=== PATIENT | female | born 1980 | race Caucasian/White ===

== ENCOUNTER 2022-10-28 14:08 | Outpatient (OUT) | payer OTHER, SELFPAY ==
--- NOTE | 2022-10-28 14:22 | US_ITS ---
The [address] [address] Patient Name: REGINALD BURNETT MRN: [id number] date: 1980 Sex: F Assigned Patient Location: [place] Current Patient Location: US Accession/Order Number: [id number] Exam Date: 10/28/2022 14:21 Report Date: 10/28/2022 15:51 At the request of: JACQUIE RAMIREZ Procedure: US pelvis w/ transvaginal EXAM: US pelvis w/ transvaginal HISTORY: Pelvic pain R10.2 COMPARISON: None. TECHNIQUE: Real-time transabdominal imaging of the pelvis. Findings: The uterus is not visualized consistent with provided history of hysterectomy. Nonvisualization of the bilateral ovaries due to overlying bowel gas. IMPRESSION: 1. Visualization of the ovaries. 2. Surgically absent uterus. Electronically authenticated by: ESTEFANI ACEVEDO Date: 10/28/2022 15:51
== END 2022-10-28 14:09 ==
LOC: US 14:14
PROVIDERS: Family Provider Family Medicine; Visit Provider Physician Assistant
DX: R10.2 Pelvic and perineal pain (principal); Z90.710 Acquired absence of both cervix and uterus
CPT/HCPCS: 76830; 76856

== ENCOUNTER 2023-04-19 20:45 | Outpatient (REF) | payer OTHER, SELFPAY ==
[2023-04-23 12:02] LABS: Age Gdln ACOG Testing Note (.); HPV Aptima Negative (Negative); IGP, Aptima HPV, rfx 16/18,45 Note (.)
== END 2023-04-19 20:46 | disposition home or self-care (01) ==
LOC: LAB 20:45
PROVIDERS: Family Provider Family Medicine; Visit Provider Physician Assistant
DX: Z01.419 Encounter for gynecological examination (general) (routine) without abnormal findings (principal)
CPT/HCPCS: 87624; G0145

== ENCOUNTER 2023-05-06 10:59 | Outpatient (OUT) | payer OTHER, SELFPAY ==
--- OUTSIDE RECORDS SUMMARY | 2023-05-06 11:08 | XMS_ITS | CCD ---
Author Name Unknown Address [address] [facility] [address] [place] [address] Organization [facility] Care Team Providers Care Pl Sql Developer Name Role Phone BERENICE, DR HESTER Admitting Unavailable BERENICE, DR HESTER Attending Unavailable BERENICE, DR HESTER Primary Care Unavailable BERENICE, DR HESTER Consulting Unavailable RUMSCHLAG, MEREDITH Admitting Unavailable RUMSCHLAG, MEREDITH Attending Unavailable BERENICE, DR HESTER Primary Care Unavailable POLICARO, MARY LOU Consulting Unavailable RUMSCHLAG, MEREDITH Consulting Unavailable RUMSCHLAG, MEREDITH Admitting Unavailable RUMSCHLAG, MEREDITH Attending Unavailable BERENICE, DR HESTER Primary Care Unavailable RUMSCHLAG, MEREDITH Consulting Unavailable BERENICE, DR HESTER Admitting Unavailable BERENICE, DR HESTER Attending Unavailable BERENICE, DR HESTER Primary Care Unavailable BERENICE, DR HESTER Consulting Unavailable ZIEBER, DR JASON Serna Consulting Unavailable JACQUIE RAMIREZ Attending Unavailable Adelita, Ross Attending Unavailab le Adelita, Ross Admitting Unavailab le Adonis Dozier MD, [facility] Primary Care Unavail able Gianluca ENGINEER CONDUCTOR-COMMERCIAL LINES INSURANCE AGENT, Lima Zaragoza Attending U rosa Dozier MD, [facility] Primary Care Unavail able Lucie Michaels MD Attending Unavail able Adonis Dozier MD, [facility] Primary Care Unavail able Gianluca ENGINEER CONDUCTOR-COMMERCIAL LINES INSURANCE AGENT, Lima Zaragoza Attending U navlorraine Dozier MD, [facility] Primary Care Unavail able Xenia LONDONO, Lucie Hinson Attending Unavail able Adonis Dozier MD, [facility] Primary Care Unavail able Adonis Dozier MD, [facility] Primary Care Unavail able Xenia LONDONO, Lucie Hinson Attending Unavail able Adonis Dozier MD, [facility] Primary Care Unavail able Xenia LONDONO, Lucie Hinson Attending Unavail able Adonis Dozier MD, [facility] Primary Care Unavail able Gianluca ENGINEER CONDUCTOR-COMMERCIAL LINES INSURANCE AGENT, Lima Zaragoza Attending U navailable Adonis Doizer MD, [facility] Primary Care Unavail able Adonis Dozier MD, [facility] Primary Care Unavail able Xenia LONDONO, Lucie Hinson Attending Unavail able Adonis Dozier MD, [facility] Primary Care Unavail able Xenia LONDONO, Lucie Foxlaida Attending Unavail able Gianluca ENGINEER CONDUCTOR-COMMERCIAL LINES INSURANCE AGENT, Lima Zaragoza Attending U navailable Adonis Dozier MD, [facility] Primary Care Unavail able Adonis Dozier MD, [facility] Primary Care Unavail able Xenia LONDONO, Lucie Hinson Attending Unavail able Adonis Dozier MD, [facility] Primary Care Unavail able Gianluca ENGINEER CONDUCTOR-COMMERCIAL LINES INSURANCE AGENT, Lima Zaragoza Attending U navailable Adonis Dozier MD, [facility] Primary Care Unavail able Xenia LONDONO, Lucie Hinson Attending Unavail able Adonis Dozier MD, [facility] Primary Care Unavail able Xenia LONDONO, Lucie Joya Attending Unavail able Adonis Dozier MD, [facility] Primary Care Unavail able Xenia LONDONO, Lucie Foxlaida Attending Unavail able Adonis Dozier MD, [facility] Primary Care Unavail able Xenia LONDONO, Lucie Hinson Attending Unavail able Adonis Dozier MD, [facility] Primary Care Unavail able Gianluca ENGINEER CONDUCTOR-COMMERCIAL LINES INSURANCE AGENT, Lima Zaragoza Attending U navailable Allergies Allergy Classification Reported Allergen(s) Allergy Type Date of Onset Reaction(s) Facility (1 source) Penicillin; Translations: [penicillin] Drug Allergy [facility] Repository Problems Problem Classification Problem Date Documented Date Episodic/Chronic Immunizations and screening for infectious disease (1 source) Encounter for screening for human papillomavirus (HPV); Translations: [ENC SCREENING HUMAN PAPILLOMAVIRUS] Onset: 04-18-2022 Episodic Other connective tissue disease (4 sources) Pain in right thigh; Translations: [PAIN IN RIGHT THIGH] Onset: 04-20-2022 Episodic Other screening for suspected conditions (not mental disorders or infectious disease) (8 sources) Encounter for screening mammogram for malignant neoplasm of breast; Translations: [Encounter for screening for malignant neoplasm of cervix] Onset: 04-13-2022 Episodic Results Test Name Value Interpretation Reference Range Facil ity Provider Letteron 03-08-2023 Provider Letter Michael Dozier MD [address] [place] [address] Re: Janie Burnett Date of Visit: 03/04/2023 Dear Michael Dozier MD, Thank you for the pleasure of contributing to this patient's care. Please see attached office note for my assessment and recommendations from today's visit. Let me know if you have any questions or concerns. Sincerely, Lima Hough, ROSA-BECK Greer Providers: The following document(s) were included in the letter: March 04, 2023 15:54:00 EDT - (03/04/2023) Office Visit Note Normal [facility] Allergy/Immunology Office/Cl inic Noteon 03-04-2023 Allergy/Immunolog y Office/Clinic Note Chief Complaint 3 month follow up for nasal congestion and asthma History of Present Illness Janie is a 42 year old female reporting to our office today for a 3 month follow up for nasal congestion and asthma. Chronic Nasal Congestion: Patient denies any congestion, runny nose and PND. She reports she is using Azelastine and Fluticasone as needed. She also takes Zyrtec daily. She denies any localized reactions with her allergy injections. Asthma: Patient denies any coughing, wheezing and SOB. She is taking Breo daily and Albuterol as needed. She reports she has not needed to use Albuterol since the last office visit. She is not waking up at night due to coughing, wheezing and SOB. She has not been seen in the ER/UC and has not needed antibiotics or oral steroids for breathing symptoms since last office visit. Patient reports she feels like Nucala is still helping her asthma symptoms. She denies any bothersome side effects. She denies any localized reactions at the injection site. Patient reports her epinephrine autoinjector needs to be refilled. Proper technique reviewed. ACT: 24 Peak Flow: 290 70% of Expected: 292 12/02/22: Assessment/Plan 1. Chronic nasal congestion She has been doing well with regards to her rhinitis symptoms on the allergen immunotherapy along with as needed intranasal antihistamine and steroid sprays. I am hopeful that with continued allergy immunotherapy she will need less medications long-term and have persistent symptom control. 2. Severe persistent asthma, well-controlled Her asthma is currently well-controlled on the Breo, Nucala, and albuterol as needed. We discussed that once she has been on allergen immunotherapy and completed treatment course we may consider reevaluation for continuation of Nucala. No changes at this time [1] Review of Systems General Symptoms Appetite change: No Fatigue: No Weakness: No Any frequent/recurrent infections: No Respiratory Symptoms Cough: No Shortness of breath: No Sputum production: No Wheezing: No EENT Symptoms Nasal discharge: No Nasal congestion: No Postnasal drainage: No Sore throat: No Any itching/watering/redne ss to eyes: No Nosebleeds: No Cardiovascular Symptoms Chest pain pressure: No Skin Symptoms Itching: No Rash: No Physical Exam Vitals & Measurements HR: 81 (Peripheral) BP: 135/88 HT: 163 cm WT: 109.9 kg WT: 109.9 kg (Dosing) BMI: 41.36 General: Alert, well nourished, no acute distress. Eye: PERRL, EOMI, normal conjunctiva. HENT: Normocephalic, nonedematous nasal turbinates, moist oral mucosa. Neck: Supple, non-tender, no lymphadenopathy. Lungs: Clear to auscultation, non-labored respiration. Heart: Normal rate, regular rhythm, no murmur, gallop or edema. Skin: Skin is warm, dry and pink, no rashes or lesions. Neurologic: Awake, alert. Psychiatric: Cooperative, appropriate mood and affect. Additional Vitals BP Position/Location: Sitting, Right arm Assessment/Plan 1. Severe persistent asthma Chronic, stable on current therapies. -Continue Breo daily -Continue albuterol as needed for cough, shortness of breath, wheeze -Follow-up with pulmonology as previously planned -Continue Nucala monthly 2. Chronic allergic rhinitis due to fungal spores Chronic nasal symptoms are well controlled on current therapies. Janie is no longer requiring daily oral antihistamines to control symptoms. -Continue Zyrtec daily as needed on shot days -Continue nasal sprays as needed -Continue monthly allergy injections -Notify office if allergy symptoms become uncontrolled Follow-up in 4 months or sooner if needed Time Spent with the Patient I have personally spent [] minutes on this date, directly related to today's patient visit, including pre and post visit work, for this date of service. Time listed does not include time spent on separately billable services. Reviewed previous allergy office notes Problem List/Past Medical History Ongoing Allergic rhinitis due to mold Chronic allergic rhinitis due to fungal spores Depression Eosinophilia Epilepsy GERD Obesity Post-nasal drip Seizures Severe persistent asthma SOB - Shortness of breath Visual impairment Historical No qualifying data Medications ARIPiprazole 10 mg oral tablet, 10 mg= 1 tabs, Oral, Daily azelastine 137 mcg/inh (0.1%) nasal spray, 1 sprays, Nasal, BID, 5 refills benzonatate 200 mg oral capsule Breo Ellipta 200 mcg-25 mcg/inh inhalation powder, 1 puffs, Inhale, Daily cetirizine 10 mg oral tablet, 10 mg= 1 tabs, Oral, Daily, 5 refills citalopram 20 mg oral tablet, 20 mg= 1 tabs, Oral, Daily fluticasone 50 mcg/inh nasal spray, See Instructions, 5 refills lamoTRIgine 100 mg oral tablet, 100 mg= 1 tabs, Oral, BID Misc Medication mometasone 50 mcg/inh nasal spray, 2 sprays, Nasal, BID montelukast 10 mg oral tablet Nucala, 100 mg, Subcutaneous, q28day Nucala 100 mg subcutaneous injection, 100 mg, Subcutane (more content not included)... Normal [facility] Provider Letteron 12-16-2022 Provider Letter Michael Dozier MD [address] [place] [address] Re: Janie Burnett 1980 Date of Visit: 12/02/2022 Dear Michael Dozier, I had the pleasure of evaluating your patient, Janie Burnett, in the [facility] on 12/02/2022. Attached you will find my office visit note with detailed assessment and recommendations. Thank you for allowing me to participate in the care of your kind patient. The patient was provided with discharge instructions, both written and verbal, and follow up has been arranged as stated in the attached note. Please do not hesitate to contact our office with any questions. Sincerely, Lucie Michaels MD MS [facility] [address] [place] [address] C C Providers: The following document(s) were included in the letter: December 02, 2022 17:11:59 EDT - (12/02/2022) Office Visit Note Normal [facility] Allergy/Immunology Office/Cl inic Noteon 12-02-2022 Allergy/Immunolog y Office/Clinic Note Chief Complaint cough History of Present Illness Janie is a 41 year old female here in office for follow up for cough. She states she does get a dry cough, tickle feeling at times. She denies any shortness of breath or wheezing. She denies a cough waking her at night. She states she continues Breo daily, Nucala every 28 days, and her Albuterol as needed. She denies any issues with her Nucala injections. She states she hasn't had to use her Albuterol inhaler in months. She denies any recent illnesses or fevers. She denies needing to go to ER/Urgent care for breathing or allergy issues since last visit. She denies needing any antibiotics or steroids for breathing/allergy issues since last visit. She states she continues to follow pulmonology. Her ACT today = 24. Her Peak flow today = 350. 70% of estimated peak flow = 293. She denies any nasal discharge, nasal congestion, PND, sore throat, itchy/watery/red eyes, nosebleeds, or sinus infections. She continues to take Zyrtec daily as needed and with shot days. She continues Mometasone and Azelastine nasal sprays 1-2 sprays per nostril twice daily as needed. She continues with allergy shots. She states she is doing well with her allergy shots, she states the sites will get red and have some swelling, but usually go away quickly. She started AIT in August of 2020 and reached maintenance dose on 11-19-21. 06/02/22 Assessment/Plan 1. SOB - Shortness of breath Recent onset of intermittent shortness of breath with chest heaviness over the last 24 hours without any other symptoms such as fever, chills, or nasal symptoms. Janie has not trialed albuterol to see if this helps alleviate her shortness of breath. Albuterol 2 puffs (patient's own medication) via inhaler did help alleviate some of the shortness of breath/chest tightness Janie was having. Due to the symptoms we will hold off on Janie receiving her allergy immunotherapy injection today. Peak flows within acceptable range. 2. Severe persistent asthma Chronic, stable until last 24 hours with increased shortness of breath/chest tightness. Will defer to pulmonology to determine if additional medications are needed; lungs are clear, PF good, and pulse ox 97%. - Continue Breo daily (managed by [facility]) [no longer on Singulair per self discretion] -Continue Nucala 100 mg SC every 28 days - Bring epinephrine to each injection visit and keep with you for 2 hours afterwards,; use for treatment of life-threatening allergic reaction as needed. -Call local company hazmat driver's office today to schedule an appt to discuss lingering cough and shortness of breath 3. Allergic rhinitis due to mold -Continue allergen avoidance measures: mold, cat, dog (no regular animal exposure) -Continue Zyrtec 10 mg daily as needed and on shot days - Continue mometasone + azelastine 1-2 sprays of each medication/nostril twice a day as needed - Continue allergy immunotherapy (IT) to reduce symptoms and medication use (start 08/2020; reached maintenance red 0.5 ml on ). Janie can reschedule her next allergy injection once asthma symptoms have resolved. Orders: [id number] AMB Allergy injection NC [1] Physical Exam Vitals & Measurements T: 36.9 ?C (Temporal Artery) HR: 92 (Peripheral) BP: 121/78 HT: 163 cm WT: 110.7 kg WT: 110.7 kg (Dosing) BMI: 41.67 Constitutional: The patient is oriented to person, place, and time and well-developed, well-nourished, and in no distress. HENT: Head: Normocephalic and atraumatic. Right Ear: Tympanic membrane, external ear and ear canal normal. No drainage or tenderness. Tympanic membrane is not injected, not scarred, not perforated, not erythematous and not retracted. Left Ear: Tympanic membrane, external ear and ear canal normal. No drainage or tenderness. Tympanic membrane is not injected, not scarred, not perforated, not erythematous and not retracted. Nose: Mucosal edema moderate (pale boggy nasal mucosa without obstruction or nasal polyps) and rhinorrhea (clear) ispresent. Mouth/Throat: Uvula is midline, oropharynx is clear and moist and mucous membranes are normal. Eyes: Conjunctivae and EOM are normal. Pupils are equal, round, and reactive to light. Neck: Normal range of motion. Neck supple. Cardiovascular: Normal rate and regular rhythm. No murmur heard. Pulmonary/Chest: Effort normal and breath sounds normal. No wheezes. No rales. Abdominal: Soft. Bowel sounds are normal. No masses.Musculoskeletal : Normal range of motion. No visible edema. Neurological: Alert and oriented to person, place, and time. Skin: Skin is warm and dry. No rash noted. Not diaphoretic. No erythema. Psychiatric: Affect normal. Vitals Reviewed Additional Vitals BP 118/88 HR 84 post Nucala and allergy shots Assessment/Plan 1. Chronic nasal congestion She has been doing well with regards to her rhinitis symptoms on the allergen immunotherapy along with as needed intranasal antihistamine and steroid sprays. I am hopeful that with continued allergy imm (more content not included)... Normal [facility] Provider Letteron 06-03-2022 Provider Letter Layla Aden CNP [address] [id number] Re: Janie Burnett Date of Visit: 06/02/2022 Dear Layla Aden COMMERCIAL LINES INSURANCE AGENT, Thank you for the pleasure of contributing to this patient's care. Please see attached office note for my assessment and recommendations from today's visit. Let me know if you have any questions or concerns. Sincerely, Lima Hough APRN-BECK C C Providers: The following document(s) were included in the letter: June 02, 2022 15:22:33 EST - (06/02/2022) Office Visit Note Normal [facility] Provider Letter Michael Dozier MD [address] [place] [address] Re: Janie Burnett Date of Visit: 06/02/2022 Dear Michael Dozier MD, Thank you for the pleasure of contributing to this patient's care. Please see attached office note for my assessment and recommendations from today's visit. Let me know if you have any questions or concerns. Sincerely, Lima Hough APRN-COMMERCIAL LINES INSURANCE AGENT C C Providers: Silva [facility] Allergy/Immunology Office/Cl inic Noteon 06-02-2022 Allergy/Immunolog y Office/Clinic Note Chief Complaint follow up AR History of Present Illness Janie is a 41 year old female in office for a 6 month follow up for AR and Nucala management. Janie notes she has been having intermittent sob that started yesterday. She states she needed to use her albuterol inhaler once 3 days ago for sob that resolved. Janie reports prior to this need, she has not used her rescue inhaler for awhile. Janie reports she has been consistent with receiving her monthly Nucala injections, which she feels has helped her asthma symptoms. She denies any waking at night due to coughing, wheezing, sob, or any steroids for any breathing difficulties. After further discussion, Janie states that she had influenza A about a month ago and she will have a random cough triggered by taking a deep breath. She reports that she needed to take a course of ATB but no steroids at that time. She continues to use Breo 1 puff daily. She states that she has some chest tightness with the sob. She has not attempted to use albuterol to see if it helps her symptoms. She used 2 puffs while in office and did note some relief after PF obtained. ACT score=23 PF: 70% expected of 093=810 1st attempt PF: 250 (poor technique) 2nd attempt PF: 275 (por technique) 3rd attempt PF:320 AR Janie states that allergies are well controlled. She is continuing to use mometasone 2 sprays/nostril along with taking Zyrtec daily. She reports she does not normally miss a dose of her medications. She gets allergy injections and tolerates them well. She denies any itching, redness, or swelling that last more then 3 days. (10/22/21) Assessment/Plan 1. Allergic rhinitis due to mold Chronic nasal and sinus symptoms have significantly improved since starting allergy immunotherapy and no longer requiring oral antihistamine daily to control symptoms. -Continue allergen avoidance measures: mold, cat, dog (no regular animal exposure) -Continue Zyrtec 10 mg daily as needed and on shot days - fluticasone + azelastine 1-2 sprays of each medication/nostril twice a day as needed -Continue allergy immunotherapy (IT) to reduce symptoms and medication use (start 08/2020). Janie would like to transition her allergy shots to her PCP's office (outside provider form given). [1] [1] Follow-up in 6 months for allergic rhinitis on AIT, Nucala management or sooner if needed 2. Severe persistent asthma Chronic, well controlled; significant improvement since starting Nucala and able to step down on daily asthma medications. -Continue Breo daily (managed by [facility]) -Continue to hold Singulair 10 mg daily (discuss with pulmonology regarding discontinuation) -Continue Nucala 100 mg SC every 28 days (managed by Dr. Anu [facility]) [2] [2] 3. Eosinophilia 4. Post-nasal drip [1] Review of Systems General Symptoms Appetite change: No Fatigue: No Weakness: No Any frequent/recurrent infections: No Respiratory Symptoms Cough: No Shortness of breath: Yes Sputum production: No Wheezing: No EENT Symptoms Nasal discharge: No Nasal congestion:No Postnasal drainage: No Sore throat: No Any itching/watering/redne ss to eyes:No Cardiovascular Symptoms Chest pain pressure: Yes Gastrointestinal Symptoms Abdominal pain: No Constipation: No Diarrhea: No Nausea: No Vomiting: No Genitourinary Symptoms Decreased urine output: No Skin Symptoms Itching: No Rash: No Musculoskeletal Back pain: No Joint pain: No Joint stiffness:No Joint swelling: No Neurological Symptoms Headache: No Numbness: No Tremor: No Psychiatric Symptoms Anxiety: No Depression: No Hematologic/Lymphatic Symptoms Bruising: No Bleeding tendencies: No Physical Exam Vitals & Measurements T: 36.0 ?C (Temporal Artery) HR: 99 (Peripheral) BP: 122/86 HT: 163.2 cm WT: 107.6 kg WT: 107.6 kg (Dosing) BMI: 40.4 General: [Alert, well nourished, no acute distress]. Eye: [PERRL, EOMI, normal conjunctiva]. HENT: [Normocephalic, nonedematous nasal turbinates, moist oral mucosa]. Neck: [Supple, non-tender, no lymphadenopathy]. Lungs: [Clear to auscultation, non-labored respiration]. Heart: [Normal rate, regular rhythm, no murmur, gallop or edema]. Skin: [Skin is warm, dry and pink, no rashes or lesions]. Neurologic: [Awake, alert]. Psychiatric: [Cooperative, appropriate mood and affect]. Additional Vitals BP Position/Location: Sitting, Left arm SpO2 on oxygen: 97 % Assessment/Plan 1. SOB - Shortness of breath Recent onset of intermittent shortness of breath with chest heaviness over the last 24 hours without any other symptoms such as fever, chills, or nasal symptoms. Janie has not trialed albuterol to see if this helps alleviate her shortness of breath. Albuterol 2 puffs (patient's own medication) via inhaler did help alleviate some of the shortness of breath/chest tightness Janie was having. Due to the symptoms we will (more content not included)... Normal [facility] FREE T4on 05-12-2022 Free T4 [Mass/Vol] 1.07 ng/dL Normal 0.76-1.46 [facility] Comment on above: Performed By: #### F T4 #### [facility] [address] [place] [address] Dr. Brandon Frank HEMOGRAM AND PLATELon 2022 Hematocrit (Bld) [Volume fraction] 41.7 % Normal 36.0-48.0 [facility] Comment on above: Performed By: #### H H #### [facility] [address] [place] [address] Dr. Brandon Frank Hemoglobin (Bld) [Mass/Vol] 13.7 g/dL Normal 12.0-16.0 [facility] Comment on above: Performed By: #### H H #### [facility] [address] [place] [address] Dr. Brandon Frank MCH (RBC) [Entitic mass] 29.0 pg Normal 26.7-34.0 [facility] Comment on above: Performed By: #### H H #### [facility] [address] [place] [address] Dr. Brandon Frank MCHC (RBC) [Mass/Vol] 32.9 g/dL Normal 29.9-35.2 [facility] Comment on above: Performed By: #### H H #### [facility] [address] [place] [address] Dr. Brandon Frank MCV (RBC) [Entitic vol] 88.3 fL Normal 81.0-99.0 [facility] Comment on above: Performed By: #### H H #### [facility] [address] [place] [address] Dr. Brandon Frank PLT 266 103/ul Normal 150-450 [facility] Comment on above: Performed By: #### H H #### [facility] [address] [place] [address] Dr. Brandon Frank RBC 4.72 106/ul Normal 4.20-5.40 [facility] Comment on above: Performed By: #### H H #### [facility] [address] [place] [address] Dr. Brandon Frank WBC 6.5 103/ul Normal 4.0-11.0 [facility] Comment on above: Performed By: #### H H #### [facility] [address] [place] [address] Dr. Brandon Frank PROF 14(COMP METB)on 023 Albumin [Mass/Vol] 3.4 g/dL Normal 3.4-5.0 [facility] Comment on above: Performed By: #### T SH, CMP #### [facility] [address] [place] [address] Dr. Brandon Frank Albumin/Globulin [Mass ratio] 0.8 {ratio} Normal [facility] Comment on above: Performed By: #### T SH, CMP #### [facility] [address] [place] [address] Dr. Brandon Frank ALP [Catalytic activity/Vol] 82 U/L Normal 46-116 [facility] Comment on above: Performed By: #### T SH, CMP #### [facility] [address] [place] [address] Dr. Brandon Frank ALT [Catalytic activity/Vol] 53 U/L Normal 14-59 [facility] Comment on above: Performed By: #### T SH, CMP #### [facility] [address] [address] [address] Brandon Frank Anion gap [Moles/Vol] 12.6 mmol/L Normal [facility] Comment on above: Performed By: #### T SH, CMP #### [facility] [address] [address] [address] Brandon Frank AST [Catalytic activity/Vol] 37 U/L Normal 15-37 [facility] Comment on above: Performed By: #### T SH, CMP #### [facility] [address] [address] [address] Brandon Frank Bilirubin [Mass/Vol] 0.8 mg/dL Normal 0.2-1.0 [facility] Comment on above: Performed By: #### T SH, CMP #### [facility] [address] [place] [address] Dr. Brandon Frank Calcium [Mass/Vol] 8.9 mg/dL Normal 8.5-10.1 [facility] Comment on above: Performed By: #### T SH, CMP #### [facility] [address] [place] [address] Dr. Brandon Frank Chloride [Moles/Vol] 104 mmol/L Normal 98-107 [facility] Comment on above: Performed By: #### T SH, CMP #### [facility] [address] [place] [address] Dr. Brandon Frank CO2 [Moles/Vol] 25.8 mmol/L Normal 21.0-32.0 [facility] Comment on above: Performed By: #### T SH, CMP #### [facility] [address] [place] [address] Dr. Brandon Frank Creatinine [Mass/Vol] 0.81 mg/dL Normal 0.55-1.02 [facility] Comment on above: Performed By: #### T SH, CMP #### [facility] [address] [place] [address] Dr. Brandon Frank EGFR-AF FILIPINO >60 Normal >=60 [facility] Comment on above: Performed By: #### T SH, CMP #### [facility] [address] [place] [address] Dr. Brandon Frank EGFR-NON AF FILIPINO >60 Normal >=60 [facility] Comment on above: Performed By: #### T SH, CMP #### [facility] [address] [place] [address] Dr. Brandon Frank Globulin (S) [Mass/Vol] 4.1 g/dL Normal [facility] Comment on above: Performed By: #### T SH, CMP #### [facility] [address] [place] [address] Dr. Brandon Frank Glucose [Mass/Vol] 107 mg/dL Critically high 74-106 [facility] Comment on above: Performed By: #### T XENA, CMP #### [facility] [address] [place] [address] Dr. Brandon Frank Potassium [Moles/Vol] 4.4 mmol/L Normal 3.5-5.1 [facility] Comment on above: Performed By: #### T XENA, CMP #### [facility] [address] [place] [address] Dr. Brandon Frank Protein [Mass/Vol] 7.5 g/dL Normal 6.4-8.2 [facility] Comment on above: Performed By: #### T XENA, CMP #### [facility] [address] [place] [address] Dr. Brandon Frank Sodium [Moles/Vol] 138 mmol/L Normal 136-145 [facility] Comment on above: Performed By: #### T XENA, CMP #### [facility] [address] [place] [address] Dr. Brandon Frank Urea nitrogen [Mass/Vol] 10.0 mg/dL Normal 7.0-18.0 [facility] Comment on above: Performed By: #### T SH, CMP #### [facility] [address] [place] [address] Dr. Brandon Frank Urea nitrogen/Creatini ne [Mass ratio] 12.3 mg/mg Normal [facility] Comment on above: Performed By: #### T XENA, CMP #### [facility] [address] [place], [place] [address] Dr. Brandon Frank TSHon 05-12-2022 TSH 1.593 uIU/mL Normal 0.358-3.740 [facility] Comment on above: Performed By: #### T , [facility] #### [facility] [address] [place], [place] [address] Dr. Brandon Frank MG MAMM SCREEN 3D ANTONIO CADon 04-30-2022 MG MAMM SCREEN 3D ANTONIO CAD Patient: JANIE BURNETT Exam Date: 04/30/2022 : 1980 Gender:F Ordering : DR KACIE ETIENNE . Admission #: [id number] Family : Order #: [id number] CLICK HERE TO VIEW EXAM RADIOLOGY REPORT PROCEDURE: MAMMOGRAM SCREENING 3D BILATERAL CAD COMPARISON: None. INDICATIONS: Screening for malignant neoplasm of breast Calculator Name NCI Breast Cancer Risk Assessment Tool 5 Year Breast Cancer Risk 0.70% Lifetime Breast Cancer Risk 10.90% Personal Breast Cancer No Personal Ovarian Cancer No Treatments None Family Cancers None LOCATION: [facility] BREAST COMPOSITION: Scattered areas fibroglandular density. FINDINGS: DIAGNOSTIC CATEGORY 2--BENIGN FINDING: RIGHT BREAST: No significant suspicious finding. Scattered benign-appearing asymmetries and lymph nodes are present. LEFT BREAST: No significant suspicious finding. RECOMMENDATIONS: ROUTINE MAMMOGRAM AND CLINICAL EVALUATION IN 12 MONTHS. PLEASE NOTE: A NORMAL MAMMOGRAM DOES NOT EXCLUDE THE POSSIBILITY OF BREAST CANCER. A CLINICALLY SUSPICIOUS PALPABLE LUMP SHOULD BE BIOPSIED. Dictated by: Jason Hagan M.D. on 04/30/2022 at 15:38 Approved by: Jason Hagan M.D. on 04/30/2022 at 15:42 Normal [facility] US TANNA DOP LEG RTon 04-30-20 22 US TANNA DOP LEG RT Begin Addendum # 1 There are no images provided of the right groin, per tandem mill sticker there was no evidence of an inguinal hernia on the exam. If patient with persistent right groin pain, a dedicated CT could be performed. Exclude hematuria. Original Report ULTRASOUND RIGHT LOWER EXTREMITY COLOR VENOUS DUPLEX HISTORY: Swelling. Right groin pain. COMPARISON: None. PROCEDURE: Duplex ultrasound and Doppler images were obtained of the right lower extremity. Venous duplex examination performed using B-mode, color flow and spectral analysis. FINDINGS: There is normal color flow and compressibility seen in the visualized deep venous structures of the right lower extremity with no evidence for thrombosis seen. The profundus and saphenous veins are patent. There are normal venous Doppler waveforms. IMPRESSION: No evidence for DVT. Normal [facility] PAP ACOG PANEL 2: 30 to 65on 04-21-2022 . . Normal [facility] Comment on above: Result Comment: Perf ormed at: WB Performed By: #### [id number] #### [facility] [address] [address] [address] Brandon Frank Age Gdln ACOG Testing 30-65 Normal [facility] Comment on above: Performed By: #### [id number] #### [facility] [address] [address] [address] Brandon Frank DIAGNOSIS: Comment Normal [facility] Comment on above: Result Comment: NEGA TIVE FOR INTRAEPITHELIAL LESION OR MALIGNANCY. PREDOMINANCE OF COCCOBACILLI CONSISTENT WITH SHIFT IN VAGINAL ADI IS PRESENT. Performed at: WB Performed By: #### [id number] #### [facility] [address] [address] [address] Brandon Frank HPV Aptima Negative Normal Negative [facility] Comment on above: Result Comment: This nucleic acid amplification test detects fourteen high-risk HPV types (16,18,31,33,35,39,45,51,52,56,58,59,66,68) without differentiation. Performed at: =G Performed By: #### [id number] #### [facility] [address] [address] [address] Brandon Frank HPV Genotype Reflex Comment Normal [facility] Comment on above: Result Comment: Crit eria not met, HPV Genotype not performed. Performed at: WB Performed By: #### [id number] #### [facility] [address] [address] [address] Brandon Frank Methodology: Comment Normal [facility] Comment on above: Result Comment: This liquid based ThinPrep(R) pap test was screened with the use of an image guided system. Performed at: WB Performed By: #### [id number] #### [facility] [address] [place] [address] Dr. Brandon Frank Note: Comment [facility] Comment on above: Result Comment: The Pap smear is a screening test designed to aid in the detection of premalignant and malignant conditions of the uterine cervix. It is not a diagnostic procedure and should not be used as the sole means of detecting cervical cancer. Both false-positive and false-negative reports do occur. . Performed at: WB Performed By: #### [id number] #### [facility] [address] [address] [address] Brandon Frank Performed by: Comment Normal [facility] Comment on above: Result Comment: Nida Nguyen, [employer] Performed at: WB Performed By: #### [id number] #### [facility] [address] [place] [address] Dr. Brandon Frank Specimen adequacy: Comment [facility] Comment on above: Result Comment: Sati sfactory for evaluation. No endocervical component is identified. Performed at: WB Performed By: #### [id number] #### [facility] [address] [place] [address] Dr. Brandon Frank Ambulatory Clinical Summaryo n 07-30-2020 Ambulatory Clinical Summary {[id number] Normal [facility] Patient Educationon 07-31-19 21 Patient Education Urinary Frequency The number of times a normal person urinates depends upon how much liquid they take in and how much liquid they are losing. If the temperature is hot and there is high humidity then the person will sweat more and usually breathe a little more frequently. These factors decrease the amount of frequency of urination that would be considered normal. The amount you drink is easily determined, but the amount of fluid lost is sometimes more difficult to calculate. Fluid is lost in two ways: ? Sensible fluid loss is usually measured by the amount of urine that you get rid of. Losses of fluid can also occur with diarrhea. ? Insensible fluid loss is more difficult to measure. It is caused by evaporation. Insensible loss of fluid occurs through breathing and sweating. It usually ranges from a little less than a quart to a little more than a quart of fluid a day. In normal temperatures and activity levels the average person may urinate 4 to 7 times in a 24-hour period. Needing to urinate more often than that could indicate a problem. If one urinates 4 to 7 times in 24 hours and has large volumes each time, that could indicate a different problem from one who urinates 4 to 7 times a day and has small volumes. The time of urinating is also an important. Most urinating should be done during the waking hours. Getting up at night to urinate frequently can indicate some problems. CAUSES The bladder is the organ in your lower abdomen that holds urine. Like a balloon, it swells some as it fills up. Your nerves sense this and tell you it is time to head for the bathroom. There are a number of reasons that you might feel the need to urinate more often than usual. They include: ? Urinary tract infection. This is usually associated with other signs such as burning when you urinate. ? In men, problems with the prostate (a walnut-size gland that is located near the tube that carries urine out of your body). There are two reasons why the prostate can cause an increased frequency of urination: ? An enlarged prostate that does not let the bladder empty well. If the bladder only half empties when you urinate then it only has half the capacity to fill before you have to urinate again. ? The nerves in the bladder become more hypersensitive with an increased size of the prostate even if the bladder empties completely. ? . ? Obesity. Excess weight is more likely to cause a problem for women more than for men. ? Bladder stones or other bladder problems. ? Caffeine. ? Alcohol. ? Medications. For example, drugs that help the body get rid of extra fluid (diuretics ) increase urine production. Some other medicines must be taken with lots of fluids. ? Muscle or nerve weakness. This might be the result of a spinal cord injury, a stroke, multiple sclerosis or Parkinson's disease. ? Long-standing diabetes can decrease the sensation of the bladder. This loss of sensation makes it harder to sense the bladder needs to be emptied. Over a period of years the bladder is stretched out by constant overfilling. This weakens the bladder muscles so that the bladder does not empty well and has less capacity to fill with new urine. ? Interstitial cystitis (also called painful bladder syndrome). This condition develops because the tissues that line the insider of the bladder are inflamed (inflammation is the body's way of reacting to injury or infection). It causes pain and frequent urination. It occurs in women more often than in men. DIAGNOSIS ? To decide what might be causing your urinary frequency, your healthcare provider will probably: ? Ask about symptoms you have noticed. ? Ask about your overall health. This will include questions about any medications you are taking. ? Do a physical examination. ? Order some tests. These might include: ? A blood test to check for diabetes or other health issues that could be contributing to the problem. ? Urine testing. This could measure the flow of urine and the pressure on the bladder. ? A test of your neurological system (the brain, spinal cord and nerves). This is the system that senses the need to urinate. ? A bladder test to check whether it is emptying completely when you urinate. ? Cytoscopy. This test uses a thin tube with a tiny camera on it. It offers a look inside your urethra and bladder to see if there are problems. ? Imaging tests. You might be given a contrast dye and then asked to urinate. X-rays are taken to see how your bladder is working. TREATMENT It is important for you to be evaluated to determine if the amount or frequency that you have is unusual or abnormal. If it is found to be abnormal the cause should be determined and this can usually be found out easily. Depending upon the cause treatment could include medication, stimulation of the nerves, or surgery. There are not too many things that you can do as an individual to change your urinary frequency. It is important that you balance the amount of fluid intake needed to compensate for your activity and the temperature. Medical problems will be diagnosed and taken care of by your physician. There is no particular bladder training such as Kegel's exercises that you can do to help urinary frequency. This is an exercise this is usually done for people who have leaking of urine when they laugh cough or sneeze. HOME CARE INSTRUCTIONS ? Take any medications your healthcare provider prescribed or suggested. Follow the directions carefully. ? Practice any lifestyle changes that are recommended. These might include: ? Drinking less fluid or drinking at different times of the day. If you need to urinate often during the night, for example, you may need to stop drinking fluids early in the evening. ? Cutting down on caffeine or alcohol. They both can make you need to urinate more often than normal. Caffeine is found in coffee, tea and sodas. ? Losing weight, if that is recommended. ? Keep a journal or a log. You might be asked to record how much you drink and when and when you feel the need to urinate. This will also help evaluate how well the treatment provided by your physician is working. SEEK MEDICAL CARE IF: ? Your need to urinate often gets worse. ? You feel increased pain or irritation when you urinate. ? You notice blood in your urine. ? You have questions about any medications that your healthcare provider recommended. ? You notice blood, pus or swelling at the site of any test or treatment procedure. ? You develop a fever of more than 100.5? F (38.1? C). SEEK IMMEDIATE MEDICAL CARE IF: You develop a fever of more than 102.0? F (38.9? C). Document Released: 02/20/2010 Document Revised: 07/18/2012 Document Reviewed: 02/20/2010 ExitCare? Patient Information ?2013 [employer]. Normal [facility] Urology Office/Clinic Noteon 07-30-2020 Urology Office/Clinic Note Chief Complaint Janie is here today for follow-up visit. She states that her voiding complaints have significantly improved since her urethral dilation was completed. HPI Staff Janie is a 39 y.o. female here for a 4 month follow up. Patient has a hx of incomplete bladder emptying, urge incontinence and urgency of urination.. Patient is S/P cysto/ UD 03/25/20.. Dysuria: _Denies Incomplete bladder emptying: _most of the time Hematuria: _No visible blood in urine Frequency: _yes, but feels like not a lot comes out Urgency: _yes Nocturia: _Denies Stream: _some hesitancy at times. Leaking: _yes Post void dripping: _Denies Wearing pads/ Depends: _Denies Urge incontinence: _yes, mild Stress incontinence: _mild Incontinence without Sensory Awareness: _Denies Abdominal pain: _Denies Flank pain: _Denies Sexual complaints: _ History of Present Illness Reviewed last encounter. There have been no associated fever, chills, flank pain or blood in the urine. Pt. denies any pain/burning with urination at this time. Review of Systems PHQ Score Initial Depression Screen Score: 0 ROS - Provider Constitutional: denies weight loss, denies hot flashes. Eyes: denies eye problems. Gastrointestinal: denies nausea, denies vomiting. Cardiovascular: denies chest pain or angina. Integumentary: no dryness Musculoskeletal: denies musculoskeletal symptoms. ENMT: denies otolaryngeal symptoms. Respiratory: no shortness of breath. Heme/Lymph: denies easy bleeding tendency, denies easy bruising tendency. Psychiatric: no confusion, no anxiety. Genitourinary: denies vaginal discharge, denies incontinence, denies dysuria, denies hematuria, denies urinary frequency, denies amenorrhea, denies menorrhagia, denies abnormal bleeding, denies pelvic pain, denies genital sores, and denies decreased libido. Physical Exam Vitals & Measurements HR: 72(Peripheral) BP: 95/75 HT: 160 cm HT: 160.0 cm WT: 92.98 kg WT: 93.0 kg BMI: 36.32 General Appearance: alert , no acute distress, well nourished, well developed female. Genitourinary: bladder nonpalpable, no flank pain. Assessment/Plan Overall most of her symptoms have resolved. She still has occasional voiding problems as listed. Will follow up as needed. 1. Other urethral stricture, female (N35.82: Other urethral stricture, female) S/p Cysto/UD 03/25/2020. Pt. is doing well overall w/ urination since the procedure. All questions/concerns were discussed. Pt. to call the office if sheencounters any issues prior. Pt. acknowledges understanding. 2. Incomplete bladder emptying (R33.9: Retention of urine, unspecified) Hx of. Pt. feels that she is emptying most of the time. PVR today - 75ml. 3. Frequency of urination (R35.0: Frequency of micturition) Improved w/ UD. 4. Urge incontinence (N39.41: Urge incontinence) Mild. 5. Urinary hesitancy (R39.11: Hesitancy of micturition) Intermittent. I have reviewed the previous health record information and history for this pt. from Dr. Nguyen. Follow-up With When Contact Information Patrick Hyatt MD, Yemi [address] [place] [place] [address]- Additional Instructions: prn Patient Education Urinary Frequency I, Erna Barron , personally scribed for Dr. Nguyen on 07/30/2020 13:50:40. . Documentation recorded by the scribe, Erna Barron, accurately reflects the services(s) I performed and decisions made by me. Authenticated by Dr. Nguyen on 07/30/2020 14:14:02. Problem List/Past Medical History Ongoing BMI 37.0-37.9, adult Chronic headaches Chronic sinusitis Depression Deviated nasal septum Epilepsy Flank pain Incomplete bladder emptying Urge incontinence Urgency of urination Historical No qualifying data Procedure/Surgical History Cystourethroscopy with dilation of urethral stricture (03/25/2020), septoplasty image guided (03/14/2015), bilateral frontal sinus exploration (03/02/2013), bilateral maxillary antrostomy (03/02/2013), bilateral sphenoidotomy with image guidance (03/02/2013), bilateral total ethmoidectomy (03/02/2013), Hysterectomy, TEMPORAL LOBE SURGERY, Tubal ligation. Medications cyanocobalamin 250 mcg oral tablet, 250 mcg= 1 tab(s), Oral, Daily Cymbalta 30 mg Cap-DR, 1 cap(s), Oral, BID Flonase 0.05 mg/inh Hardin, 2 spray(s), Nasal, BID Flovent HFA 220 Inhaler, 2 puff(s), Inhalation, BID, PRN Lamictal 100 mg Tab, 100 mg= 1 tab(s), Oral, BID metformin 500 mg ER Tab, Oral, Daily Nexium 40 mg Cap-EC, 1 tab, Oral, Daily, PRN Symbicort 80/4.5 inhalation aerosol with adapter, 2 puff(s), Inhalation, BID traZODONE 100 mg Tab, Oral, BID Allergies penicillin (Trouble breathing) Social History Alcohol - Denies Alcohol Use, 02/20/2013 Substance Abuse - Denies Substance Abuse, 02/20/2013 Tobacco - Denies Tobacco Use, 02/20/2013 Never (less than 100 in lifetime) Tobacco Use:. Never Smokeless Tobacco Use:., 07/30/2020 Family History Asthma: Mother. Diabetes mellitus: Grandparent. Hypertension: Father. Primary malignant neoplasm of lung: Grandparent. Immunizations Vaccine Date Status influenza virus vaccine, inactivated 01/2020 Recorded Normal [facility] Comment on above: Result Comment: Elec tronically Signed By: Patrick Hyatt MD, Yemi Yee\.br\Date and Time Signed: 07/30/20 14:14 EDT\.br\Electronically Co-Signed By: Erna Barron MA\.br\Date and Time Co-Signed: 07/30/20 13:50 EDT Consent for Procedure/Surger yon 03-26-2020 Consent for Procedure/Surgery [id number] 0CD:127 Normal [facility] Ambulatory Clinical Summaryo n 03-25-2020 Ambulatory Clinical Summary {[id number] }[id number] Normal [facility] Patient Educationon 03-25-20 20 Patient Education Obesity Obesity is having too much body fat and a body mass index (BMI) of 30 or more. BMI is a number based on your height and weight. The number is an estimate of how much body fat you have. Obesity can happen if you eat more calories than you can burn by exercising or other activity. It can cause major health problems or emergencies. HOME CARE ? Exercise and be active as told by your doctor. Try: ? Using stairs when you can. ? Parking farther away from store doors. ? Gardening, biking, or walking. ? Eat healthy foods and drinks that are low in calories. Eat more fruits and vegetables. ? Limit fast food, sweets, and snack foods that are made with ingredients that are not natural (processed food ). ? Eat smaller amounts of food. ? Keep a journal and write down what you eat every day. Websites can help with this. ? Avoid drinking alcohol. Drink more water and drinks without calories. ? Take vitamins and dietary pills (supplements ) only as told by your doctor. ? Try going to weight-loss support groups or classes to help lessen stress. Dieticians and counselors may also help. GET HELP RIGHT AWAY IF: ? You have chest pain or tightness. ? You have trouble breathing or feel short of breath. ? You feel weak or have loss of feeling (numbness ) in your legs. ? You feel confused or have trouble talking. ? You have sudden changes in your vision. MAKE SURE YOU: ? Understand these instructions. ? Will watch your condition. ? Will get help right away if you are not doing well or get worse. Document Released: 07/18/2012 Document Reviewed: 07/18/2012 ExitCare? Patient Information ?2013 [employer]. [facility] Medicine Obesity Obesity is having too much body fat and a body mass index (BMI) of 30 or more. BMI is a number based on your height and weight. The number is an estimate of how much body fat you have. Obesity can happen if you eat more calories than you can burn by exercising or other activity. It can cause major health problems or emergencies. HOME CARE ? Exercise and be active as told by your doctor. Try: ? Using stairs when you can. ? Parking farther away from store doors. ? Gardening, biking, or walking. ? Eat healthy foods and drinks that are low in calories. Eat more fruits and vegetables. ? Limit fast food, sweets, and snack foods that are made with ingredients that are not natural (processed food ). ? Eat smaller amounts of food. ? Keep a journal and write down what you eat every day. Websites can help with this. ? Avoid drinking alcohol. Drink more water and drinks without calories. ? Take vitamins and dietary pills (supplements ) only as told by your doctor. ? Try going to weight-loss support groups or classes to help lessen stress. Dieticians and counselors may also help. GET HELP RIGHT AWAY IF: ? You have chest pain or tightness. ? You have trouble breathing or feel short of breath. ? You feel weak or have loss of feeling (numbness ) in your legs. ? You feel confused or have trouble talking. ? You have sudden changes in your vision. MAKE SURE YOU: ? Understand these instructions. ? Will watch your condition. ? Will get help right away if you are not doing well or get worse. Document Released: 07/18/2012 Document Reviewed: 07/18/2012 ExitCare? Patient Information ?2013 [employer]. [facility] Urology Office/Clinic Noteon 03-25-2020 Urology Office/Clinic Note Chief Complaint cysto/ud This patient is a 39-year-old female with a history of urgency and urgency incontinence. Symptoms have become more severe and she was referred by Dr. Etienne for evaluation and management. Initial evaluation showed a PVR of 271 cc. HPI Staff cysto/UD. Scope #3 used. History of Present Illness I have reviewed the previous health record information and history for this patient from Dr. Nguyen I have reviewed and verified the staff HPI to be accurate for this encounter. Physical Exam Vitals & Measurements HR: 95(Peripheral) RR: 16 BP: 122/83 HT: 160 cm HT: 160.0 cm Procedure Operative Information Anesthesia Type: Local Procedure: Local Cystoscopy with Urethral Dilation Complications: None Surgical risks, benefits, details of the procedure have been explained to the patient. Full informed consent has been obtained. Intraoperative Information Prepped: Patient is brought back to the endoscopy suite. Patient is placed in modified dorso/lithotomy position. Patient prepped in the usual fashion with Betadine solution. 2% Xylocaine Jelly is placed per Urethra. After waiting several minutes, the Cystoscope is introduced. The Urethra is: Tight there was moderate mucosal prolapse. No urethral or periurethral masses were noted. The Bladder: Normal, Trabeculated: None (0) The Ureteral orifices: Show efflux of clear urine The Urethra was dilated to: 28 Spanish with sounds. Urethral dilation was uneventful. Removal: Cystoscope is removed. The patient tolerated it well. Postoperative Information Patient is discharged home with antibiotic coverage. Follow up arranged. Assessment/Plan 1. Incomplete bladder emptying (R33.9: Retention of urine, unspecified) Patient come in for cysto/ud. She has a long history of not being able to completely empty her bladder therefore urge and incontinence exist. Patient tolerated procedure well. 2. Urge incontinence (N39.41: Urge incontinence) 3. BMI 37.0-37.9, adult (Z68.37: Body mass index [BMI] 37.0-37.9, adult) The standard range for ages 18 and older is >=18.5 and < 25 kg/m2. Your BMI today was above this range, this falls in the overweight to obese category and there are medical benefits to weight loss. We can offer counselling, referral, and/or medical support in addressing this problem. Your BMI and weight management will be followed at subsequent visits. Follow-up With When Contact Information Patrick Hyatt MD, Yemi Yee In 4 weeks [address], [place] [address]- Additional Instructions: Patient Education Obesity, Wwqt-xe-Hcms Obesity, Waqi-ns-Ivws IRossy, personally scribed for Dr. Nguyen on 03/25/2020 13:56:34. . Documentation recorded by the scribe, Rossy Aranda, accurately reflects the services(s) I performed and decisions made by me. Authenticated by Dr. Nguyen on 03/25/2020 13:58:41. Problem List/Past Medical History Ongoing BMI 37.0-37.9, adult Chronic headaches Chronic sinusitis Depression Deviated nasal septum Epilepsy Flank pain Incomplete bladder emptying Urge incontinence Urgency of urination Historical No qualifying data Procedure/Surgical History Cystourethroscopy with dilation of urethral stricture (03/25/2020), septoplasty image guided (03/14/2015), bilateral frontal sinus exploration (03/02/2013), bilateral maxillary antrostomy (03/02/2013), bilateral sphenoidotomy with image guidance (03/02/2013), bilateral total ethmoidectomy (03/02/2013), Hysterectomy, TEMPORAL LOBE SURGERY, Tubal ligation. Medications cyanocobalamin 250 mcg oral tablet, 250 mcg= 1 tab(s), Oral, Daily Cymbalta 30 mg Cap-DR, 1 cap(s), Oral, BID Flonase 0.05 mg/inh Hardin, 2 spray(s), Nasal, BID Flovent HFA 220 Inhaler, 2 puff(s), Inhalation, BID, PRN Lamictal 100 mg Tab, 100 mg= 1 tab(s), Oral, BID metformin 500 mg ER Tab, Oral, Daily Nexium 40 mg Cap-EC, 1 tab, Oral, Daily, PRN Symbicort 80/4.5 inhalation aerosol with adapter, 2 puff(s), Inhalation, BID traZODONE 100 mg Tab, Oral, BID Allergies penicillin (Trouble breathing) Social History Alcohol - Denies Alcohol Use, 02/20/2013 Substance Abuse - Denies Substance Abuse, 02/20/2013 Tobacco - Denies Tobacco Use, 02/20/2013 Never (less than 100 in lifetime) Tobacco Use:. Never Smokeless Tobacco Use:., 03/05/2020 Family History Asthma: Mother. Diabetes mellitus: Grandparent. Hypertension: Father. Primary malignant neoplasm of lung: Grandparent. Diagnostic Results Cystoscopy was benign. There was urethral stenosis and this was dilated without complication. Normal [facility] Comment on above: Result Comment: Elec tronically Signed By: Patrick Hyatt MD, Yemi Yee\.br\Date and Time Signed: 03/25/20 13:58 EST\.br\Electronically Co-Signed By: Rossy Aranda MA\.br\Date and Time Co-Signed: 03/25/20 13:56 EST Formson 03-06-2020 Forms [id number] 03 [id number] CD:127 Normal [facility] Ambulatory Clinical Summaryo n 03-05-2020 Ambulatory Clinical Summary {[id number] Normal [facility] Patient Educationon 03-05-20 20 Patient Education Family Medicine Overactive Bladder, Adult The bladder has two functions that are totally opposite of the other. One is to relax and stretch out so it can store urine (fills like a balloon), and the other is to contract and squeeze down so that it can empty the urine that it has stored. Proper functioning of the bladder is a complex mixing of these two functions. The filling and emptying of the bladder can be influenced by: ? The bladder. ? The spinal cord. ? The brain. ? The nerves going to the bladder. ? Other organs that are closely related to the bladder such as prostate in males and the vagina in females. As your bladder fills with urine, nerve signals are sent from the bladder to the brain to tell you that you may need to urinate. Normal urination requires that the bladder squeeze down with sufficient strength to empty the bladder, but this also requires that the bladder squeeze down sufficiently long to finish the job. In addition the sphincter muscles, which normally keep you from leaking urine, must also relax so that the urine can pass. Coordination between the bladder muscle squeezing down and the sphincter muscles relaxing is required to make everything happen normally. With an overactive bladder sometimes the muscles of the bladder contract unexpectedly and involuntarily and this causes an urgent need to urinate. The normal response is to try to hold urine in by garret the sphincter muscles. Sometimes the bladder contracts so strongly that the sphincter muscles cannot stop the urine from passing out and incontinence occurs. This kind of incontinence is called urge incontinence. Having an overactive bladder can be embarrassing and awkward. It can keep you from living life the way you want to. Many people think it is just something you have to put up with as you grow older or have certain health conditions. In fact, there are treatments that can help make your life easier and more pleasant. CAUSES Many things can cause an overactive bladder. Possibilities include: ? Urinary tract infection or infection of nearby tissues such as the prostate. ? Prostate enlargement. ? In women, multiple pregnancies or surgery on the uterus or urethra. ? Bladder stones, inflammation or tumors. ? Caffeine. ? Alcohol. ? Medications. For example, diuretics (drugs that help the body get rid of extra fluid) increase urine production. Some other medicines must be taken with lots of fluids. ? Muscle or nerve weakness. This might be the result of a spinal cord injury, a stroke, multiple sclerosis or Parkinson's disease. ? Diabetes can cause a high urine volume which fills the bladder so quickly that the normal urge to urinate is triggered very strongly. SYMPTOMS ? Loss of bladder control. You feel the need to urinate and cannot make your body wait. ? Sudden, strong urges to urinate. ? Urinating 8 or more times a day. ? Waking up to urinate two or more times a night. DIAGNOSIS To decide if you have overactive bladder, your healthcare provider will probably: ? Ask about symptoms you have noticed. ? Ask about your overall health. This will include questions about any medications you are taking. ? Do a physical examination. This will help determine if there are obvious blockages or other problems. ? Order some tests. These might include: ? A blood test to check for diabetes or other health issues that could be contributing to the problem. ? Urine testing. This could measure the flow of urine and the pressure on the bladder. ? A test of your neurological system (the brain, spinal cord and nerves). This is the system that senses the need to urinate. Some of these tests are called flow tests, bladder pressure tests and electrical measurements of the sphincter muscle. ? A bladder test to check whether it is emptying completely when you urinate. ? Cytoscopy. This test uses a thin tube with a tiny camera on it. It offers a look inside your urethra and bladder to see if there are problems. ? Imaging tests. You might be given a contrast dye and then asked to urinate. X-rays are taken to see how your bladder is working. TREATMENT An overactive bladder can be treated in many ways. The treatment will depend on the cause. Whether you have a mild or severe case also makes a difference. Often, treatment can be given in your healthcare provider's office or clinic. Be sure to discuss the different options with your caregiver. They include: ? Behavioral treatments. These do not involve medication or surgery: ? Bladder training. For this, you would follow a schedule to urinate at regular intervals. This helps you learn to control the urge to urinate. At first, you might be asked to wait a few minutes after feeling the urge. In time, you should be able to schedule bathroom visits an hour or more apart. ? Kegel exercises. These exercises strengthen the pelvic floor muscles, which support the bladder. By toning these muscles, they can help control urination, even if the bladder muscles are overactive. A specialist will teach you how to do these exercises correctly. They will require daily practice. ? Weight loss. If you are obese or overweight, losing weight might stop your bladder from being overactive. Talk to your healthcare provider about how many pounds you should lose. Also ask if there is a specific program or method that would work best for you. ? Diet change. This might be suggested if constipation is making your overactive bladder worse. Your healthcare provider or a tutor coordinator can explain ways to change what you eat to ease constipation. Other people might need to take in less caffeine or alcohol. Sometimes drinking fewer fluids is needed, too. ? Protection. This is not an actual treatment. But, you could wear special pads to take care of any leakage while you wait for other treatments to take effect. This will help you avoid embarrassment. ? Physical treatments. ? Electrical stimulation. Electrodes will send gentle pulses to the nerves or muscles that help control the bladder. The goal is to strengthen them. Sometimes this is done with the electrodes outside of the body. Or, they might be placed inside the body (implanted ). This treatment can take several months to have an effect. ? Medications. These are usually used along with other treatments. Several medicines are available. Some are injected into the muscles involved in urination. Others come in pill form. Medications sometimes prescribed include: ? Anticholinergics. These drugs block the signals that the nerves deliver to the bladder. This keeps it from releasing urine at the wrong time. Researchers think the drugs might help in other ways, too. ? Imipramine. This is an antidepressant. But, it relaxes bladder muscles. ? Botox. This is still experimental. Some people believe that injecting it into the bladder muscles will relax them so they work more normally. It has also been injected into the sphincter muscle when the sphincter muscle does not open properly. This is a temporary fix, however. Also, it might make matters worse, especially in older people. ? Surgery. ? A device might be implanted to help manage your nerves. It works on the nerves that signal when you need to urinate. ? Surgery is sometimes needed with electrical stimulation. If the electrodes are implanted, this is done through surgery. ? Sometimes repairs need to be made through surgery. For example, the size of the bladder can be changed. This is usually done in severe cases only. HOME CARE INSTRUCTIONS ? Take any medications your healthcare provider prescribed or suggested. Follow the directions carefully. ? Practice any lifestyle changes that are recommended. These might include: ? Drinking less fluid or drinking at different times of the day. If you need to urinate often during the night, for example, you may need to stop drinking fluids early in the evening. ? Cutting down on caffeine or alcohol. They can both make an overactive bladder worse. Caffeine is found in coffee, tea and sodas. ? Doing Kegel exercises to strengthen muscles. ? Losing weight, if that is recommended. ? Eating a healthy and balanced diet. This will help you avoid constipation. ? Keep a journal or a log. You might be asked to record how much you drink and when, and also when you feel the need to urinate. ? Learn how to care for implants or other devices, such as pessaries. SEEK MEDICAL CARE IF: ? Your overactive bladder gets worse. ? You feel increased pain or irritation when you urinate. ? You notice blood in your urine. ? You have questions about any medications or devices that your healthcare provider recommended. ? You notice blood, pus or swelling at the site of any test or treatment procedure. ? You have an oral temperature above 102? F (38.9? C). SEEK IMMEDIATE MEDICAL CARE IF: You have an oral temperature above 102? F (38.9? C), not controlled by medicine. Document Released: 02/20/2010 Document Revised: 07/18/2012 Document Reviewed: 02/20/2010 ExitCare? Patient Information ?2013 [employer]. [facility] Urology Office/Clinic Noteon 03-05-2020 Urology Office/Clinic Note Chief Complaint New pt referred by Dr Etienne for urgency and incontinence This patient is a 39-year-old female referred for evaluation of urinary frequency urgency and some urgency incontinence. Her symptoms are becoming more severe. She is here today for urologic consultation. HPI Staff New pt referred by Dr. Etienne for urgency and incontinence. PVR today - 271ml. Pain with urination:Pt denies pain or burning. Blood in urine:Pt denies Incomplete bladder emptying:Pt states kind of but sometimes she feels like she has to still go. Frequency:Pt denies Urgency:Pt states that sometimes she has to stop and cross her legs. Nocturia:Pt denies Hesitancy:Pt denies Urination requires straining:Pt denies Stream:Pt denies Stream starts and stops:t denies Leaking before getting to the restroom:Pt states occasionally Urinary incontinence without sensory awareness:Pt denies Temporarily unable to restrain urination with body movement:Pt denies Wearing pad/Depends:Pt denies Urine odor:Pt denies Flank/Back pain:Pt states that she has lower back pain that spreads to the hip area. Abdominal pain:Pt denies History of Present Illness Reviewed [employer] and [employer] paper works. There have been no associated fever, chills, or blood in the urine. Pt. denies any pain/burning with urination at this time. Review of Systems ROS - Provider Constitutional: denies weight loss, denies hot flashes. Eyes: denies eye problems. Gastrointestinal: denies nausea, denies vomiting. Cardiovascular: denies chest pain or angina. Integumentary: no dryness Musculoskeletal: denies musculoskeletal symptoms. ENMT: denies otolaryngeal symptoms. Respiratory: no shortness of breath. Heme/Lymph: denies easy bleeding tendency, denies easy bruising tendency. Psychiatric: no confusion, no anxiety. Genitourinary: denies vaginal discharge, moderate incontinence, denies dysuria, denies hematuria, denies urinary frequency, denies amenorrhea, denies menorrhagia, denies abnormal bleeding, denies pelvic pain, denies genital sores, and denies decreased libido. Physical Exam Vitals & Measurements HR: 95(Peripheral) RR: 16 BP: 108/75 HT: 160.0 cm HT: 160 cm WT: 96.0 kg WT: 96.0 kg BMI: 37.5 General Appearance: alert , no acute distress, well nourished, well developed female. Head: normocephalic . Eyes: normal orbit and globe. ENMT: normal examination of external ears. Chest: Lungs CTA, respirations non labored . Cardiovascular: regular rate and rhythm. Abdomen: soft, non distended, no tenderness, no mass or organomegaly, no hernia. Genitourinary: bladder nonpalpable, no flank tenderness. Lymph Nodes: unremarkable palpation of the cervical area. Skin: warm, dry, no bruising. Psychiatric: cooperative, affect appropriate for age, normal judgement, euthymic mood. Assessment/Plan This patient is being scheduled for cystoscopy and dilation of the urethra. Further urologic work-up will be performed depending on the results of this procedure. Urinalysis today showed no infection. 1. Incomplete bladder emptying (R33.9: Retention of urine, unspecified) PVR today - 271ml. Will schedule Cysto with UD. The procedure risks, benefits, details, and treatment alternatives have been discussed with the patient. These include bleeding, infection, recurrent scar in over 50%, need for repeat dilation or other procedures, no symptom relief with dilation, among others. Full informed consent has been obtained. Will order Local anesthesia. [facility] [place]. Ordered: Urology Procedure Order 2. Urge incontinence (N39.41: Urge incontinence) Moderate. Ordered: Urology Procedure Order 3. Flank pain (R10.9: Unspecified abdominal pain) Lower back pain that spreads to the hip area. Ordered: Urology Procedure Order Orders: ciprofloxacin, 500 mg = 1 tab(s), Oral, Daily, Take 1 one day prio to procedure and 1 after procedure is completed, X 2 day(s), # 2 tab(s), Refills(s) 0, Pharmacy: [id number], 160, cm, 03/05/20 10:44:00 EDT, Height/Length Dosing, 96, kg, 03/05/20 10:43:00... Urnls Dip Stick Auto w/o Microscopy POC 43532 Urnls Dip Stick Auto w/o Microscopy POC 34385 I have reviewed the previous health record information and history for this pt. from Dr. Nguyen. Follow-up With When Contact Information Patrick Hyatt MD, Yemi [address] Additional Instructions: Patient Education Overactive Bladder, Adult I, Erna Barron , personally scribed for Dr. Nguyen on 03/05/2020 11:12:49. . Documentation recorded by the scribe, Erna Barron, accurately reflects the services(s) I performed and decisions made by me. Authenticated by Dr. Nguyen on 03/05/2020 12:21:07. Problem List/Past Medical History Ongoing Chronic headaches Chronic sinusitis Depression Deviated nasal septum Epilepsy Flank pain Incomplete bladder emptying Urge incontinence Urgency of urination Historical No qualifying data Procedure/Surgical History septoplasty image guided (03/14/2015), bilateral frontal sinus exploration (03/02/2013), bilateral maxillary antrostomy (03/02/2013), bilateral sphenoidotomy with image guidance (03/02/2013), bilateral total ethmoidectomy (03/02/2013), Hysterectomy, TEMPORAL LOBE SURGERY, Tubal ligation. Medications cyanocobalamin 250 mcg oral tablet, 250 mcg= 1 tab(s), Oral, Daily Cymbalta 30 mg Cap-DR, 1 cap(s), Oral, BID Flonase 0.05 mg/inh Hardin, 2 spray(s), Nasal, BID Flovent HFA 220 Inhaler, 2 puff(s), Inhalation, BID, PRN Lamictal 100 mg Tab, 100 mg= 1 tab(s), Oral, BID metformin 500 mg ER Tab, Oral, Daily Nexium 40 mg Cap-EC, 1 tab, Oral, Daily, PRN Symbicort 80/4.5 inhalation aerosol with adapter, 2 puff(s), Inhalation, BID traZODONE 100 mg Tab, Oral, BID Allergies penicillin (Trouble breathing) Social History Alcohol - Denies Alcohol Use, 02/20/2013 Substance Abuse - Denies Substance Abuse, 02/20/2013 Tobacco - Denies Tobacco Use, 02/20/2013 Never (less than 100 in lifetime) Tobacco Use:. Never Smokeless Tobacco Use:., 03/05/2020 Family History Asthma: Mother. Diabetes mellitus: Grandparent. Hypertension: Father. Primary malignant neoplasm of lung: Grandparent. Lab Results Ambulatory Point of Care Results Bilirubin Urine Dipstick: Negative (03/05/20 10:44:00) Blood Urine Dipstick: Negative (03/05/20 10:44:00) Glucose Urine Dipstick: Negative (03/05/20 10:44:00) Ketones Urine Dipstick: Negative (03/05/20 10:44:00) Leukocytes Urine Dipstick: Negative (03/05/20 10:44:00) Nitrite Urine Dipstick: Negative (03/05/20 10:44:00) Protein Urine Dipstick: Trace (03/05/20 10:44:00) Specific [place] Urine Dipstick: 1.020 (03/05/20 10:44:00) Urine Appearance Urine Dipstick: Cloudy (03/05/20 10:44:00) Urine Color Urine Dipstick: Yellow (03/05/20 10:44:00) Urobilinogen Urine Dipstick: Normal 0.2-1 EU/dl (03/05/20 10:44:00) pH Urine Dipstick: 7.5 (03/05/20 10:44:00) Diagnostic Results Reviewed urinalysis showing no evidence of infection. Reviewed the note from Dr. Etienne. PVR today was 271 cc. Normal [facility] Comment on above: Result Comment: Elec tronically Signed By: Patrick Hyatt MD, Yemi Yee\.br\Date and Time Signed: 03/05/20 12:21 EDT\.br\Electronically Co-Signed By: Erna Barron MA\.br\Date and Time Co-Signed: 03/05/20 11:13 EDT CNPNon 09-06-2018 CNPN Telephone ([id number]) JANIE BURNETT ([id number]) 1980 F Date Time Provider Department 09/06/18 RAMIREZ FOOTE [id number] During your visit today, we recorded the following information about you: Ghazal Mitchell [facility] 09/06/2018 4:03 PM Signed General call : Full name of person calling: Janie Burnett Relationship to patient: Self Phone # : [phone] Reason for call: Please refax letter to excuse her for jury duty. They didn't receive first notice and they're giving her notice that she should attend tomorrow morning. Faxed to . Patient of Dr. Pati Lilly RN, RN 09/06/2018 4:18 PM Signed Spoke with patient and she advises that she did speak with the court. They were able to locate original signed letter. No further action needed from this office. Cathleen Lilly RN Allergies As of Date: 09/06/2018 (No Known Allergies) Date Reviewed: 05/20/2017 Reviewed by: Gabby Mahoney Ma - Fully Assessed Reason for Visit: General [Other] Cmt: See Encounter 08/05/18, resend letter Reason For Visit History Recorded Prescriptions as of 09/06/2018 Sig: CITALOPRAM 20 MG TABLET Take 0.5 tablets by mouth onc* LAMOTRIGINE 100 MG TABLET Take 2 tablets by mouth twice* NEXIUM 40 MG CAPSULE,DELAYED * Take one(1) capsule daily as * Problem List As Of Date 09/06/2018 Noted Resolved Unspecified epilepsy without mention of intract*INVALID FOR*03/20/2011 Depression [F32.9] INVALID FOR* Partial epilepsy secondarily generalized [IMO00*INVALID FOR* Encounter Status:Closed by GHAZAL JOLLEY on 09/06/18 [facility] Encounters Encounter Date Encounter Type Care Provider Facility Start: 04-28-2023 End: 04-29-2023 ambulatory Michael Dozier MD Facility:[facility] Start: 04-19-2023 End: 04-19-2023 ambulatory JACQUIE RAMIREZ Not Available Start: 03-31-2023 End: 04-01-2023 ambulatory Michael Dozier MD Facility:[facility] Start: 03-04-2023 End: 03-05-2023 ambulatory Michael Dozier MD Facility:[facility] Start: 02-01-2023 End: 02-02-2023 ambulatory Michael Dozier MD Facility:[facility] Start: 01-18-2023 ambulatory Ross Vanegas acility:[facility] Start: 01-04-2023 End: 01-05-2023 ambulatory Michael Dozier MD Facility:[facility] Start: 12-02-2022 End: 12-03-2022 ambulatory Michael Dozier MD Facility:[facility] Start: 11-03-2022 End: 11-04-2022 ambulatory Michael Dozier MD Facility:[facility] Start: 10-06-2022 End: 10-07-2022 ambulatory Michael Dozier MD Facility:[facility] Start: 09-10-2022 End: 09-11-2022 ambulatory Michael Dozier MD Facility:[facility] Start: 09-07-2022 End: 09-08-2022 ambulatory Michael Dozier MD Facility:[facility] Start: 08-05-2022 ambulatory Michael Dozier MD Facility:[facility] Start: 07-08-2022 End: 07-09-2022 ambulatory Michael Dozier MD Facility:[facility] Start: 06-10-2022 End: 06-11-2022 ambulatory Michael Dozier MD Facility:[facility] Start: 06-02-2022 End: 06-03-2022 ambulatory Michael Dozier MD Facility:[facility] Start: 05-12-2022 ambulatory MEREDITH TATUM Facilit y:[facility] Start: 05-05-2022 End: 05-06-2022 ambulatory Michael Dozier MD Facility:[facility] Start: 04-30-2022 End: 05-01-[address] KACIE ETIENNE Facility:[facility] Start: 04-20-2022 End: 04-21-2022 ambulatory MEREDITH WINN Facility:[facility] Start: 04-13-2022 End: 04-13-[address] KACIE ETIENNE Facility:[facility] Payers Date Payer Category Payer Self-pay 2021 Unknown [id number] 2020 Unknown 1980 Unknown [id number] .16.84 [id number] 1979 Unknown [id number] .16.84 0.1.472512.3.579.2.593 1979 Unknown [id number] .16.84 0.1.320116.3.579.2.593 1979 Unknown [id number] .16.84 0.1.983651.3.579.2.593 1979 Unknown [id number] 2.840 .1.781383.3.579.2.1259 1979 Unknown [id number] . 840.1.325903.3.579.2.196 1979 Unknown [id number] . 840.1.703878.3.579.2.196 1979 Unknown [id number] . 840.1.886046.3.579.2.196 1979 Unknown [id number] . 840.1.298446.3.579.2.196 1979 Unknown [id number] 2.16 840.1.576866.3.579.2.196 1979 Unknown [id number] 2.16 840.1.251158.3.579.2.196 1979 Unknown [id number] 2.16 840.1.605568.3.579.2.196 1979 Unknown [id number] 2.16 840.1.055125.3.579.2. 1979 Unknown [id number] 2.16 840.1.142322.3.579.2.196 1979 Unknown [id number] 2. 840.1.310609.3.579.2. 1979 Unknown [id number] 2. 840.1.296024.3.579.2. 1979 Unknown [id number] 2. 840.1.373222.3.579.2. 1979 Unknown [id number] 2. 840.1.418010.3.579.2.196 1979 Unknown [id number] 2. 840.1.326823.3.579.2. 1979 Unknown [id number] 2. 840.1.284229.3.579.2.196 1979 Unknown [id number] 2. 840.1.921279.3.579.2. 1979 Unknown [id number] 2.16 840.1.348956.3.579.2.196 1979 Unknown [id number] 2.16 840.1.839688.3.579.2. 1979 Unknown [id number] 2.16 840.1.838555.3.579.2. 1979 Unknown [id number] 2.16 840.1.116804.3.579.2.196 Summary Purpose Family History No Family History Records FoundNo Family History Records FoundNo Family History Records FoundNo Family History Records FoundNo Family History Records FoundNo Family History Records Found Advance Directives No Advanced Directives Records FoundNo Advanced Directives Records FoundNo Advanced Directives Records FoundNo Advanced Directives Records FoundNo Advanced Directives Records FoundNo Advanced Directives Records Found Additional Source Comments INFORMATION SOURCE (unrecogn ized section and content) DATE CREATED AUTHOR 09/11/2018 [facility] DATE CREATED AUTHOR AUTHOR'S ORGANIZ ATION 07/31/2020 [facility]ier Trigg [facility] DATE CREATED AUTHOR AUTHOR'S ORGANIZ ATION 05/12/2022 [facility] DATE CREATED AUTHOR AUTHOR'S ORGANIZ ATION 04/20/2023 [facility] DATE CREATED AUTHOR AUTHOR'S ORGANIZ ATION 04/25/2023 [facility] DATE CREATED AUTHOR AUTHOR'S ORGANIZ ATION 04/29/2023 [facility] FOR RECORDS PERTAINING TO PATIENTS WHO ARE OR HAVE BEEN ENROLLED IN A CHEMICAL DEPENDENCY/SUBSTANCEABUSE PROGRAM, SOME INFORMATION MAY BE OMITTED. This clinical summary was aggregated from multiple sources. Caution should be exercised in using it in the provision of clinical care. This summary normalizes information from multiple sources, and as a consequence, information in this document may materially change the coding, format and clinical context of patient data. In addition, data may be omitted in some cases. CLINICAL DECISIONS SHOULD BE BASED ON THE PRIMARY CLINICAL RECORDS. [facility]. provides no warranty or guarantee of the accuracy or completeness of information in this document.
--- NOTE | 2023-05-06 11:22 | MM_ITS ---
Patient Name: REGINALD BURNETT MR#: [id number] : 1980 Exam Date: 05/06/2023 Ordering Doctor: GE Loredo . RADIOLOGY REPORT PROCEDURE: MM TOMOSYNTHESIS SCREENING BI COMPARISON: MG MAMM SCREEN 3D ANTONIO CAD, 04/30/2022. INDICATIONS: screening Calculator Name NCI Breast Cancer Risk Assessment Tool 5 Year Breast Cancer Risk 0.80% Lifetime Breast Cancer Risk 10.80% Personal Breast Cancer No Personal Ovarian Cancer No Treatments None Family Cancers None LOCATION: [facility] BREAST COMPOSITION: Scattered areas fibroglandular density. FINDINGS: DIAGNOSTIC CATEGORY 2--BENIGN FINDING: RIGHT BREAST: No significant suspicious finding. Stable asymmetries mid upper central breast. No significant change has occurred. LEFT BREAST: No significant suspicious finding. No significant change has occurred. RECOMMENDATIONS: ROUTINE MAMMOGRAM AND CLINICAL EVALUATION IN 12 MONTHS. PLEASE NOTE: A NORMAL MAMMOGRAM DOES NOT EXCLUDE THE POSSIBILITY OF BREAST CANCER. A CLINICALLY SUSPICIOUS PALPABLE LUMP SHOULD BE BIOPSIED. Dictated by: Jason Hagan M.D. on 05/06/2023 at 13:14 Approved by: Jason Hagan M.D. on 05/06/2023 at 13:21
== END 2023-05-06 11:00 | disposition home or self-care (01) ==
LOC: MAMMO 10:59
PROVIDERS: Family Provider Family Medicine; Visit Provider Physician Assistant
DX: Z12.31 Encounter for screening mammogram for malignant neoplasm of breast (principal)
CPT/HCPCS: 77063; 77067

== ENCOUNTER 2024-04-24 21:54 | Outpatient (REF) | payer OTHER, SELFPAY ==
--- OUTSIDE RECORDS SUMMARY | 2024-04-24 21:57 | XMS_ITS | CCD ---
Author Organization [facility] CliniSysc Care Team Providers Care Wall Cleaner Name Role Phone BERENICE, DR HESTER Admitting Unavailable BERENICE, DR HESTER Attending Unavailable BERENICE, DR HESTER Primary Care Unavailable BERENICE, DR HESTER Consulting Unavailable RUMSCHLAG, NAHOMY Admitting Unavailable RUMSCHLAG, NAHOMY Attending Unavailable BERENICE, DR HESTER Primary Care Unavailable POLICAROMARY LOU Consulting Unavailable RUMSCHLAG, NAHOMY Consulting Unavailable RUMSCHLAG, NAHOMY Admitting Unavailable RUMNAHOMY CONNELLY Attending Unavailable BERENICE, DR HESTER Primary Care Unavailable RUMSCHLAG, NAHOMY Consulting Unavailable BERENICE, DR HESTER Admitting Unavailable BERENICE, DR HESTER Attending Unavailable BERENICE, DR HESTER Primary Care Unavailable BERENICE, DR HESTER Consulting Unavailable ZIEBER, DR MARILU Serna Consulting Unavailable JACQUIE RAMIREZ Attending Unavailable Rumschlag DO, Nahomy K Primary Care Provider [phone] Sulma Braga Unavailable Enoch Nguyen Unavailable DO Nahomy Winn Primary Care Provider DO Enoch Nguyen Attending Provider [phone] PUSHPA Rolon Attending Provider RUMSCHLAG, NAHOMY K Primary Care Unavailable ALAN CAREY Attending Unavailable ALAN CAREY Attending Unavailable ALAN CAREY Referring Unavailable RUMSCHLAG, NAHOMY K Primary Care Unavailable TOMAS RODRIGUEZ Referring Unavailable RUMSCHLAG, NAHOMY K Primary Care Unavailable SHARLA BIRCH Referring Unavailable RUMSCHLAG, NAHOMY K Primary Care Unavailable HOLGER LE Referring Unavailable RUMSCHLAG, NAHOMY K Primary Care Unavailable EVANS, REGGIE N Referring Unavaila ble EVANS, REGGIE N Primary Care Unavaila ble TOMAS RODRIGUEZ Attending Unavailable RUMSCHLAG, NAHOMY K Referring Unavailable RUMSCHLAG, NAHOMY K Primary Care Unavailable RUMSCHLAG, NAHOMY K Primary Care Unavailable RUMSCHLAG, NAHOMY K Referring Unavailable RUMSCHLAG, NAHOMY K Primary Care Unavailable SHARLA BIRCH N Attending Unavailable TANK, VISHAL Attending Unavailable RUMSCHLAG, NAHOMY K Referring Unavailable RUMSCHLAG, NAHOMY K Primary Care Unavailable RAHELDANIE R Referring Unavailable RUMSCHLAG, NAHOMY K Primary Care Unavailable TANK, VISHAL Attending Unavailable RUMSCHLAG, NAHOMY K Referring Unavailable RUMSCHLAG, NAHOMY K Primary Care Unavailable HORTENCIA CAMARA Referring Unavailable EVANS, REGGIE N Primary Care Unavaila ble TANK, VISHAL Attending Unavailable RUMSCHLAG, NAHOMY K Referring Unavailable EVANS, REGGIE N Primary Care Unavaila ble TANK, VISHAL Referring Unavailable RUMSCHLAG, NAHOMY K Primary Care Unavailable TANK, VISHAL Attending Unavailable RUMSCHLAG, NAHOMY K Referring Unavailable RUMSCHLAG, NAHOMY K Primary Care Unavailable Rumschlag, DO Nahomy Primary Care Provider MD Ross Ureña Attending Provider [phone] Rumschlag, Nahomy Primary Care Unavailable Margarita Rolon Admitting Unavailable Margarita Rolon Attending Unavailable Enoch Nguyen Admitting Unavailable Enoch Nguyen Attending Unavailable Rumschlag, Nahomy Primary Care Unavailable Ross Ureña Admitting Unavailab le Ross Ureña Attending Unavailab le Rumschlag DO, Nahomy Vicente Primary Care Unavail able Xenia LONDONO, Lucie Hinson Attending Unavail able Adonis Dozier MD, [facility] Primary Care Unavail able Xenia LONDONO, Lucie Hinson Attending Unavail able Adonis Dozier MD, Michael Primary Care Unavail able Xenia LONDONO, Lucie Hinson Attending Unavail able Rumschlag DO, Nahomy Vicente Primary Care Unavail able Xenia LONDONO, Lucie Hinson Attending Unavail able Rumschlag DO, Nahomy Vicente Primary Care Unavail able Xenia LONDONO, Lucie Hinson Attending Unavail able Rumschlag DO, Nahomy Vicente Primary Care Unavail able Xenia LONDONO, Lucie Hinson Attending Unavail able Gianluca SMOKE ROOM OPERATOR-SCOOP OPERATOR, Lima Zaragoza Attending U navailable Rumschlag DO, Nahomy Vicente Primary Care Unavail able Gianluca SMOKE ROOM OPERATOR-SCOOP OPERATOR, Lima Zaragoza Attending U navailable Rumschlag DO, Nahomy Vicente Primary Care Unavail able Rumschlag DO, Nahomy Vicente Primary Care Unavail able Xenia LONDONO, Lucie Hinson Attending Unavail able Rumschlag DO, Nahomy Vicente Primary Care Unavail able Xenia LONDONO, Lucie Hinson Attending Unavail able Xenia LONDONO, Lucie Hinson Attending Unavail able Rumschlag DO, Nahomy Vicente Primary Care Unavail able Rumschlag DO, Nahomy Vicente Primary Care Unavail able Rumschlag DO, Nahomy Vicente Primary Care Unavail able Xenia LONDONO, Lucie Hinson Attending Unavail able Rumschlag DO, Nahomy Vicente Primary Care Unavail able Xenia LONDONO, Lucie Hinson Attending Unavail able Rumschlag DO, Nahomy Vicente Primary Care Unavail able Xenia LONDONO, Lucie Hinson Attending Unavail able Gianluca SMOKE ROOM OPERATOR-SCOOP OPERATOR, Lima Zaragoza Attending U navailable Rumschlag DO, Nahomy Vicente Primary Care Unavail able Rumschlag DO, Nahomy Vicente Primary Care Unavail able Xenia LONDONO, Lucie Hinson Attending Unavail able Allergies Allergy Classification Reported Allergen(s) Allergy Type Date of Onset Reaction(s) Facility (8 sources) dog skin extract; Translations: [DOG EPITHELIUM ALLERGENIC EXTRACT] [facility] ([facility]) Penicillin; Translations: [PENICILLIN] Drug Allergy 1 shortness of breath [facility] (8 sources) Penicillins; Translations: [PENICILLINS] Propensity to adverse reactions to drug 0 Shortness Of Breath [facility] (5 sources) Cat Dander; Translations: [CAT DANDER] Propensity to adverse reactions to drug 4 [facility] (1 source) Penicillins Drug allergy (disorder) 4 [facility] Repository Medications Current Medications Medication Drug Class(es) Dates Sig (Normalized) Sig (Original) acetaminophen 500 mg oral tablet (6 sources) Start: 07-30-2022 take 2 tablets by mouth every eight hours as needed for pain acetaminophen (TYLENOL EXTRA STRENGTH) 500 mg tablet Indications: Closed fracture of left ankle, initial encounter Take 2 tablets (1,000 mg total) by mouth every 8 (eight) hours as needed for pain. 180 tablet 2 07/30/2022 Active [id number] 200 actuat albuterol 0.09 mg/actuat metered dose inhaler (12 sources) beta2-Adrenergic Agonist Start: 06-04-2022 take 2 puff(s) by inhalation every six hours as needed for wheezing albuterol (PROVENTIL HFA;VENTOLIN HFA) 90 mcg/actuation inhaler Indications: Severe persistent asthma without complication Inhale 2 puffs every 6 (six) hours as needed for wheezing. 18 g 6 06/04/2022 Active Start: 08-14-2021 take 3 mL by inhalat ion every six hours as needed for wheezing albuterol (PROVENTIL,VENTOLIN) 2.5 mg /3 mL (0.083 %) nebulizer solution Indications: Severe persistent asthma without complication Inhale 3 mL (2.5 mg total) by nebulization every 6 (six) hours as needed for wheezing. 360 mL 6 08/14/2021 Active ARIPiprazole 10 mg oral tablet (8 sources) Atypical Antipsychotic take 1 tablet by mouth in the morning ARIPiprazole (ABILIFY) 10 mg tablet Take 1 tablet (10 mg total) by mouth in the morning. 0 Active aspirin 81 mg delayed release oral tablet (5 sources) Platelet Aggregation Inhibitor, Nonsteroidal Anti-inflammatory Drug Start: 10-06-19 24 Aspirin (Adult Low Dose Aspirin) 81 mg tablet,delayed release (DR/EC) Active 81 MG PO Daily October 06, 2023 12:00am take 1 tablet by mouth in the mo rning aspirin 81 mg Take 1 tablet (81 mg total) by mouth in the morning. 0 Active azelastine hydrochloride 0.137 mg/actuat metered dose nasal spray (5 sources) Histamine-1 Receptor Antagonist take 1 spray(s) nasal route in the morning azelastine (ASTELIN) 137 mcg (0.1 %) nasal spray Administer 1 spray into each nostril in the morning and 1 spray before bedtime. 0 Active take 1 spray(s) nasal route twic e daily Azelastine HCl 137 MCG/SPRAY USE 1 SPRAY(S) IN EACH NOSTRIL TWICE DAILY Nasal for 50 Days Active baclofen 20 mg oral tablet (6 sources) gamma-Aminobutyric Acid-ergic Agonist Start: 06-26-2022 baclofen (LIORESAL) 20 mg tablet 1 ml benralizumab 30 mg/ml prefilled syringe (2 sources) Interleukin-5 Receptor alpha-directed Cytolytic Antibody Start: 10-06-2023 Benralizumab (Fasenra) 30 mg/mL syringe Active MG SUBCUT October 06, 2023 12:00am biotin 10 mg oral tablet (2 sources) take 1 tablet by mouth every twenty-four hours Biotin 78602 MCG 1 tablet Orally Once a day Active calcium citrate 950 mg oral tablet (6 sources) Start: 07-29-2022 take 2 tablets by mouth three times daily calcium citrate (CALCITRATE) 200 mg (950 mg) tablet Take 2 tablets (400 mg total) by mouth 3 (three) times a day. 90 tablet 0 07/29/2022 Active cetirizine hydrochloride 10 mg oral tablet (10 sources) Histamine-1 Receptor Antagonist Start: 10-06-2023 take 10 mg by mouth once daily Cetirizine Active 10 MG PO Daily October 06, 2023 12:00am Start: 11-17-2020 cetirizine (Zy rTEC) 10 mg tablet Take 1 tablet (10 mg total) by mouth as needed. 0 11/17/2020 Active Cholecalciferol (8 sources) Vitamin D Start: 10-06-2023 take 10 ug by mouth once daily Cholecalciferol (Vitamin D3) Active 10 MCG PO Daily October 06, 2023 12:00am Start: 07-30-2022 take 1 tablet by tricia th in the morning cholecalciferol, vitamin D3, 2,000 units tablet Take 1 tablet (2,000 Units total) by mouth in the morning. 30 tablet 0 07/30/2022 Active citalopram 20 mg oral tablet (10 sources) Serotonin Reuptake Inhibitor Start: 10-06-2023 take 20 mg by mouth once daily Citalopram Active 20 MG PO Daily October 06, 2023 12:00am Start: 11-15-2019 citalopram (Ce Nelson) 20 mg tablet Take 1 tablet (20 mg total) by mouth daily. Can resume once zithromax course complete. 0 11/15/2019 Active clindamycin 150 mg oral capsule (2 sources) Lincosamide Antibacterial Start: 07-01-2023 End: 07-08-2023 take 2 capsules by mouth three times daily clindamycin (CLEOCIN) 150 mg capsule Take 2 capsules (300 mg total) by mouth 3 (three) times a day for 7 days. 42 capsule 0 07/01/2023 07/08/2023 Active diphenhydrAMINE hydrochloride 50 mg oral capsule (6 sources) Histamine-1 Receptor Antagonist Start: 08-12-2022 diphenhydrAMINE (BENADRYL) 50 mg capsule 1 capsule (50 mg total) nightly as needed. 0 08/12/2022 Active [id number] 0.3 ml EPINEPHrine 1 mg/ml auto-injector (3 sources) alpha-Adrenergic Agonist, beta-Adrenergic Agonist, Catecholamine EPINEPHrine (EPIPEN) 0.3 mg/0.3 mL auto-injector 0.3 mL (0.3 mg total) as needed. 0 Active Fluticasone Furoate-Vilanterol (10 sources) Corticosteroid, beta2-Adrenergic Agonist Start: 10-06-2023 Fluticasone Furoate-Vilanterol (Breo Ellipta) 200-25 mcg/dose blister with device Active INHALATION October 06, 2023 12:00am Start: 06-09-2023 take 1 puff(s) by in halation in the morning fluticasone furoate-vilanteroL (BREO ELLIPTA) 200-25 mcg/dose blister with device Indications: Severe persistent asthma without complication Inhale 1 puff in the morning. 60 each 3 06/09/2023 Active Start: 06-04-2022 take 1 puff(s) by in halation in the morning fluticasone furoate-vilanteroL (BREO ELLIPTA) 200-25 mcg/dose blister with device Indications: Severe persistent asthma without complication Inhale 1 puff in the morning. 60 each 12 06/04/2022 Active take 1 puff(s) by in halation once daily Breo Ellipta 200-25 MCG/ACT 1 puff Inhalation Once a day for 30 days Active hydrOXYzine hydrochloride 25 mg oral tablet (5 sources) Antihistamine Start: 07-01-2023 take 1 tablet by mouth every six hours as needed hydrOXYzine (ATARAX) 25 mg tablet Take 1 tablet (25 mg total) by mouth every 6 (six) hours as needed for itching. 30 tablet 0 07/01/2023 Active ibuprofen 800 mg oral tablet (6 sources) Nonsteroidal Anti-inflammatory Drug Start: 07-30-2022 take 1 tablet by mouth three times daily ibuprofen (MOTRIN) 800 mg tablet Indications: Closed fracture of left ankle, initial encounter Take 1 tablet (800 mg total) by mouth 3 (three) times a day. 90 tablet 3 07/30/2022 Active lamoTRIgine 100 mg oral tablet (10 sources) Mood Stabilizer, Anti-epileptic Agent Start: 10-06-2023 take 100 mg by mouth once daily Lamotrigine Active 100 MG PO Daily October 06, 2023 12:00am take 1 tablet by tricia th in the morning, then take 1 tablet by mouth at bedtime lamoTRIgine (LaMICtal) 100 mg tablet Obi e 1 tablet (100 mg total) by mouth in the morning and 1 tablet (100 mg total) before bedtime. 0 Active mepolizumab 100 mg injection (8 sources) Interleukin-5 Antagonist Start: 06-04-2021 inject 1 mL by subcutaneous injection every 30 days NUCALA 100 mg injection Inject 1 mL (100 mg total) under the skin every 30 (thirty) days. 0 06/04/2021 Active Nucala 100 MG/ML 1 mL Subcutaneous Q 4 weeks for 28 days Active mometasone furoate 0.05 mg/actuat metered dose nasal spray (6 sources) Corticosteroid Start: 05-18-2022 take 2 spray(s) nasal route in the morning mometasone (NASONEX) 50 mcg/actuation nasal spray Indications: Chronic nasal congestion Administer 2 sprays into each nostril in the morning. 17 g 12 05/18/2022 Active montelukast 10 mg oral tablet (10 sources) Leukotriene Receptor Antagonist Start: 10-06-2023 take 10 mg by mouth once daily Montelukast Active 10 MG PO Daily October 06, 2023 12:00am Start: 06-04-2022 take 1 tablet by tricia th once daily montelukast (SINGULAIR) 10 mg tablet Indications: Severe persistent asthma without complication Take 1 tablet (10 mg total) by mouth nightly. 60 tablet 12 06/04/2022 Active naproxen 375 mg oral tablet (2 sources) Nonsteroidal Anti-inflammatory Drug Start: 08-09-2023 End: 08-16-2023 take 1 tablet by mouth in the morning, then take 1 tablet by mouth at mealtime naproxen (NAPROSYN) 375 mg tablet Take 1 tablet (375 mg total) by mouth in the morning and 1 tablet (375 mg total) in the evening. Take with meals. Do all this for 7 days. 14 tablet 0 08/09/2023 08/16/2023 Active omeprazole 20 mg delayed release oral capsule (10 sources) Proton Pump Inhibitor Start: 10-06-2023 take 20 mg by mouth once daily Omeprazole Active 20 MG PO Daily October 06, 2023 12:00am Start: 05-22-2022 take 1 tablet by tricia th once daily omeprazole (PriLOSEC OTC) 20 mg tablet,delayed release (DR/EC) TAKE 1 TABLET BY MOUTH ONCE DAILY FOR 90 DAYS 0 05/22/2022 Active take 1 capsule by mo [facility] once daily Omeprazole 20 MG 1 capsule 30 minutes before morning meal Orally Once a day for 90 days Active pantoprazole 40 mg delayed release oral tablet (6 sources) Proton Pump Inhibitor Start: 07-30-2022 take 1 tablet by mouth in the morning pantoprazole (PROTONIX) 40 mg EC tablet Take 1 tablet (40 mg total) by mouth in the morning. 30 tablet 0 07/30/2022 Active traZODone hydrochloride 100 mg oral tablet (10 sources) Serotonin Reuptake Inhibitor Start: 10-06-2023 take 100 mg by mouth once daily at bedtime Trazodone Active 100 MG PO Daily at bedtime October 06, 2023 12:00am take 1 tablet by mouth once luis y traZODone (DESYREL) 50 mg tablet Take 1 tablet (50 mg total) by mouth nightly. 0 Active take 1 tablet by tricia th once daily at bedtime traZODone HCl 100 MG TAKE 1 TABLET BY MOUTH ONCE DAILY AT BEDTIME Oral for 30 Days Active triamcinolone acetonide 1 mg/ml topical cream (2 sources) Corticosteroid Start: 10-06-2023 Triamcinolone Acetonide Active APPLIC TOPICAL October 06, 2023 12:00am turmeric extract 500 mg oral capsule (2 sources) take 500 mg by mouth once daily Turmeric 500 MG as directed Orally daily Active Problems Active Problems Problem Classification Problem Date Documented Date Episodic/Chronic Allergic reactions (1 source) Other atopic dermatitis; Translations: [Other atopic dermatitis] Onset: 07-12-2023 Chronic Asthma (18 sources) Uncomplicated severe persistent asthma; Translations: [Severe persistent asthma, uncomplicated] Onset: 07-12-2020 Resolved: 11-14-2020 11-14-2020 Chronic Diseases of white blood cells (6 sources) Eosinophil count raised; Translations: [Eosinophilia] Onset: 08-14-2021 08-14-2021 Chronic Fracture of lower limb (20 sources) Closed fracture of left ankle; Translations: [Other fracture of left lower leg, initial encounter for closed fracture] Onset: 07-24-2022 07-25-2022 Episodic Fracture of lower limb (13 sources) Closed fracture of second metatarsal bone; Translations: [Displaced fracture of second metatarsal bone, right foot, initial encounter for closed fracture] Onset: 08-09-2023 08-12-2023 Episodic Immunizations and screening for infectious disease (1 source) Encounter for screening for human papillomavirus (HPV); Translations: [ENC SCREENING HUMAN PAPILLOMAVIRUS] Onset: 04-18-2022 Episodic Mood disorders (6 sources) Bipolar I disorder; Translations: [Bipolar disorder, unspecified] Onset: 07-13-2020 07-27-2022 Chronic Other connective tissue disease (4 sources) Pain in right thigh; Translations: [PAIN IN RIGHT THIGH] Onset: 04-20-2022 Episodic Other connective tissue disease (1 source) Pain in lower limb Onset: 07-01-2023 Episodic Other lower respiratory disease (1 source) Wheezing; Translations: [Wheezing] Onset: 09-21-2023 Episodic Other nutritional; endocrine; and metabolic disorders (4 sources) Morbid (severe) obesity due to excess calories; Translations: [Morbid obesity] Chronic Other nutritional; endocrine; and metabolic disorders (1 source) Morbid obesity; Translations: [Morbid (severe) obesity due to excess calories] Chronic Other nutritional; endocrine; and metabolic disorders (3 sources) Body mass index 40+ - severely obese; Translations: [Morbid (severe) obesity due to excess calories] 08-09-2023 Chronic Other screening for suspected conditions (not mental disorders or infectious disease) (8 sources) Encounter for screening mammogram for malignant neoplasm of breast; Translations: [Encounter for screening for malignant neoplasm of cervix] Onset: 04-13-2022 Episodic Other upper respiratory infections (12 sources) Chronic sinusitis; Translations: [Chronic sinusitis, unspecified] Onset: 08-08-2018 Resolved: 11-14-2020 08-08-2018 Chronic Other upper respiratory infections (7 sources) Acute sinusitis; Translations: [Acute sinusitis, unspecified] Onset: 09-16-2020 Resolved: 11-14-2020 11-14-2020 Episodic Residual codes; unclassified (1 source) Personal history of other specified conditions Episodic Skin and subcutaneous tissue infections (1 source) Cellulitis of unspecified part of limb; Translations: [Cellulitis of unspecified part of limb] Onset: 07-01-2023 Episodic Spondylosis; intervertebral disc disorders; other back problems (6 sources) Lumbar spondylosis; Translations: [Spondylosis without myelopathy or radiculopathy, lumbar region] Onset: 02-18-2021 09-08-2021 Chronic Unclassified (1 source) Acute cough; Translations: [Acute cough] Onset: 09-13-2023 Unclassified (2 sources) Foot Injury Onset: 08-09-2023 Unclassified (1 source) Establish Care Onset: 08-12-2023 Past or Other Problems Problem Classification Problem Date Documented Date Episodic/Chronic Administrative/social admission (3 sources) Dietary counseling and surveillance; Translations: [Other specified counseling] Onset: 06-14-2023 Episodic Conditions associated with dizziness or vertigo (2 sources) Dizziness; Translations: [Dizziness and giddiness] Onset: 04-09-2023 05-18-2023 Episodic Mood disorders (6 sources) Mood disorders Onset: 03-23-2023 03-23-2023 Other lower respiratory disease (6 sources) Respiratory distress; Translations: [Acute respiratory distress] Onset: 11-09-2019 Resolved: 11-14-2020 11-14-2020 Episodic Other nervous system disorders (7 sources) H/O: epilepsy; Translations: [Personal history of other diseases of the nervous system and sense organs] Onset: 03-23-2023 05-18-2023 Episodic Other nervous system disorders (1 source) Personal history of other diseases of the nervous system and sense organs; Translations: [Personal history of other diseases of the nervous system and sense organs] Onset: 03-23-2023 Episodic Other upper respiratory disease (6 sources) Nasal congestion; Translations: [Nasal congestion] Onset: 06-30-2017 06-30-2017 Episodic Other upper respiratory disease (6 sources) Polyp of nasal sinus; Translations: [Other polyp of sinus] Onset: 06-30-2017 06-30-2017 Episodic Residual codes; unclassified (6 sources) History of nasal sinus surgery; Translations: [Other specified postprocedural states] Onset: 10-26-2017 10-26-2017 Episodic Spondylosis; intervertebral disc disorders; other back problems (12 sources) Disorder of sacrum; Translations: [Sacrococcygeal disorders, not elsewhere classified] Onset: 10-22-2021 10-28-2021 Episodic Results Test Name Value Interpretation Reference Range Facility Allergy/Immunology Office/Cl inic Noteon 12-15-2023 Allergy/Immunology Office/Clinic Note Chief Complaint PND History of Present Illness Reginald is a 43 year old female being seen in our office for a follow up of allergic rhinitis and asthma. She reports PND and itchy watery eyes. She denies nasal congestion, nasal drainage, sore throat, and nose bleeds. She reports she continues to take Zyrtec on days she is receiving AIT. She reports this is helpful. She continues to receive AIT. She reached dose maintenance on 06/10/2023. She reports itchy , red bump on her arm goes away within 48 hours. She reports she feels these are helpful, and have been helpful for symptoms. She denies the use of any nasal sprays. Asthma She denies cough, wheezing , shortness of breath, sputum production , or waking at night. She continues Fasenra q8 weeks. She feels this has been helpful for her asthma, and feels her asthma is well controlled with the medication. She reports she continues to use Breo inhaler, and reports this medication is helpful. She continues albuterol as needed, reporting she has not needed to use albuterol in about 2 years. She denies any ER/UC visits. She denies any steroids or antibiotics taken since last office visit. She denies any recent sinus or respiratory infections. ACT - 24 Peak Flow - 350 70% - 292 06/24/2023 Assessment/Plan 1. Chronic allergic rhinitis due to fungal spores Chronic nasal and sinus symptoms are well-controlled on current therapies. -Continue allergen avoidance measures -Continue nasal sprays and transition to as needed if tolerated -Continue monthly allergy injections (reached maintenance red 0.5 mL on 06/10/2021) -Notify office if allergy symptoms become uncontrolled Follow-up in [address] Michaels or sooner if needed 3. Severe persistent asthma Chronic respiratory symptoms are well-controlled on current therapies. -Continue Nucala monthly -Continue Breo daily -Continue albuterol as needed for cough, shortness of breath, wheeze -Follow-up with pulmonology as previously planned [1] Physical Exam Vitals & Measurements HR: 84 (Peripheral) BP: 126/84 HT: 168 cm WT: 98.9 kg WT: 98.9 kg (Dosing) BMI: 35.04 Constitutional: The patient is oriented to person, [...] Abdominal: Soft. Bowel sounds are normal. No masses.Musculoskeleta l: Normal range of motion. No visible edema. Neurological: Alert and oriented to person, place, and time. Skin: Skin is warm and dry. No rash noted. Not diaphoretic. No erythema. Psychiatric: Affect normal. Vitals Reviewed Additional Vitals BP Position/Location: Sitting, Left arm Assessment/Plan 1. Chronic allergic rhinitis due to fungal spores Reginald has done well with allergen immunotherapy and is only taking an oral antihistamine as needed for nasal symptoms and Singulair once daily. At this time I would not make any changes and she will continue allergen immunotherapy monthly for the next 2 to 4 years. 2. Severe persistent asthma Reginald has had good symptom control with the Breo, Fasenra, and allergen immunotherapy. She has been on allergen immunotherapy monthly for over a year and we discussed that it would be reasonable to see if she is able to scale back on her Fasenra. She will space out her doses and if symptoms increase then she will go back to every 8 weeks. She should continue her Breo, Singulair, and albuterol as needed. Plan - Taper Fasenra down to 9 weeks, then 10 weeks, then 11 weeks..etc - Continue Breo inhaler - Continue albuterol as needed - Continue Singulair daily - Follow up 4 months Physician Comments This note was created with the aid of [employer] voice recognition software. Every reasonable effort was made to assure accuracy and reliability of this note despite the inaccuracy, inefficiencies, and flaws of any electronic medical record program. There may be typographical errors that remain unaddressed and this in no way reflects on the quality of patient care received in this patient encounter. Problem List/Past Medical History Ongoing Allergic rhinitis (more content not included)... Normal [facility] XR FOOT RT MIN 3 VWSon 10-01 XR FOOT RT MIN 3 VWS XR FOOT RT MIN 3 VW S XR FOOT RT MIN 3 VWS: 09/30/2023 10:22 AM Clinical: Fracture follow-up EXAM: RIGHT FOOT RADIOGRAPHS Comparison: 08/30/2023 Views: 3 Findings: Stable position and alignment of healing fractures of the base of the second, third, and fourth metatarsals with some new bone formation. No new abnormality.. Impression: * Healing fractures second, third, and fourth metatarsals. Finalized by Maurilio Ramos MD on 10/02/2023 11:32 AM Normal [facility] XR CHEST 2 VWSon 09-21-2023 XR CHEST 2 VWS XR CHEST 2 VWS PA and lateral chest: HISTORY: Cough. Upper respiratory infection. 2 views the chest are obtained. Cardiac and mediastinal contours are within normal limits. Lungs are clear. There is no pneumothorax, effusion, or focal consolidation. Osseous structures appear intact. IMPRESSION: No acute findings. Finalized by Soy Frederick MD on 09/21/2023 1:55 PM Normal [facility] SARS/FLU A+B[facility]RSV [facility] SARS/FLU A+B/RSV by NAAT/Molecular FLU A PCR Negative (qualifier value) FLU B PCR Negative (qualifier value) RSV by PCR Negative (qualifier value) SARS CoV 2 Not detected (qualifier value) NOTE The Xpert Xpress SARS-CoV-2/Flu/RSV Plus test is a rapid, multiplexed real-time RT-PCR test intended for the simultaneous qualitative detection and differentiation of SARS-CoV-2, influenza A, influenza B and respiratory syncytial virus (RSV) viral RNA from individuals suspected of respiratory viral infection consistent with COVID-19 by their healthcare provider. This test has not been validated in asymptomatic patients. The Xpert Xpress SARS-CoV-2 test is intended for use by qualified and trained operators who are performing tests using either [employer] or [employer] systems and is limited to laboratories that meet the CLIA requirements to perform high and moderate complexity tests. The Xpert Xpress SARS-CoV-2/Flu/RSV Plus is only for use under the Food and Drug Administration's Emergency Use Authorization. Results are for the simultaneous detection and differentiation of SARS-CoV-2, influenza A, influenza B and RSV nucleic acids in clinical specimens. SARS-CoV-2, influenza A, influenza B and RSV RNA identified by this test are generally detectable in upper respiratory samples during the acute phase of infection. Positive results are indicative of the presence of the identified virus, but do not rule out bacterial infection or co-infection with other pathogens not detected by this test. Clinical correlation with patient history and other diagnostic information is necessary to determine patient infection status. The agent detected may not be the definite cause of disease. Negative results do not preclude SARS-CoV-2, influenza A, influenza B and RSV infection and should not be used as the sole basis for treatment or other patient management decisions. Negative results must be combined with clinical observations, patient history and epidemiological information. An Invalid result may occur with specimen-associated inhibition unable to be resolved with specimen repeat. Fact Sheet for Healthcare Providers: https://www.fda.gov/m edia/900078/download Fact Sheet for Patients: https://www.fda.gov/m edia/331819/download Normal [facility] Comment on above: Performed By: #### C OVFLR #### [facility] ([id number]) [address], [address] [place] [address] XR FOOT RT MIN 3 VWSon 08-29 XR FOOT RT MIN 3 VWS XR FOOT RT MIN 3 VW S XR FOOT RT MIN 3 VWS HISTORY: Closed displaced fracture of second metatarsal bone of right foot, initial encounter; Closed nondisplaced fracture of third metatarsal bone of right foot, initial encounter; Closed nondisplaced fracture of fourth metatarsal bone of right foot, initial encounter. COMPARISON: 08/09/2023 IMPRESSION: Ongoing incomplete healing fractures base of second, third, fourth metatarsals. Soft tissue swelling about the dorsum of the foot. Finalized by Anthony Alcantara MD on 08/30/2023 2:[address] [facility] [address] FOOT RT WO CONTon 024 CT FOOT RT WO CONT CT FOOT RT WO CONT History: Trauma 13 days ago and diagnosed with 3-D fractures Closed displaced fracture of second metatarsal bone of right foot, initial encounter; Closed nondisplaced fracture of third metatarsal bone of right foot, initial encounter; Closed nondisplaced fracture of fourth metatarsal bone of right foot, initial encounter PROCEDURE: Automated exposure control was utilized. CT performed through the right foot compared with x-rays August 08 Findings: Lisfranc ligament appears to be intact judging by alignment Transverse fractures through the proximal aspect of the second third and fourth metatarsals. 1 mm avulsion off the dorsal proximal aspect of the first metatarsal sagittal image 33 series 501 at the margin of the articular surface No other fractures identified Tibial and fibular sesamoids intact IMPRESSION: Fractures second third and fourth metatarsal base and tiny avulsion dorsal first metatarsal proximal aspect Consider MRI if you suspect occult fractures of the tarsal bones or any other internal derangement. Finalized by Cade Serna MD on 08/12/2023 5:14 PM [facility] CT Foot - right ZANE rosales n 08-12-2023 History: Trauma 13 days ago and diagnosed with 3-D fractures Closed displaced fracture of second metatarsal bone of right foot, initial encounter; Closed nondisplaced fracture of third metatarsal bone of right foot, initial encounter; Closed nondisplaced fracture of fourth metatarsal bone of right foot, initial encounter PROCEDURE: Automated exposure control was utilized. CT performed through the right foot compared with x-rays August 08 Findings: Lisfranc ligament appears to be intact judging by alignment Transverse fractures through the proximal aspect of the second third and fourth metatarsals. 1 mm avulsion off the dorsal proximal aspect of the first metatarsal sagittal image 33 series 501 at the margin of the articular surface No other fractures identified Tibial and fibular sesamoids intact IMPRESSION: Fractures second third and fourth metatarsal base and tiny avulsion dorsal first metatarsal proximal aspect Consider MRI if you suspect occult fractures of the tarsal bones or any other internal derangement. Finalized by Cade Serna MD on 08/12/2023 5:14 PM [facility] Cade Serna MD - 08/12/2023 History: Trauma 13 days ago and diagnosed with 3-D fractures Closed displaced fracture of second metatarsal bone of right foot, initial encounter; Closed nondisplaced fracture of third metatarsal bone of right foot, initial encounter; Closed nondisplaced fracture of fourth metatarsal bone of right foot, initial encounter PROCEDURE: Automated exposure control was utilized. CT performed through the right foot compared with x-rays August 08 Findings: Lisfranc ligament appears to be intact judging by alignment Transverse fractures through the proximal aspect of the second third and fourth metatarsals. 1 mm avulsion off the dorsal proximal aspect of the first metatarsal sagittal image 33 series 501 at the margin of the articular surface No other fractures identified Tibial and fibular sesamoids intact IMPRESSION: Fractures second third and fourth metatarsal base and tiny avulsion dorsal first metatarsal proximal aspect Consider MRI if you suspect occult fractures of the tarsal bones or any other internal derangement. Finalized by Cade Serna MD on 08/12/2023 5:14 PM [facility] Study observation (narrative) [facility] CT Foot - right WO contrastO rdered By: Cade Serna on 08-12-2023 [facility] Work Phone: Bacteria identified Aer cx N om (Unsp spec)Ordered By: Margarita Rolon on 07-12-2023 Superficial Wound Culture Staphylococcus aureus [facility] Superficial Wound Cultureon 07-12-2023 Superficial Wound Culture LT ANKLE,LEGS, AND RT ARM ORGANISM: Staphylococcus aureus (O:STAAUR) Quantity of Growth Light Growth Aerobic SHAYY Charge (PCMIC38) ---- SUSCEPTIBILITY --- ORGANISM: O:STAAUR ANTIBIOTIC INTERPRETATION SHAYY Azithromycin R >4 Ceftaroline S <0.5 Ciprofloxacin R >2 Clindamycin R >4 Daptomycin S <0.5 Levofloxacin R >4 Linezolid S 2 Oxacillin S <0.25 Penicillin VIJAYA 2 Tetracycline S <4 Trimethoprim/Sulfamet hoxazole S <0.5 Vancomycin S 1 S = SUSCEPTIBLE I = INTERMEDIATE R = RESISTANT BLANK = DATA NOT AVAILABLE, OR DRUG NOT ADVISABLE OR TESTED R* = RESISTANCE DUE TO EXTENDED SPECTRUM BETA-LACTAMASES ESBL = EXTENDED SPECTRUM BETA-LACTAMASE TFG = THYMIDINE-DEPENDENT STRAIN VIJAYA = BETA-LACTAMASE POSITIVE IB = INDUCIBLE BETA-LACTAMASE. APPEARS IN PLACE OF 'S' WITH SPECIES KNOWN TO POSSESS INDUCIBLE BETA-LACTAMASES. POTENTIALLY THEY MAY BECOME RESISTANT TO ALL B-LACTAM DRUGS. PERFORMED BY: [place] [address] PATHOLOGIST MONOGRAM OPERATOR VALENTIN AYALA M.D. Normal [facility] Comment on above: Performed By: #### C USUP #### [address] XR ANKLE LT MIN 3 VWSon 02- XR ANKLE LT MIN 3 VWS XR ANKLE LT MIN 3 VWS XR ANKLE LT MIN 3 VWS 07/05/2023 9:23 AM INDICATION: Closed fracture of ankle, trimalleolar, left, with routine healing, subsequent encounter COMPARISON: None TECHNIQUE: 3 views of the left ankle were obtained. FINDINGS: Redemonstration of screw and plate fusion hardware of the distal tibia and fibula, with hardware in similar configuration compared to prior. No definite hardware fracture or periprosthetic lucency. Associated degenerative changes of the hindfoot, with increasing cystlike areas within the talus. Ankle mortise is similar in configuration compared to prior. No definite acute fracture. IMPRESSION: Postoperative ankle with increasing likely degenerative findings as described. Finalized by Hi Carpenter DO on 07/05/2023 4:00 PM Normal [facility] Provider Letteron 07-01-2023 Provider Letter Nahomy Winn DO [address] [place] [address] Re: Reginald Burnett Date of Visit: 06/24/2023 Dear Nahomy Winn DO, Thank you for the pleasure of contributing to this patient's care. Please see attached office note for my assessment and recommendations from today's visit. Let me know if you have any questions or concerns. Sincerely, Lima Hough APRN-BECK [place]er Providers: The following document(s) were included in the letter: June 24, 2023 14:44:37 EST - (06/24/2023) Office Visit Note Normal [facility] Allergy/Immunology Office/Cl inic Noteon 06-24-2023 Allergy/Immunology Office/Clinic Note Chief Complaint 4 month follow up for asthma and CAR History of Present Illness Reginald is a 42 year old female reporting to our office today for a 4 month follow up for asthma and CAR. Asthma: Patient denies any coughing, wheezing and [...] office visit. Patient reports she feels like the Nucala is still helping her asthma symptoms. She denies any bothersome side effects, and she denies any localized reactions at the injection site. Patient reports the epinephrine autoinjector is still within date, and the proper technique was reviewed. ACT: 25 Peak flow: 310 70% of Expected: 292 CAR: Patient denies any congestion, runny nose and PND. She is taking Zyrtec daily, Flonase daily and Azelastine daily. She reports some redness at the injection site that resolves after 30 minutes when she receives her allergy immunotherapy. 03/04/23: Assessment/Plan 1. Severe persistent asthma Chronic, stable on current therapies. -Continue Breo daily -Continue albuterol as needed for cough, shortness of breath, wheeze -Follow-up with pulmonology as previously planned -Continue Nucala monthly 2. Chronic allergic rhinitis due to fungal spores Chronic nasal symptoms are well controlled on current therapies. Reginald is no longer requiring daily oral antihistamines to control symptoms. -Continue Zyrtec daily as needed on shot days -Continue nasal sprays as needed -Continue monthly allergy injections -Notify office if allergy symptoms become uncontrolled Follow-up in 4 months or sooner if needed [1] Review of Systems General Symptoms Appetite change: No Fatigue: No Weakness: No Any frequent/recurrent infections: No Respiratory Symptoms Cough: No Shortness of breath: No Sputum production: No Wheezing: No EENT Symptoms Nasal discharge: No Nasal congestion: No Postnasal drainage: No Sore throat: No Any itching/watering/redn ess to eyes: No Nosebleeds: No Cardiovascular Symptoms Chest pain pressure: No Skin Symptoms Itching: No Rash: No Physical Exam Vitals & Measurements HT: 163 cm WT: 106.6 kg WT: 106.6 kg (Dosing) BMI: 40.12 General: Alert, well nourished, no acute distress. Eye: PERRL, EOMI, normal conjunctiva. HENT: Normocephalic, nonedematous nasal turbinates, moist oral mucosa. Neck: Supple, non-tender, no lymphadenopathy. Lungs: Clear to auscultation, non-labored respiration. Heart: Normal rate, regular rhythm, no murmur, gallop or edema. Skin: Skin is warm, dry and pink, no rashes or lesions. Neurologic: Awake, alert. Psychiatric: Cooperative, appropriate mood and affect. Additional Vitals No qualifying data available. Assessment/Plan 1. Chronic allergic rhinitis due to fungal spores Chronic nasal and sinus symptoms are well-controlled on current therapies. -Continue allergen avoidance measures -Continue nasal sprays and transition to as needed if tolerated -Continue monthly allergy injections (reached maintenance red 0.5 mL on 06/10/2021) -Notify office if allergy symptoms become uncontrolled Follow-up in [address] Michaels or sooner if needed 3. Severe persistent asthma Chronic respiratory symptoms are well-controlled on current therapies. -Continue Nucala monthly -Continue Breo daily -Continue albuterol as needed for cough, shortness of breath, wheeze -Follow-up with pulmonology as previously planned Time Spent with the Patient I have [...] breath Visual impairment Historical No qualifying data Procedure/Surgical History No qualifying data Medications ARIPiprazole 10 mg [...] tablet, 20 mg= 1 tabs, Oral, Daily EPINEPHrine 0.3 mg injectable kit fluticasone 50 mcg/inh nasal spray, See Instructions, 5 refills lamoTRIgine 100 mg oral tablet, 100 mg= 1 tabs, Oral, BID Misc Medication mometasone 50 mcg/inh nasal spray, 2 sprays, Nasal, BID (more content not included)... Normal [facility] FREE T4on 05-12-2022 Free T4 [Mass/Vol] 1.07 ng/dL Normal 0.76-1.46 [facility] Comment on above: Performed By: #### F T4 #### [facility] [address] [place] [address] Dr. Brandon Frank HEMOGRAM AND PLATELon 2022 Hematocrit (Bld) [Volume fraction] 41.7 % Normal 36.0-48.0 [facility] Comment on above: Performed By: #### H H #### [facility] [address] [place] [address] Dr. Brandon Frank Hemoglobin (Bld) [Mass/Vol] 13.7 g/dL Normal 12.0-16.[address] [facility] Comment on above: Performed By: #### H H #### [facility] [address] [place] [address] Dr. Brandon Frank MCH (RBC) [Entitic mass] 29.0 pg Normal 26.7-34.0 [facility] Comment on above: Performed By: #### H H #### [facility] [address] [place] [address] Dr. Brandon Frank MCHC (RBC) [Mass/Vol] 32.9 g/dL Normal 29.9-35.2 [facility] Comment on above: Performed By: #### H H #### [facility] [address] [place] [address] Dr. Brandon Frank MCV (RBC) [Entitic vol] 88.3 fL Normal 81.0-99.0 [facility] Comment on above: Performed By: #### H H #### [facility] [address] [place] [address] Dr. Brandon Frank PLT 266 103/ul Normal 150-[address] [facility] Comment on above: Performed By: #### H H #### [facility] [address] [place] [address] Dr. Brandon Frank RBC 4.72 106/ul Normal 4.20-5.[address] [facility] Comment on above: Performed By: #### H H #### [facility] [address] [place] [address] Dr. Brandon Frank WBC 6.5 103/ul Normal 4.0-11.[address] [facility] Comment on above: Performed By: #### H H #### [facility] [address] [address] [address] Brandon Frank PROF 14(COMP METB)on 023 Albumin [Mass/Vol] 3.4 g/dL Normal 3.4-5.0 [facility] Comment on above: Performed By: #### T SH, CMP #### [facility] [address] [address] [address] Brandon Frank Albumin/Globulin [Mass ratio] 0.8 {ratio} Normal [facility] Comment on above: Performed By: #### T SH, CMP #### [facility] [address] [place] [address] Dr. Brandon Frank ALP [Catalytic activity/Vol] 82 U/L Normal 46-116 [facility] Comment on above: Performed By: #### T SH, CMP #### [facility] [address] [place] [address] Dr. Brandon Frank ALT [Catalytic activity/Vol] 53 U/L Normal 14-59 [facility] Comment on above: Performed By: #### T SH, CMP #### [facility] [address] [place] [address] Dr. Brandon Frank Anion gap [Moles/Vol] 12.6 mmol/L Normal [facility] Comment on above: Performed By: #### T SH, CMP #### [facility] [address] [place] [address] Dr. Brandon Frank AST [Catalytic activity/Vol] 37 U/L Normal 15-37 [facility] Comment on above: Performed By: #### T SH, CMP #### [facility] [address] [place] [address] Dr. Brandon Frank Bilirubin [Mass/Vol] 0.8 mg/dL Normal 0.2-1.0 [facility] Comment on above: Performed By: #### T SH, CMP #### [facility] [address] [place] [address] Dr. Brandon Frank Calcium [Mass/Vol] 8.9 mg/dL Normal 8.5-10.1 [facility] Comment on above: Performed By: #### T SH, CMP #### [facility] [address] [place] [address] Dr. Brandon Frank Chloride [Moles/Vol] 104 mmol/L Normal 98-107 [facility] Comment on above: Performed By: #### T SH, CMP #### [facility] [address] [place] [address] Dr. Brandon Frank CO2 [Moles/Vol] 25.8 mmol/L Normal 21.0-32.0 [facility] Comment on above: Performed By: #### T SH, CMP #### [facility] [address] [place] [address] Dr. Brandon Frank Creatinine [Mass/Vol] 0.81 mg/dL Normal 0.55-1.02 [facility] Comment on above: Performed By: #### T SH, CMP #### [facility] [address] [place] [address] Dr. Brandon Frank EGFR-AF MONTENEGRIN >60 Normal >=60 [facility] Comment on above: Performed By: #### T SH, CMP #### [facility] [address] [place] [address] Dr. Brandon Frank EGFR-NON AF MONTENEGRIN >60 Normal >=60 [facility] Comment on above: Performed By: #### T SH, CMP #### [facility] [address] [place] [address] Dr. Brandon Frank Globulin (S) [Mass/Vol] 4.1 g/dL Normal [facility] Comment on above: Performed By: #### T SH, CMP #### [facility] [address] [place] [address] Dr. Brandon Frank Glucose [Mass/Vol] 107 mg/dL Critically high 74-106 [facility] [place] Comment on above: Performed By: #### T SH, CMP #### [facility] [address] [place] [address] Dr. Brandon Frank Potassium [Moles/Vol] 4.4 mmol/L Normal 3.5-5.1 [facility] Comment on above: Performed By: #### T SH, CMP #### [facility] [address] [address] [address] Brandon Frank Protein [Mass/Vol] 7.5 g/dL Normal 6.4-8.2 [facility] Comment on above: Performed By: #### T SH, CMP #### [facility] [address] [address] [address] Brandon Frank Sodium [Moles/Vol] 138 mmol/L Normal 136-145 [facility] Comment on above: Performed By: #### T SH, CMP #### [facility] [address] [address] [address] Brandon Frank Urea nitrogen [Mass/Vol] 10.0 mg/dL Normal 7.0-18.0 [facility] Comment on above: Performed By: #### T SH, CMP #### [facility] [address] [address] [address] Brandon Frank Urea nitrogen/Creatinine [Mass ratio] 12.3 mg/mg Normal [facility] Comment on above: Performed By: #### T SH, CMP #### [facility] [address] [address] [address] Brandon Frank TSHon 05-12-2022 TSH 1.593 uIU/mL Normal 0.358-3.740 [facility] Comment on above: Performed By: #### T SH, CMP #### [facility] [address] [address] [address] Brandon Frank MG MAMM SCREEN 3D ANTONIO CADon 04-30-2022 MG MAMM SCREEN 3D ANTONIO CAD Patient: REGINALD BURNETT Exam Date: 04/30/2022 : 1980 Gender:F Ordering : DR KACIE ETIENNE . Admission #: [id number] Family : Order #: [id number] CLICK HERE TO VIEW EXAM RADIOLOGY REPORT PROCEDURE: MAMMOGRAM SCREENING 3D BILATERAL CAD COMPARISON: None. INDICATIONS: Screening for malignant neoplasm of breast Calculator Name NCI Breast Cancer Risk Assessment Tool 5 Year Breast Cancer Risk 0.70% Lifetime Breast Cancer Risk 10.90% Personal Breast Cancer No Personal Ovarian Cancer No Treatments None Family Cancers None LOCATION: [facility] BREAST COMPOSITION: Scattered areas fibroglandular density. FINDINGS: DIAGNOSTIC CATEGORY 2--BENIGN FINDING: RIGHT BREAST: No significant suspicious finding. Scattered benign-appearing asymmetries and lymph nodes are present. LEFT BREAST: No significant suspicious finding. RECOMMENDATIONS: ROUTINE MAMMOGRAM AND CLINICAL EVALUATION IN 12 MONTHS. PLEASE NOTE: A NORMAL MAMMOGRAM DOES NOT EXCLUDE THE POSSIBILITY OF BREAST CANCER. A CLINICALLY SUSPICIOUS PALPABLE LUMP SHOULD BE BIOPSIED. Dictated by: Marilu Hagan M.D. on 04/30/2022 at 15:38 Approved by: Marilu Hagan M.D. on 04/30/2022 at 15:42 Normal [facility] US TANNA DOP LEG RTon 04-30-20 22 US TANNA DOP LEG RT Begin Addendum # 1 There are no images provided of the right groin, per catheter finisher and inspector there was no evidence of an inguinal [...] waveforms. IMPRESSION: No evidence for DVT. Normal [facility] PAP ACOG PANEL 2: 30 to 65on 04-21-2022 . . Normal [facility] Comment on above: Result Comment: Perf ormed at: WB Performed By: #### [id number] #### [facility] [address] [place], [place] [address] Dr. Brandon Frank Age Gdln ACOG Testing 30-65 Normal [facility] Comment on above: Performed By: #### [id number] #### [facility] [address] [place], [place] [address] Dr. Brandon Frank DIAGNOSIS: Comment Normal [facility] Comment on above: Result Comment: NEGA TIVE FOR INTRAEPITHELIAL LESION OR MALIGNANCY. PREDOMINANCE OF COCCOBACILLI CONSISTENT WITH SHIFT IN VAGINAL ADI IS PRESENT. Performed at: WB Performed By: #### [id number] #### [facility] [address] [place] [address] Dr. Brandon Frank HPV Aptima Negative Normal Negative [facility] Comment on above: Result Comment: This nucleic acid amplification test detects fourteen high-risk HPV types (16,18,31,33,35,39,45,51,52,56,58,59,66,68) without differentiation. Performed at: =G Performed By: #### [id number] #### [facility] [address] [place] [address] Dr. Brandon Frank HPV Genotype Reflex Comment Normal [facility] Comment on above: Result Comment: Crit eria not met, HPV Genotype not performed. Performed at: WB Performed By: #### [id number] #### [facility] [address] [place] [address] Dr. Brandon Frank Methodology: Comment Normal [facility] Comment on above: Result Comment: This liquid based ThinPrep(R) pap test was screened with the use of an image guided system. Performed at: WB Performed By: #### [id number] #### [facility] [address] [place] [address] Dr. Brandon Frank Note: Comment Normal [facility] Comment on above: Result Comment: The Pap smear is a screening test designed to aid in the detection of premalignant and malignant conditions of the uterine cervix. It is not a diagnostic procedure and should not be used as the sole means of detecting cervical cancer. Both false-positive and false-negative reports do occur. . Performed at: WB Performed By: #### [id number] #### [facility] [address] [place] [address] Dr. Brandon Frank Performed by: Comment Normal [facility] Comment on above: Result Comment: Nida Nguyen, Felt Puller Performed at: WB Performed By: #### [id number] #### [facility] [address] [place] [address] Dr. Brandon Frank Specimen adequacy: Comment Normal [facility] Comment on above: Result Comment: Sati sfactory for evaluation. No endocervical component is identified. Performed at: WB Performed By: #### [id number] #### [facility] [address] [address] [address] Brandon Frank Ambulatory Clinical Summaryo n 07-30-2020 Ambulatory Clinical Summary {[id number]}CD:[id number] Normal [facility] Patient Educationon 07-31-19 21 Patient Education [...] Document Reviewed: 02/20/2010 ExitCare? Patient Information ?2013 [address] [employer] [facility] Urology Office/Clinic Noteon 07-30-2020 Urology Office/Clinic Note Chief Complaint Reginald is here today for follow-up visit. She states that her voiding complaints have significantly improved since her urethral dilation was completed. HPI Staff Reginald is a 39 y.o. female here for [...] Contact Information Patrick Hyatt MD, Yemi Yee [address] [place], [place] [address] Additional Instructions: prn Patient Education Urinary Frequency Erna Salomon , personally scribed for Dr. Nguyen on [...] 1 cap(s), Oral, BID Flonase 0.05 mg/inh Calvin, 2 spray(s), Nasal, BID Flovent HFA 220 [...] influenza virus vaccine, inactivated 01/2020 Recorded Normal [facility] Comment on above: Result Comment: Elec tronically Signed By: Patrick Hyatt MD, Yemi Yee\.br\Date and Time Signed: 07/30/20 14:14 EDT\.br\Electronically Co-Signed By: Erna Barron MA\.br\Date and Time Co-Signed: 07/30/20 13:50 EDT Consent for Procedure/Surger yon 03-26-2020 Consent for Procedure/Surgery [id number] .[id number]:127 Normal [facility] Ambulatory Clinical Summaryo n 03-25-2020 Ambulatory Clinical Summary {[id number]}CD:[id number] [facility] Patient Educationon 03-25-20 Patient Education Obesity Obesity is having too [...] Document Reviewed: 07/18/2012 ExitCare? Patient Information ?2013 [facility] Obesity Obesity is having too much [...] Document Reviewed: 07/18/2012 ExitCare? Patient Information ?2013 [address] the stars[address] [facility] Urology Office/Clinic Noteon 03-25-2020 Urology Office/Clinic [...] urine The Urethra was dilated to: 28 Indonesian with sounds. Urethral dilation was uneventful. Removal: [...] Hyatt MD, Yemi Yee In 4 weeks [address] [place] [address]- Additional Instructions: Patient Education Obesity, Losp-qp-Yjhv Obesity, Qqqp-jp-Vfpy Rossy Salomon, personally scribed for Dr. Nguyen on 03/25/2020 [...] 1 cap(s), Oral, BID Flonase 0.05 mg/inh Calvin, 2 spray(s), Nasal, BID Flovent HFA 220 [...] and this was dilated without complication. Normal [facility] Comment on above: Result Comment: Elec tronically Signed By: Patrick Hyatt MD, Yemi Yee\.br\Date and Time Signed: 03/25/20 13:58 EST\.br\Electronically Co-Signed By: Rossy Aranda MA\.br\Date and Time Co-Signed: 03/25/20 13:56 EST [employer] 03-06-2020 Forms [id number]:127 Normal [facility] Ambulatory Clinical Summaryo n 03-05-2020 Ambulatory Clinical Summary {[id number]}CD:[id number] Normal [facility] Patient Educationon 03-05-20 20 Patient Education [...] bladder worse. Your healthcare provider or a developmental electronics assembler can explain ways to change what you [...] Document Reviewed: 02/20/2010 ExitCare? Patient Information ?2013 [address] the stars[address] 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 There have been no associated [...] Will order Local anesthesia. ABX sent to [facility] in [place]. Ordered: Urology Procedure Order 2. Urge incontinence [...] day(s), # 2 tab(s), Refills(s) 0, Pharmacy: [id number], 160, cm, 03/05/20 10:44:00 EDT, Height/Length Dosing, 96, kg, 03/05/20 10:43:00... Urnls Dip Stick Auto w/o Microscopy POC 85118 Urnls Dip Stick Auto w/o Microscopy POC 41265 I have reviewed the previous health record information and history for this pt. from Dr. Nguyen. Follow-up With When Contact Information Patrick Hyatt MD, Yemi Yee [address] [place], [place] [address]- Additional Instructions: Patient Education Overactive Bladder, Adult [...] 1 cap(s), Oral, BID Flonase 0.05 mg/inh Calvin, 2 spray(s), Nasal, BID Flovent HFA 220 [...] Protein Urine Dipstick: Trace (03/05/20 10:44:00) Specific [place] Urine Dipstick: 1.020 (03/05/20 10:44:00) Urine Appearance Urine Dipstick: Cloudy (03/05/20 10:44:00) Urine Color Urine Dipstick: Yellow (03/05/20 10:44:00) Urobilinogen Urine Dipstick: Normal 0.2-1 EU/dl (03/05/20 10:44:00) pH Urine Dipstick: 7.5 (03/05/20 10:44:00) Diagnostic Results Reviewed urinalysis showing no evidence of infection. Reviewed the note from Dr. Etienne. PVR today was 271 cc. Normal [facility] Comment on above: Result Comment: Elec tronically Signed By: Patrick Hyatt MD, Yemi Yee\.br\Date and Time Signed: 03/05/20 12:21 EDT\.br\Electronically Co-Signed By: Erna Barron MA\.br\Date and Time Co-Signed: 03/05/20 11:13 EDT Corinne 09-06-2018 CNPN Telephone (NE50MN) REGINALD BURNETT ([id number]) 1980 F Date Time Provider Department 09/06/18 RAMIREZ FOOTE NE50MN During your visit today, we recorded the following information about you: Ghazal Medrano [facility] 09/06/2018 4:03 PM Signed General call : Full name of person calling: Reginald Burnett Relationship to patient: Self Phone # : [phone] Reason for call: Please refax letter to [...] Known Allergies) Date Reviewed: 05/20/2017 Reviewed by: Reggie Mahoney Ma - Fully Assessed Reason for [...] Encounter Status:Closed by GHAZAL JOLLEY on 09/06/18 Normal [facility] Vital Signs Date Time Vital Sign Value Performing Clinician Facility 10-06-2023 14:05-040 Body height 160.02 cm DO Nahomy Peregrine DiamondsschEvolvg Work Phone: [facility] 10-06-2023 14:05-0400 Body mass index (BMI) [Ratio] 39.4 kg/m2 DO Nahomy Rumschlag Work Phone: [facility] 10-06-2023 14:05-0400 Body weight 100.92 kg DO Nahomy Peregrine Diamondsschlag Work Phone: [facility] 10-06-2023 14:05-0400 Diastolic blood pressure 86 mm[Hg] DO Nahomy Rumschlag Work Phone: [facility] 10-06-2023 14:05-0400 Heart rate 61 /min DO Nahomy Rumschlag Work Phone: [facility] 10-06-2023 14:05-0400 Respiratory rate 16 /min DO Nahomy Rumschlag Work Phone: [facility] 10-06-2023 14:05-0400 SaO2% (BldA) [Mass fraction] 100 % DO Nahomy Rumschlag Work Phone: [facility] 10-06-2023 14:05-0400 Systolic blood pressure 122 mm[Hg] DO Nahomy Rumschlag Work Phone: [facility] 08-25-2023 14:29-0400 Body height 160.02 cm DO Nahomy Rumschlag Work Phone: [facility] 08-25-2023 14:29-0400 Body mass index (BMI) [Ratio] 40.6 kg/m2 DO Nahomy Rumschlag Work Phone: [facility] 08-25-2023 14:29-0400 Body weight 104 kg DO Nahomy Rumschlag Work Phone: [facility] 08-12-2023 12:14-0400 Body height 160 cm Sharla Birch PA-C Work Phone: [facility] 08-12-2023 12:14-0400 Body mass index (BMI) [Ratio] 39.52 kg/m2 Sharla Birch PA-C Work Phone: [employer] 08-12-2023 12:14-0400 Body temperature 97 [degF] Sharla Birch PA-C Work Phone: [employer] 08-12-2023 12:14-0400 Body weight 101.2 kg Sharla [employer] PA-C Work Phone: [employer] 06-14-2023 11:00-0500 Body height 160.02 cm Enoch Nguyen Other [employer] Other 06-14-2023 11:00-0500 Body mass index (BMI) [Ratio] 42.35 kg/m2 Enoch Nguyen Other [employer] Other 06-14-2023 11:00-0500 Body weight 108.46 kg Enoch Nguyen Other [employer] Other 06-14-2023 11:00-0500 Diastolic blood pressure 92 mm[Hg] Enoch Nguyen Other [employer] Other 06-14-2023 11:00-0500 Respiratory rate 18 /min Enoch Nguyen Other [employer] Other 06-14-2023 11:00-0500 SaO2% (BldA) [Mass fraction] 98 % Enoch Nguyen Other [employer] Other 06-14-2023 11:00-0500 Systolic blood pressure 130 mm[Hg] Enoch Nguyen Other [employer] Other 05-18-2023 09:21-0500 Body height 160 cm Tomas Rodriguez PA-C Work Phone: [employer] 05-18-2023 09:21-0500 Body mass index (BMI) [Ratio] 39.15 kg/m2 Tomas Rodriguez PA-C Work Phone: [employer] 05-18-2023 09:21-0500 Body weight 100.25 kg Tomas Rodriguez PA-C Work Phone: [employer] 05-18-2023 09:21-0500 Diastolic blood pressure 89 mm[Hg] Tomas Rodriguez PA-C Work Phone: [employer] 05-18-2023 09:21-0500 Heart rate 93 /min Tomas Rodriguez PA-C Work Phone: [employer] 05-18-2023 09:21-0500 Systolic blood pressure 133 mm[Hg] Tomas Rodriguez PA-C Work Phone: [employer] Encounters Encounter Date Encounter Type Care Provider Facility Start: 04-19-2024 End: 04-19-2024 ambulatory Lima Hough SMOKE ROOM OPERATOR-SCOOP OPERATOR Facility:[facility] Start: 04-12-2024 End: 04-12-2024 ambulatory Nahomy Vicente Rumschlag DO Facility:[facility] Start: 03-15-2024 End: 03-15-2024 ambulatory Nahomy Vicente Rumschlag DO Facility:[facility] Start: 03-01-2024 ambulatory Ross Vanegas acility:[facility] Start: 02-16-2024 End: 02-16-2024 ambulatory Lima Hough SMOKE ROOM OPERATOR-SCOOP OPERATOR Facility:[facility] Start: 01-19-2024 End: 01-19-2024 ambulatory Nahomy Vicente Rumschlag DO Facility:[facility] Start: 12-22-2023 End: 12-22-2023 ambulatory Nahomy Vicente Rumschlag DO Facility:[facility] Start: 12-15-2023 End: 12-15-2023 ambulatory Nahomy Vicente Rumschlag DO Facility:[facility] Start: 11-24-2023 End: 11-24-2023 ambulatory Nahomy Vicente Rumschlag DO Facility:[facility] Start: 10-27-2023 End: 10-27-2023 ambulatory Nahomy Vicente Rumschlag DO Facility:[facility] Start: 10-06-2023 End: 10-06-2023 ambulatory DO Nahomy Rumschlag Work Phone: [facility] Work Phone: Start: 10-06-2023 End: 10-06-2023 Patient encounter procedure DO Nahomy Rumschlag Work Phone: [facility] Work Phone: Start: 09-30-2023 End: 10-01-2023 ambulatory HORTENCIA CAMARA [facility] Start: 09-29-2023 End: 09-29-2023 ambulatory Nahomy Vicente Rumschlag DO Facility:[facility] Start: 09-21-2023 End: 09-22-2023 ambulatory REGGIE Varsha EVANS [facility] Start: 09-16-2023 Registered Recurring DO Nahomy Rumschlag Work Phone: [facility] Start: 09-13-2023 End: 09-14-2023 ambulatory HOLGER Joselito KOHLILE [facility] Start: 08-30-2023 End: 08-31-2023 ambulatory DANIE Kareem MCGINNIS [facility] Start: 08-25-2023 End: 08-25-2023 ambulatory Lucie Michaels MD Facility:[facility] Start: 08-25-2023 End: 08-25-2023 ambulatory DO Nahomy Rumschlag Work Phone: [facility] Work Phone: Start: 08-25-2023 End: 08-25-2023 Patient encounter procedure DO Nahomy Rumschlag Work Phone: [facility] Work Phone: Start: 08-18-2023 End: 08-18-2023 ambulatory Nahomy Vicente Rumschlag DO Facility:[facility] Start: 08-16-2023 End: 08-16-2023 ambulatory VISHAL CHRISTINE [facility] Start: 08-12-2023 End: 08-13-2023 ambulatory SHARLA BIRCH [facility] Start: 08-12-2023 End: 08-12-2023 ambulatory NAHOMY K [facility] Start: 08-12-2023 End: 08-12-2023 Office outpatient visit 25 minutes Sharla Birch PA-C Work Phone: [facility] Comment on above: Closed displaced fra cture of second metatarsal bone of right foot, initial encounter (Primary Dx); Closed nondisplaced fracture of third metatarsal bone of right foot, initial encounter; Closed nondisplaced fracture of fourth metatarsal bone of right foot, initial encounter Start: 08-09-2023 Telephone encounter [facility] Start: 08-09-2023 End: 08-10-2023 Emergency department patient visit ALAN CAREY [facility] Start: 07-20-2023 Telephone encounter [facility] Start: 07-14-2023 End: 07-14-2023 ambulatory Nahomy Winn DO Facility:[facility] Start: 07-12-2023 End: 07-12-2023 ambulatory Nahomy Winn Facility:[facility] Start: 07-12-2023 End: 07-12-2023 Departed Referred DO Nahomy Winn Work Phone: [facility] [place] Work Phone: Start: 07-05-2023 End: 07-06-2023 ambulatory VISHAL CHRISTINE [facility] Start: 07-02-2023 Telephone encounter Cathleen dietrich [facility] Comment on above: Closed fracture of a nkle, trimalleolar, left, with routine healing, subsequent encounter (Primary Dx) Start: 07-01-2023 End: 07-01-2023 Emergency department patient visit NAHOMY AMBROSIOMIMarisol [facility] Start: 06-24-2023 End: 06-24-2023 ambulatory Lima GRIFFITH Facility:[facility] Start: 06-17-2023 End: 06-17-2023 ambulatory Michael Dozier MD Facility:[facility] Start: 06-14-2023 Encounter by vishal Braga [facility] Start: 06-14-2023 Nutrition therapy Enoch Nguyen [facility] Start: 06-14-2023 Registered Recurring DO Nahomy Rumschlag Work Phone: [facility] Work Phone: Start: 06-14-2023 End: 06-14-2023 ambulatory Enoch Nguyen [facility] Other Start: 05-18-2023 End: 05-18-2023 ambulatory TOMAS [facility]er [facility] Start: 05-18-2023 End: 05-18-2023 Office outpatient visit 15 minutes Tomas Rodriguez PA-C Work Phone: [facility] Comment on above: Dizziness (Primary D x); History of epilepsy Start: 04-28-2023 End: 04-28-2023 ambulatory Michael Dozier MD Facility:[facility] Start: 04-19-2023 End: 04-19-2023 ambulatory JACQUIE RAMIREZ Not Available Start: 04-09-2023 End: 05-10-2023 ambulatory TOMAS Greer [facility] Start: 05-12-2022 ambulatory NAHOMY JUAN JOSESCHTERESA Facilit y:[facility] Start: 04-30-2022 End: 05-01-[address] KACIE ETIENNE Facility:[facility] Start: 04-20-2022 End: 04-21-2022 ambulatory NAHOMY WINN Facility:[facility] Start: 04-13-2022 End: 04-13-[address] KACIE ETIENNE Facility:[facility] Procedures Date Procedure Procedure Detail Performing Clinician Start: 08-12-2023 Follow-up visit Follow-up SHARLA BIRCH Start: 07-12-2023 Aerobic microbial culture DO Nahomy Rumschlag Work Phone: Start: 05-18-2023 Follow-up visit Follow-up TOMAS RODRIGUEZ Start: 03-23-2023 Adult depression screening assessment Tomas Rodriguez PA-C Work Phone: Plan of Treatment Date Care Activity Detail Author Start: 01-22-2033 DTaP,Tdap and Td Vaccines (2 - Td or Tdap) DTaP,Tdap and Td Vaccines (2 - Td or Tdap) [facility] Start: 08-11-2024 Adult BMI Screening Adult BMI Screen ing [facility] Start: 08-11-2024 Tobacco Screening Tobacco Screening [facility] Start: 08-08-2024 Adult BMI Screening Adult BMI Screen ing [facility] Start: 08-08-2024 Tobacco Screening Tobacco Screening [facility] Start: 07-05-2024 Adult BMI Screening Adult BMI Screen ing [facility] Start: 07-01-2024 Adult BMI Screening Adult BMI Screen ing [facility] Start: 07-01-2024 Tobacco Screening Tobacco Screening [facility] Start: 05-18-2024 Adult BMI Screening Adult BMI Screen ing [facility] Start: 05-18-2024 Tobacco Screening Tobacco Screening [facility] Start: 03-23-2024 Depression Screening Depression Scre ening [facility] Start: 01-09-2024 Influenza vaccination Influenza Vacc ine [facility] Start: 09-09-2023 End: 09-09-2023 Patient encounter procedure 09/09/2023 3:30 PM EDT Office Visit [facility] [address] [place] [id number] [place] [address] [place] [address] [facility] Start: 08-19-2023 End: 08-19-2023 Patient encounter procedure 08/19/2023 10:15 AM EDT Office Visit [facility] [address] [place] [address] Vishal Christine MD [address] [place], [place] [id number] [facility] Start: 08-16-2023 End: 08-16-2023 Patient encounter procedure 08/16/2023 9:30 AM EDT Office Visit [facility] [address] [place] [address] Vishal Christine MD [facility] [address] [facility] [place] [address] [facility] Start: 08-12-2023 End: 08-12-2023 Patient encounter procedure 08/12/2023 12:15 PM EDT Office Visit [facility] [address] [place] [address] [address] [place] [id number] Vishal Christine MD [facility] [address] [facility] [place] [address] [facility] Start: 07-05-2023 End: 07-05-2023 Patient encounter procedure [facility] Start: 07-02-2023 End: 07-02-2024 XR Ankle - left 3 Views X-ray ankle left minimum 3 views Imaging Routine Closed fracture of ankle, trimalleolar, left, with routine healing, subsequent encounter Expected: 07/02/2023, Expires: 07/02/2024 [facility] Work Phone: Comment on above: Expected: 07/02/2023 , Expires: 07/02/2024 Start: 01-08-2023 COVID-19 Vaccine ( season) COVID-19 Vaccine ( season) [facility] Start: 12-06-1997 Adult BMI Follow Up Plan Adult BMI Follow Up Plan [facility] Immunizations Immunization Date Immunization Notes Care Provider Fa sabino 01-22-2023 influenza virus vaccine, unspecified formulation Tran Wright [facility] 05-13-2021 Seasonal, quadrivale nt, recombinant, injectable influenza vaccine, preservative free Tomas Rodriguez PA-C Work Phone: [facility] 02-28-2020 influenza, injectabl e, quadrivalent, preservative free Tomas Rodriguez PA-C Work Phone: [facility] 02-26-2017 influenza, seasonal, injectable Tomas Rodriguez PA-C Work Phone: [employer] 03-13-2014 influenza, seasonal, injectable Tomas Rodriguez PA-C Work Phone: [employer] 03-30-2011 influenza virus vaccine, whole virus Tomas Rodriguez PA-C Work Phone: [employer] Payers Date Payer Category Payer Medicare [id number] 2023 Medicare [id number] 2022 Self-[place] 2022 [place] -[place] MCBAIN [id number] 2022-Present [phone] [address] [place] [address] [id number] 2022 Unknown [id number] 2021 Unknown 2020 Unknown [id number] 1979 Unknown [id number] 2.840.1.101554.3.579.2.593 1979 Unknown [id number] 2.16840.1.022960.3.579.2.593 1979 Unknown [id number] 2.16840.1.023382.3.579.2.593 1979 Unknown [id number] 2.16.840.1.279720.3.579.2.593 1979 Unknown [id number] 2.16.840.1.811966.3.579.2.1259 1979 Unknown [id number] 2.16.840.1.856719.3.579.2.1286 1979 Unknown [id number] 2.16.840.1.338828.3.579.2.1285 1979 Unknown [id number] 2.16.840.1.234537.3.579.2.1285 1979 Unknown [id number] 2.840.1.843502.3.579.2.1285 1979 Unknown [id number] 2.16.840.1.995159.3.579.2.1285 1979 Unknown [id number] 2.16840.1.254291.3.579.2.1285 1979 Unknown [id number] 2.16840.1.188486.3.579.2.1285 1979 Unknown [id number] 2.840.1.794422.3.579.2.1285 1979 Unknown [id number] 2.840.1.610123.3.579.2.1285 1979 Unknown [id number] 2.840.1.166157.3.579.2.1285 1979 Unknown [id number] 2.840.1.379001.3.579.2.1285 1979 Unknown [id number] 2.840.1.304332.3.579.2.1285 1979 Unknown [id number] 2.840.1.258043.3.579.2.1285 1979 Unknown [id number] 2.840.1.979508.3.579.2.1285 1979 Unknown [id number] 2.16840.1.039614.3.579.2.1285 1979 Unknown [id number] 2.16840.1.194900.3.579.2.1285 1979 Unknown [id number] 2.16840.1.868246.3.579.2. 1979 Unknown [id number] 2.16840.1.006764.3.579.2.196 1979 Unknown [id number] 2.16.840.1.473326.3.579.2.196 1979 Unknown [id number] 2.16.840.1.977165.3.579.2. 1979 Unknown [id number] 2.16.840.1.713139.3.579.2.196 1979 Unknown [id number] 2.16840.1.551911.3.579.2. 1979 Unknown [id number] 2.16.840.1.626350.3.579.2.196 1979 Unknown [id number] 2.16840.1.440761.3.579.2. 1979 Unknown [id number] 2.840.1.093051.3.579.2. 1979 Unknown [id number] 2.840.1.069765.3.579.2. 1979 Unknown [id number] 2.16840.1.455575.3.579.2.196 1979 Unknown [id number] 2.840.1.147828.3.579.2. 1979 Unknown [id number] 2.840.1.310990.3.579.2.196 1979 Unknown [id number] 2.840.1.861289.3.579.2. 1979 Unknown [id number] 2.16.840.1.883750.3.579.2. 1979 Unknown [id number] 2.16840.1.705737.3.579.2. 1979 Unknown [id number] 2.16840.1.344280.3.579.2. Unknown [id number] 2.16840.1.034348.3.579.2.531 Unknown [id number] 2.16840.1.908558.3.579.2.531 Social History Date Type Detail Facility Start: 04-07-2022 Tobacco smoking stat us MEIS Never smoked tobacco [facility] Start: 04-07-2022 Tobacco use and exposure Smoke less tobacco non-user [facility] Start: 05-18-2023 End: 08-12-2023 Alcohol intake Current non-drinker of alcohol (finding) [facility] Start: 07-12-2020 End: 08-12-2023 History of Social function [facility] Start: 07-12-2020 End: 08-12-2023 Social connection and isolation panel [facility] Do you belong to any clubs or organizations such as restorationism groups, unions, fraternal or athletic groups, or school groups? No [facility] Are you now , , , , never or living with a partner? Never [facility] How hard is it for y ou to pay for the very basics like food, housing, medical care, and heating Not hard at all [facility] Do you feel stress - tense, restless, nervous, or anxious, or unable to sleep at night because your mind is troubled all the time - these days [OSQ] Not at all [facility] Start: 1980 Sex Assigned At Not on file P [facility] Start: 1980 Sex Assigned At Female F [facility] Medical Equipment Procedure Code Equipment Code Equipment Origin al Text Equipment Identifier Dates Clamp Xtrnfx 11m m 8mm Cmbn Clpon Slf Hld Mr Conditional Ns - [id number] Start: 07-26-2022 Pin Fx 225mm 5mm Stnm Ss Cntr Thrd Ns Lg Xtrnfxtr - [id number] Start: 07-26-2022 Impl Nsl Propel Mn Mometasone - Sna - [id number] Start: 10-14-2017 Drill Bit 3.5mm [id number] Start: 07-26-2022 Plate Bn 116mm C ntr 6 Hl Lcp Cmbn Fib Lt Dist P/L Ss Ns - [id number] Start: 08-18-2022 Mahesh Xtrnfx 350mm 11mm Cfbr Mr Conditional Ns - [id number] Start: 07-26-2022 Screw Xtrnfx 125 mm 4mm Schnz Hip Cndyl Ss Slf Drl Mr - [id number] Start: 07-26-2022 Screw Bn 54mm [address]m [address] Slf Drl Cnn Sm Hex Sckt L/T - [id number] Start: 08-18-2022 Impl Nsl Jeff Marion - [facility] - [id number] Start: 10-14-2017 Goals Date Patient Goal Desired Activity /State Personal health goal Comment on above: Formatting of this n ote might be different from the original. Evaluation of progress towards goal: safe transition from hospital to home with family support. Personal health goal Comment on above: Formatting of this n ote might be different from the original. Evaluation of progress towards goal: Discharge home with home care and family support Clinical Notes 05-18-2023 to 08-12-2023 Sharla Birch PA-C - 08/12/2023 12:15 PM EDTTelephone Encounter - Tran Wright - 08/09/2023 1:03 PM EDTTelephone Encounter - Sharla Birch PA-C - 08/09/2023 1:03 PM EDT Note Date & Type Note Facility 08-12-2023 History of Presen t illness Narrative Chief complaint: right foot fractures Date of injury: 08/09/2023 HPI: Reginald Burnett is a 42 y.o. female her right foot fractures. Patient states that she slipped down some stairs sustaining her injury. Patient is seen in the ED and placed in a fracture shoe. Patient. Patient states that she does have swelling of the foot and she has been icing and elevating. Patient denies numbness or tingling to right lower extremity. Past Medical History: Diagnosis Date Asthma Chronic pain disorder Depression Epilepsy ([facility]) GERD (gastroesophageal reflux disease) Low back pain Obesity Seizures ([facility]) last siezure in 1990 Shortness of breath Visual impairment glasses Past Surgical History: Procedure Laterality Date APPLICATION EXTERNAL FIXATOR LOWER EXTREMITY Left 07/26/2022 Performed by Vishal Christine MD at [facility] BRAIN SURGERY tissue removed, causing seizures CLOSED REDUCTION ANKLE Left 07/26/2022 Performed by Vishal Christine MD at [facility] CLOSED REDUCTION ANKLE Left 07/24/2022 Performed by Hortencia Swenson MD at [facility] EXPRESS ENDOSCOPIC SURGERY SINUS-ETHMOIDECTOMY, MAXILLARY ANTROSTOMY, SPHENOIDOTOMY Bilateral 10/14/2017 Performed by Yohan Tirado MD at [facility] HYSTERECTOMY INJECTION BLOCK NERVE MEDIAL BRANCH Bilat L 4/5,5/ Bilateral 07/04/2021 Performed by Galen Ramirez MD at [facility] INJECTION BLOCK NERVE MEDIAL BRANCH Bilat L 4/5,5/ Bilateral 03/14/2021 Performed by Galen Ramirez MD at [facility] INJECTION BLOCK SACROILIAC JOINT Right 11/14/2021 Performed by Galen Ramirez MD at [facility] OPEN REDUCTION INTERNAL FIXATION ANKLE TRIMALLEOLAR Left 08/18/2022 Performed by Vishal Christine MD at [facility] RADIOFREQUENCY ABLATION SPINAL Left L 4/5,5/1 Left 09/19/2021 Performed by Galen Ramirez MD at [facility] RADIOFREQUENCY ABLATION SPINAL right L 4/5,5/ Right 08/22/2021 Performed by Galen Ramirez MD at [facility] REMOVAL EXTERNAL FIXATOR LOWER EXTREMITY Left 08/18/2022 Performed by Vishal Christine MD at [facility] REMOVAL HARDWARE ANKLE Left 08/18/2022 Performed by Vishal Christine MD at [facility] RESECTION SUBMUCOSAL Bilateral 10/14/2017 Performed by Yohan Tirado MD at [facility] EXPRESS SINUS SURGERY 2015 TUBAL LIGATION Social History Socioeconomic History Marital status: Single Spouse name: Not on file Number of children: Not on file Years of education: Not on file Highest education level: Not on file Occupational History Not on file Tobacco Use Smoking status: Never Smokeless tobacco: Never Vaping Use Vaping Use: Never used Substance and Sexual Activity Alcohol use: No Drug use: No Sexual activity: Defer control/protection: Surgical Other Topics Concern Coffee Not Asked Tea Not Asked Carbonated Beverages Not Asked Chocolate Not Asked Social History Narrative Merged History Encounter Social Determinants of Health Financial Resource Strain: Low Risk (07/12/2020) Overall Financial Resource Strain (CARDIA) Difficulty of Paying Living Expenses: Not hard at all Food Insecurity: No Food Insecurity (08/12/2023) Hunger Screening Food Insecurity - Worry: Never True Food Insecurity - Inability: Never True Transportation Needs: No Transportation Needs (07/12/2020) PRAPARE - Transportation Lack of Transportation (Medical): No Lack of Transportation (Non-Medical): No Physical Activity: Inactive (07/12/2020) Exercise Vital Sign Days of Exercise per Week: 0 days Minutes of Exercise per Session: 0 min Stress: No Stress Concern Present (07/12/2020) [employer] [place] [employer] - Occupational Stress Questionnaire Feeling of Stress : Not at all Social Connections: Socially Isolated (07/12/2020) Social Connection and Isolation Panel [NHANES] Frequency of Communication with Friends and Family: More than three times a week Frequency of Social Gatherings with Friends and Family: More than three times a week Attends Anglican Services: Never Active Member of Clubs or Organizations: No Attends Club or Organization Meetings: Never Marital Status: Never Interpersonal Safety: Not At Risk (07/12/2020) Humiliation, Afraid, Rape, and Kick questionnaire Fear of Current or Ex-Partner: No Emotionally Abused: No Physically Abused: No Sexually Abused: No Housing Instability: Low Risk (07/29/2022) Housing Instability Housing Instability: No Physical exam Vitals: 08/12/23 1214 Temp: 36.1 C (97 F) Body mass index is 39.52 kg/m . General: Well-developed well-nourished Mentation: Alert and oriented. right LE: Shoe removed, skin clean dry and intact, significant ecchymosis and swelling of the foot present SILT s/s/sp/dp/pt, + motor fxn EHL, FHL Comparments & calves soft and compressible Palpable pulses with BCR x 5 Radiographic imaging: x-rays right foot personally reviewed and identify fractures of the base of the 2nd through 4th metatarsals ASSESSMENT: Reginald Burnett is a 42 y.o. female with right 2nd through 4th metatarsal fractures PLAN: Discussed with patient that her fractures are minimally displaced however due to the location we would like to have a CT scan completed to further evaluate and make sure the midfoot is not involved CT scan right foot ordered Patient to remain nonweightbearing to right lower extremity in a cam boot Patient should aggressively ice and elevate the right lower extremity for swelling control Calcium and vitamin-D supplementation Pain control - recommend Tylenol and ibuprofen as needed Will plan to follow up with the patient next week after CT scan Sharla Birch PA-C LEVEL OF SERVICE: Ortho MDM Diagnosis Complexity -: [4] MODERATE: 1 NEW problem, uncertain prognosis Ortho Data Level: [4] Ortho Data Moderate Level category 1 (need 3): review of external notes and review of results Ortho Tx/Test Risk Level (highest): [4] Ortho Moderate Risk Options: Prescription Drugs LEVEL OF MDM -: [4] MODERATE level based on above criteria. Sharla Birch PA-C 08/12/23 [id number] documented in this encounter [facility] 08-09-2023 Note XR FOOT RT MIN 3 VWS Procedure: Right foot radiographs performed Number of views:3 History:Injury and pain with swelling Comparison:None Findings: Fractures are seen involving the proximal diaphysis of the second third and fourth metatarsal. No other fractures or dislocations are seen. There are no osteolytic or osteoblastic lesions. There is diffuse soft tissue edema overlying the dorsum of the foot. Impression: Fractures involving the second through fourth metatarsal right foot Finalized by Mercedes Kern DO on 08/09/2023 11:32 AM [facility] 08-09-2023 Miscellaneous Notes Patient's mom called in and stated that patient was seen in ER today she broke her right foot. [employer] spoke with GE Magdaleno she looked at the xray stated that she wanted the doctor's opinion before we schedule her an appt. [employer] notified Bethel that we will give her a call back to schedule she stated that she was perfectly fine with that. Bethel can be reached at [phone]. Can you get her scheduled in [facility] on or Wednesday this week? Thank you! Spoke with patient's mom Bethel patient is scheduled for 08/12/2023 @ 12:15 pm [facility]23 Telephone encounter Note Patient's mom called in and stated that patient was seen in ER today she broke her right foot. [employer] spoke with GE Magdaleno she looked at the xray stated that she wanted the doctor's opinion before we schedule her an appt. [employer] notified Bethel that we will give her a call back to schedule she stated that she was perfectly fine with that. Bethel can be reached at [phone]. [facility] 08-09-2023 Telephone encounter Note Can you get her scheduled in [facility] on or Wednesday this week? Thank you! [facility] Work Phone: 08-09-2023 Telephone encounter Note Spoke with patient's mom Bethel patient is scheduled for 08/12/2023 @ 12:15 pm [facility] 07-20-2023 Miscellaneous Notes Patient's mother Bethel called in and stated that pt had an appt on 07/12/2023 with dermatology and they did a swab of her left leg near ankle and the result came back yesterday that pt had a staph infection she stated that pt is on an antibiotic and that if they wanted anything else to be done or any further questions needed she can be reached at [phone]. Please review and advise, thank you. Rash was swabbed by tax advisor and the patient was started on oral doxycycline, a topical and some medication to help with itching. If there is any worsening of the rash or open wounds at her incision they are instructed to contact our office. documented in this encounter [facility] 07-20-2023 Telephone encounter Note Patient's mother Bethel called in and stated that pt had an appt on 07/12/2023 with dermatology and they did a swab of her left leg near ankle and the result came back yesterday that pt had a staph infection she stated that pt is on an antibiotic and that if they wanted anything else to be done or any further questions needed she can be reached at [phone]. Please review and advise, thank you. [facility] 07-20-2023 Telephone encounter Note Rash was swabbed by tax advisor and the patient was started on oral doxycycline, a topical and some medication to help with itching. If there is any worsening of the rash or open wounds at her incision they are instructed to contact our office. [facility] Work Phone: 07-02-2023 Miscellaneous Notes BETHEL IS CALLING SINCE PT HAS CELLULITIS AND PAIN HER LEFT ANKLE SHE IS CONCERNED ABOUT THE HARDWARE SHE CAN BE REACHED AT [phone] Spoke with Mom. Patient has c/o of a rash on her Lower left ankle/venegas area. X 1 month. Patient is being treated by her PCP. Rash has gotten worse yesterday and went to [facility] yesterday. Treated for cellulitis-placed on Clindamycin and Atarax. Instructed Mom to continue antibiotics and Atarax Appt scheduled with Dr Christine for Wednesday07-05-2023 8:45 with left ankle Xrays. Instructed Mom if anything changes over the weekend to call our after hours service. documented in this encounter [facility] 07-02-2023 Telephone encounter Note BETHEL IS CALLING SINCE PT HAS CELLULITIS AND PAIN HER LEFT ANKLE SHE IS CONCERNED ABOUT THE HARDWARE SHE CAN BE REACHED AT [phone] [facility] 07-02-2023 Telephone encounter Note Spoke with Mom. Patient has c/o of a rash on her Lower left ankle/venegas area. X 1 month. Patient is being treated by her PCP. Rash has gotten worse yesterday and went to [facility] yesterday. Treated for cellulitis-placed on Clindamycin and Atarax. Instructed Mom to continue antibiotics and Atarax Appt scheduled with Dr Christine for Wednesday07-05-2023 8:45 with left ankle Xrays. Instructed Mom if anything changes over the weekend to call our after hours service. [facility] 06-14-2023 Evaluation note Encounter Date Diagnosis Assessment Notes Jun, Dietary surveillance and counseling (ICD-10 - Z71.3) Discussed in detail high-protein, high-fiber, low-fat nutrition plan favoring calorie deficit and lean tissue mass preservation. -Avoid regular soda -Food is medicine Jun, Severe obesity (BMI >= 40) (ICD-10 - E66.01) Consultation date 06-14-2023, weight (pounds): 239.1Plan is to take a weight centric approach to patient care in the treatment of excess adiposity and patient's weight related comorbidities.-D iscussed treatment options including lifestyle interventions, such as calorie reduction and physical activity, and use of medications as an adjunct to amplify adherence to healthy behavior change-Discussed benefits, risks and side effects of medication. After informed discussion, patient would like to proceedOrders:-I nitiate high-protein, high-fiber, low-fat nutrition plan -Patient will explore coverage for AOMs and get back to us -Food is medicine program -On Medicare. Disabled due to history of seizures-Follow up in clinic in 8 weeksThis note was created with voice recognition software. Please excuse errors in order packer or packager. Jun, Exercise counseling (ICD-10 - Z71.89) Absolute HGS at time of consultation (pounds): 54.5Discussed in detail exercise interventions to promote lean tissue mass preservation during calorie restriction. Jun, History of seizure (ICD-10 - Z87.898) Avoid Wellbutrin [employer] Other 01-09-2024 History of Present illness Narrative* Tomas Rodriguez PA-C - 05/18/2023 9:00 AM EST [facility] Office Note 05/18/2023 9:23 AM Patient info: Reginald Burnett is a 42 y.o. female Account No.: [id number] Acct: : 1980 PCP: NAHOMY WINN DO Chief Complaint: Patient, 42 year old female, presents today for follow up Neurological evaluation regarding dizziness. Last seen in the office on 03/23/23 Reginald is present in the office today by herself. Interval Hx: 03/23/23 Labs: Lamotrigine level was 4.0 (range: 1.0-13.0) Brain MRI with and without contrast was completed on 04/06/23. Status post right temporal craniotomy and partial right temporal lobectomy, with expected postoperative changes and volume loss. No epileptogenic focus identified. Questionable thalamic asymmetry, possibly related to prior surgery, similar to prior. Referred her to Physical Therapy for vestibular rehab. She attended 2-3 sessions and the dizziness resolved. The dizziness has not since returned. Reginald denies any recent seizures or seizure-like activity. 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 Prior Hx: Initial Consultation 03/23/23 Reginald complains of dizziness. Dizziness if further described as feeling off-balance. Exacerbated by bending over, rolling over in bed one way or the other, and turning to the right while walking. Onset was approximately 2 weeks ago and has stayed about the same since onset. Associated sxs include seeing dots in vision (sometimes). There has been no falls. There is no hx of significant head injury/trauma, GEOLOGICAL SCIENCE TEACHER infection, or stroke. 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 She underwent a partial right temporal lobectomy at the [facility] years ago. She remains on Lamotrigine 100 mg BID for seizure prophylaxis. Her last known seizure event was in 1990. Past Medical Hx: See EMR Social Hx: Tobacco: none ETOH: none Illicit Substances: none Family Hx: Mother: Asthma Father: Parkinsonism Siblings: --- Surgical Hx: See EMR Allergies: See EMR Review of Systems: Constitutional: Negative for fever, chills, sweats, or unintentional weight loss Eyes: Negative HENT: Negative Cardiovascular: Negative for chest pain and palpitations Respiratory: Negative for cough and shortness of breath Gastrointestinal: Negative for nausea, vomiting, abdominal pain and diarrhea Genitourinary: Negative for dysuria, urgency, frequency, or hematuria Musculoskeletal: - healing left ankle fracture Skin: Negative Neurological: - as noted in the HPI Psychiatric/Behavioral: - depression/bipolar disorder Endocrine: Negative Hem/Onc: Negative Allergy/Immunology: Negative Vitals: BP: 133/89 HR: 93 Weight: 100.2 kg Physical Exam: General: well groomed, appears stated age Neurological Exam: The patient is awake, alert, and attentive Speech and language are normal Flat affect, with normal orientation and cognition EOMI, PERRL, No gross visual field deficits Face is symmetric, Tongue protrudes midline Palate rises symmetrically with uvula midline Shoulder shrug is strong bilaterally Nose to finger testing is without dysmetria Upper Extremity Drift is (-) Fine motor skills are mildly decreased in the left hand Tremor: (-) Sensation is intact and symmetric in the extremities bilaterally DTR's are 1-2+ throughout Cano's sign (-) bilaterally Strength throughout the Upper Extremities is 5/5 Strength throughout the Lower Extremities is 5/5 Muscle Tone throughout the extremities is normal Romberg is (-) Gait is steady with normal base, stride, and bilateral arm swing Head turn from the left back to midline did not induce dizzy sxs. Head turn to the right back to midline did not induce dizzy sxs. Flexion and extension of the neck did not induce dizzy sxs. ASSESSMENT: Reginald is a 42 year old right hand dominant female with a hx of asthma, obesity, chronic pain syndrome, depression/bipolar disorder, and epilepsy s/p partial right temporal lobectomy who was experiencing dizziness secondary to a right peripheral vestibular source (right inner ear dysfunction), nowresolved. Seizures are stable. PLAN: Continue her current medical regimen, including Lamotrigine 100 mg BID Patient is unsure if she is going to follow here for check ups regarding epilepsy or not Follow up in the office in the future as needed Electronically Signed by: Tomas Rodriguez PA-C 05/18/23 0956 [facility]* Diagnosis Dizziness- Primary Dizziness and giddiness History of epilepsy Unspecified epilepsy without mention of intractable epilepsy [facility] noteNo [employer] Other Evaluation note* Diagnosis Closed fracture of ankle, trimalleolar, left, with routine healing, subsequent encounter- Primary documented in this encounter [facility] [facility]* Diagnosis Closed displaced fracture of second metatarsal bone of right foot, initial encounter- Primary Closed nondisplaced fracture of third metatarsal bone of right foot, initial encounter Closed nondisplaced fracture of fourth metatarsal bone of right foot, initial encounter Closed displaced fracture of second metatarsal bone of right foot, initial encounter Closed nondisplaced fracture of third metatarsal bone of right foot, initial encounter Closed nondisplaced fracture of fourth metatarsal bone of right foot, initial encounter documented in this encounter [facility] noteNo assessment information [facility] Work Phone: Evaluation note* Diagnosis Onset Date Resolution Status Severe obesity (BMI >= 40) a [facility] Work Phone: History general Narrative - Reported* Type Description Date Medical History asthma Medical History Depression Medical History Insomnia Medical History History of partial c omplex seizures -resolved with surgery Surgical History Brain surgery, right front lobe Surgical History Nasal polyps Surgical History Partial hysterectomy Surgical History Left ankle Fx repair Hospitalization History See above Hospitalization History Asthma [employer] Other InstructionsNot on filedocumented in this encounter [facility] filedocumented in this encounter [facility]Not on filedocumented in this encounter [facility]ructionsNot on filedocumented in this encounter [facility] System[facility]ructionsNot on filedocumented in this encounter [employer] [facility] Summary Purpose Family History No Family History Records Found Relationship Condition Age at Onset Recorded Date/T dino father Parkinson's disease Unknown Hypertension Unknown Not Specified Asthma Unknown Gastroesophageal reflux disease Unknown Diverticular disease Unknown Advance Directives No Advanced Directives Records FoundLatest Code Status on File Code Status Date Activated Date Inactivated Comments Full Code 07/25/2022 9:15 PM 07/29/2022 7:28 PM Code Status History Code Status Date Activated Date Inactivated Comments Full Code 07/24/2022 2:03 AM 07/25/2022 8:55 PM Full Code 07/14/2020 7:26 PM 07/16/2020 6:02 PM Full Code 07/12/2020 9:19 AM 07/13/2020 2:44 PM Full Code 11/09/2019 9:35 AM 11/10/2019 5:08 PM Latest Code Status on File Code Status Date Activated Date Inactivated Comments Full Code 07/25/2022 9:15 PM 07/29/2022 7:28 PM Code Status History Code Status Date Activated Date Inactivated Comments Full Code 07/24/2022 2:03 AM 07/25/2022 8:55 PM Full Code 07/14/2020 7:26 PM 07/16/2020 6:02 PM Full Code 07/12/2020 9:19 AM 07/13/2020 2:44 PM Full Code 11/09/2019 9:35 AM 11/10/2019 5:08 PM Advance Directive Response Recorded Date/ Time Advance Directives No July 12 9:14pm Reason for Referral Specialty Diagnoses / Procedures Referred By Zelalem merlos Referred To Contact Radiology Diagnoses Closed displaced fracture of second metatarsal bone of right foot, initial encounter Closed nondisplaced fracture of third metatarsal bone of right foot, initial encounter Closed nondisplaced fracture of fourth metatarsal bone of right foot, initial encounter Procedures CT foot right without contrast Sharla Birch, PA-C [address] [address] [facility] [address] [place] [address] Phone: [phone] Referral ID Status Reason Start Date Expiration Date Visits Re quested Visits Authorized [id number] Closed 08/12/2023 09/11/2023 1 1 Chief Complaint and Reason for Visit Chief Complaint Obesity L20.89 Chief Complaint L20.89 BH Reason for Visit Severe obesity (BMI >= 40) Chief Complaint BH Reason for Visit Severe obesity (BMI >= 40) Additional Source Comments INFORMATION SOURCE (unrecogn ized section and content) DATE CREATED AUTHOR 09/11/2018 [facility] DATE CREATED AUTHOR AUTHOR'S ORGANIZ ATION 07/31/2020 [facility] DATE CREATED AUTHOR AUTHOR'S ORGANIZ ATION 05/12/2022 [facility] DATE CREATED AUTHOR AUTHOR'S ORGANIZ ATION 04/20/2023 [facility] EPIC DATE CREATED AUTHOR AUTHOR'S ORGANIZ ATION 09/23/2023 [facility] DATE CREATED AUTHOR AUTHOR'S ORGANIZ ATION 10/02/2023 [facility] DATE CREATED AUTHOR AUTHOR'S ORGANIZ ATION 03/07/2024 [facility] DATE CREATED AUTHOR AUTHOR'S ORGANIZ ATION 04/22/2024 [facility] Reason for Visit (unrecogniz ed section and content) Reason Comments Follow-up Patient presents for follow up of dizziness with no concerns. Reason Comments Establish Care Follow-up Care Teams (unrecognized sec tion and content) Team Status: Active Member Role Status Dates Nahomy Winn DO Primary Care Provider Active Team Status: Inactive Member Role Status Dates Nahomy Winn DO Primary Care Provider Active Start: July 12, 2023 End: July 12, 2023 Margarita Rolon PA-C Attending Provider Active Start: July 12, 2023 End: July 12, 2023 Team Status: Inactive Member Role Status Dates Nahomy Winn DO Primary Care Provider Active Start: August 25, 2023 End: August 25, 2023 RILANDA Dailey Attending Provider Active Start: August 25, 2023 End: August 25, 2023 Team Status: Active Member Role Status Dates Ross Ureña MD Attending Provider Active Start: September 16, 2023 Team Status: Inactive Member Role Status Dates Nahomy Winn DO Primary Care Provider Active Start: October 06, 2023 End: October 06, 2023 Enoch Nguyen DO Attending Provider Active St art: October 06, 2023 End: October 06, 2023 Wall Cleaner Relationship Specialty Start Date End Date Nahomy Winn DO [address] [place] [address] PCP - General Family Medicine 08/04/22 Wall Cleaner Relationship Specialty Start Date End Date Nahomy Winn DO [address] [place] [address] PCP - General Family Medicine 08/04/22 Wall Cleaner Relationship Specialty Start Date End Date Nahomy Winn DO [address] [place] [address] PCP - General Family Medicine 08/04/22 Wall Cleaner Relationship Specialty Start Date End Date Nahomy Winn DO [address], [place] [id number] PCP - General Family Medicine 08/04/22 Team Status: Active Member Role Status Dates Nahomy Winn DO Primary Care Provider Active Start: June 14, 2023 Enoch Nguyen DO Attending Provider Active St art: June 14, 2023 Goals (unrecognized section and content) Goals may be documented in a n alternate section FOR RECORDS PERTAINING TO PATIENTS WHO ARE [...] BE BASED ON THE PRIMARY CLINICAL RECORDS. [facility] [employer] [facility]. provides no warranty or guarantee of the accuracy or completeness of information in this document.
== END 2024-04-24 21:55 | disposition home or self-care (01) ==
LOC: LAB 21:54
PROVIDERS: Family Provider Family Medicine; Visit Provider Physician Assistant
DX: Z01.419 Encounter for gynecological examination (general) (routine) without abnormal findings (principal)
CPT/HCPCS: 87624; 88175

== ENCOUNTER 2024-06-05 14:04 | Outpatient (OUT) | payer MEDICARE, SELFPAY ==
--- NOTE | 2024-06-05 14:11 | MM_ITS ---
Patient Name: REGINALD BURNETT MR#: [id number] : 1980 Exam Date: 06/05/2024 Ordering Doctor: DR Alexey Etienne . RADIOLOGY REPORT PROCEDURE: MM TOMOSYNTHESIS SCREENING BI COMPARISON: MM TOMOSYNTHESIS SCREENING BI, 05/06/2023. MG MAMM SCREEN 3D ANTONIO CAD, 04/30/2022. INDICATIONS: Screening Calculator Name NCI Breast Cancer Risk Assessment Tool 5 Year Breast Cancer Risk 0.90% Lifetime Breast Cancer Risk 10.70% Personal Breast Cancer No Personal Ovarian Cancer No Treatments None Family Cancers None LOCATION: [facility] BREAST COMPOSITION: There are scattered areas of fibroglandular density. FINDINGS: DIAGNOSTIC CATEGORY 2--BENIGN FINDING: RIGHT BREAST: No significant suspicious finding. Scattered benign-appearing calcifications are present. Scattered benign-appearing lymph nodes are present. No significant change has occurred. LEFT BREAST: No significant suspicious finding. No significant change has occurred. RECOMMENDATIONS: ROUTINE MAMMOGRAM AND CLINICAL EVALUATION IN 12 MONTHS. PLEASE NOTE: A NORMAL MAMMOGRAM DOES NOT EXCLUDE THE POSSIBILITY OF BREAST CANCER. A CLINICALLY SUSPICIOUS PALPABLE LUMP SHOULD BE BIOPSIED. Dictated by: Jason Hagan M.D. on 06/05/2024 at 16:16 Approved by: Jason Hagan M.D. on 06/05/2024 at 16:18
--- OUTSIDE RECORDS SUMMARY | 2024-06-05 14:14 | XMS_ITS | CCD ---
Author Organization [facility] Care Team Providers Care Waste Hand Name Role Phone BERENICE, DR HESTER Admitting Unavailable BERENICE, DR HESTER Attending Unavailable BERENICE, DR HESTER Primary Care Unavailable BERENICE, DR HESTER Consulting Unavailable RUMSCHLAG, NAHOMY Admitting Unavailable RUMSCHLAG, NAHOMY Attending Unavailable BERENICE, DR HESTER Primary Care Unavailable POLICAROMARY LOU Consulting Unavailable RUMSCHLAG, NAHOMY Consulting Unavailable RUMSCHLAG, NAHOMY Admitting Unavailable RUMALFREDOLAGNAHOMY Attending Unavailable BERENICE, DR HESTER Primary Care Unavailable RUMSCHLAG, NAHOMY Consulting Unavailable BERENICE, DR HESTER Admitting Unavailable BERENICE, DR HESTER Attending Unavailable BERENICE, DR HESTER Primary Care Unavailable BERENICE, DR HESTER Consulting Unavailable ZIEBER, DR MARILU Serna Consulting Unavailable Rumschlag , Nahomy K Primary Care Provider Sulma Braga Unavailable Enoch Nguyen Unavailable DO Nahomy Winn Primary Care Provider DO Enoch Nguyen Attending Provider PUSHPA Rolon Attending Provider RUMSCHLAG, NAHOMY K [...] Unavailable RUMSCHLAG, NAHOMY K Primary Care Unavailable KEESHA SHARLA N Attending Unavailable TANK, VISHAL Attending Unavailable RUMSCHLAG, NAHOMY K Referring Unavailable RUMSCHLAG, NAHOMY K Primary Care Unavailable DANIE MCGINNIS R Referring Unavailable RUMSCHLAG, NAHOMY K Primary Care Unavailable TANKVISHAL Attending Unavailable RUMSCHLAG, NAHOMY K Referring Unavailable RUMSCHLAG, NAHOMY K Primary Care Unavailable HORTENCIA CAMARA Referring Unavailable EVANS, REGGIE N Primary Care Unavaila ble TANK, VISHAL Attending Unavailable RUMSCHLAG, NAHOMY K Referring Unavailable EVANS, REGGIE N Primary Care Unavaila ble TANK, VISHAL Referring Unavailable RUMSCHLAG, NAHOMY K Primary Care Unavailable VISHAL CHRISTINE Attending Unavailable RUMSCHLAG, NAHOMY K Referring Unavailable RUMSCHLAG, NAHOMY K Primary Care Unavailable Rumschlag, DO Nahomy Primary Care Provider MD Ross Ureña Attending Provider [phone] Unavailable Primary Care Provider Unavailabl BRANDY Schmitt Attending Unavailable Rumschlag DO, Nahomy Vicente Primary Care Unavail able Xenia LONDONO, Lucie Hinson Attending Unavail able Adonis Dozier MD, [facility] Primary Care Unavail able Xenia LONDNOO, Lucie Hinson Attending Unavail able Rumschlag DO, Nahomy Vicente Primary Care Unavail able Lucie Michaels MD Attending Unavail able Rumschlag DO, Nahomy Vicente Primary Care Unavail able Xenia LONDONO, Lucie Hinson Attending Unavail able Rumschlag DO, Nahomy Vicente Primary Care Unavail able Xenia LONDONO, Lucie Hinson Attending Unavail able Gianluca GRIFFITH, Lima Zaragoza Attending U navailable Rumschlag DO, Nahomy Vicente Primary Care Unavail able Rumschlag DO, Nahomy Vicente Primary Care Unavail able Xenia LONDONO, Lucie Hinson Attending Unavail able Gianluca GRIFFITH, Lima Zaragoza Attending U navailable Rumschlag DO, [...] LONDONO, Lucie Hinson Attending Unavail able Gianluca DIETITIAN RESEARCH-INTERNATIONAL EXCHANGE COORDINATOR, Lima Zaragoza Attending U navailable Rumschlag DO, Nahomy Vicente Primary Care Unavail able Rumschlag DO, Nahomy Vicente Primary Care Unavail able Xenia LONDONO, Lucie Hinson Attending Unavail able Gianluca DIETITIAN RESEARCH-INTERNATIONAL EXCHANGE COORDINATOR, Lima Zaragoza Attending U navailable Rumschlag DO, Nahomy Vicente Primary Care Unavail able Enoch Nguyen Admitting Unavailable Enoch Nguyen Attending Unavailable Rumschlag, Nahomy Primary Care Unavailable Rumschlag, Nahomy Primary Care Unavailable Margarita Rolon Admitting Unavailable Margarita Rolon Attending Unavailable Ross Ureña Admitting Unavailab le Ross Ureña Attending Unavailab le Allergies Allergy Classification Reported Allergen(s) Allergy Type Date of Onset Reaction(s) Facility (8 sources) dog skin extract; Translations: [DOG EPITHELIUM ALLERGENIC EXTRACT] Drug Allergy 1 [facility] (11 sources) Penicillin; Translations: [PENICILLIN] Drug Allergy 1 shortness of breath [facility] (8 sources) Penicillins; Translations: [PENICILLINS] Propensity to adverse reactions to drug 0 Shortness Of Breath [facility] (5 sources) Cat Dander; Translations: [CAT DANDER] Propensity to adverse reactions to drug [facility] Penicillin G Drug Allergy 3 [facility] (3 sources) Penicillins Drug Intolerance 0 Shortness of breath [facility] (3 sources) Dog Epithelium (Canis Lupus Familiaris) Propensity to adverse reactions 1 [facility] Work Phone: (2 sources) Cat Hair Extract Propensity to adverse reactions 4 [facility] (1 source) Penicillins Drug allergy (disorder) 4 [facility] Medications Current Medications Medication Drug Class(es) [...] for pain. 180 tablet 2 07/30/2022 Active [id number] 200 actuat albuterol 0.09 mg/actuat metered dose [...] 08/14/2021 Active ARIPiprazole 10 mg oral tablet (11 sources) Atypical Antipsychotic ARIPipraz ole (Abilify) 10 MG tablet 1 (one) time each day at the same time. Active aspirin 81 mg delayed release oral tablet (8 sources) Platelet Aggregation Inhibitor, Nonsteroidal Anti-inflammatory Drug Start: 10-06-2023 Aspirin (Adult Low Dose Aspirin) 81 mg tablet,delayed release (DR/EC) Active 81 MG PO Daily October 06, 2023 12:00am BABY ASPIRIN PO Take by mouth. Active take 1 tablet by mouth in the [...] Days Active baclofen 20 mg oral tablet (9 sources) gamma-Aminobutyric Acid-ergic Agonist Start: 06-26-2022 baclofen (LIORESAL) 20 mg tablet Start: 04-09-2022 take 1 tablet by tricia th twice daily as needed baclofen (Lioresal) 10 MG tablet TAKE 1 TABLET BY MOUTH TWICE DAILY NEEDED FOR 30 DAYS 04/09/2022 Active 1 ml benralizumab 30 mg/ml prefilled syringe (2 sources) Interleukin-5 Receptor alpha-directed Cytolytic Antibody Start: 10-06-2023 Benralizumab (Fasenra) 30 mg/mL syringe Active MG SUBCUT October 06, 2023 12:00am biotin 10 mg oral tablet (2 sources) take 1 tablet by mouth every twenty-four hours Biotin 71713 MCG 1 tablet Orally Once a day Active calcium citrate 950 mg oral tablet (6 sources) Start: 07-29-2022 take 2 tablets by mouth three times daily calcium citrate (CALCITRATE) 200 mg (950 mg) tablet Take 2 tablets (400 mg total) by mouth 3 (three) times a day. 90 tablet 0 07/29/2022 Active cetirizine hydrochloride 10 mg oral tablet (12 sources) Histamine-1 Receptor Antagonist Start: 09-14-2023 take 10 mg by mouth once daily [...] 07/30/2022 Active citalopram 20 mg oral tablet (13 sources) Serotonin Reuptake Inhibitor Start: 10-06-2023 take 20 mg by mouth once daily Citalopram Active 20 MG PO Daily October 06, 2023 12:00am Start: 11-15-2019 citalopram (Ce Nelson) 20 mg tablet Take 1 tablet (20 mg total) by mouth daily. Can resume once zithromax course complete. 0 11/15/2019 Active citalopram (Inés XA) 10 MG tablet 1 (one) time each day at the same time. Active clindamycin 150 mg oral capsule (2 sources) Lincosamide Antibacterial Start: 07-01-2023 End: 07-08-2023 take 2 capsules by mouth three times daily clindamycin (CLEOCIN) 150 mg capsule Take 2 capsules (300 mg total) by mouth 3 (three) times a day for 7 days. 42 capsule 0 07/01/2023 07/08/2023 Active dicyclomine hydrochloride 20 mg oral tablet (2 sources) Anticholinergic Start: 04-24-2024 End: 05-24-2024 dicyclomine (Bentyl) 20 MG tablet Indications: Abdominal cramping Take 1 tablet (20 mg) by mouth in the morning and 1 tablet (20 mg) at noon and 1 tablet (20 mg) in the evening and 1 tablet (20 mg) before bedtime. Take before meals. 120 tablet 04/24/2024 05/24/2024 Active diphenhydrAMINE hydrochloride 50 mg oral capsule (6 sources) Histamine-1 Receptor Antagonist Start: 08-12-2022 diphenhydrAMINE (BENADRYL) 50 mg capsule 1 capsule (50 mg total) nightly as needed. 0 08/12/2022 Active [id number] 0.3 ml EPINEPHrine 1 mg/ml auto-injector (3 sources) alpha-Adrenergic Agonist, beta-Adrenergic Agonist, Catecholamine EPINEPHrine (EPIPEN) 0.3 mg/0.3 mL auto-injector 0.3 mL (0.3 mg total) as needed. 0 Active estrogens, conjugated (mcc) 0.625 mg/ml vaginal cream (2 sources) Estrogen Start: 04-24-2024 End: 05-24-2024 Estrogens Conjugated (Premarin) 0.625 MG/GM cream Indications: Postmenopausal HRT (hormone replacement therapy) Insert 1 g into the vagina Daily Insert 1/2 applicator at bedtime nightly for 2 weeks then twice a week thereafter 1 g 3 04/24/2024 05/24/2024 Active fluticasone propionate 0.05 mg/actuat metered dose nasal spray (2 sources) Corticosteroid Start: 04-20-2024 fluticasone (Flonase) 50 MCG/ACT nasal spray 04/20/2024 Active Fluticasone Furoate-Vilanterol (10 sources) Corticosteroid, beta2-Adrenergic [...] 07/30/2022 Active lamoTRIgine 100 mg oral tablet (13 sources) Mood Stabilizer, Anti-epileptic Agent Start: 10-06-2023 take 100 mg by mouth once daily Lamotrigine Active 100 MG PO Daily October 06, 2023 12:00am take 1 tablet by mouth twice alexa ly lamoTRIgine (LaMICtal) 100 MG tablet take 1 tablet (100MG) by ORAL route 2 times every day Oral Active take 1 tablet by tricia th in [...] 05/18/2022 Active montelukast 10 mg oral tablet (12 sources) Leukotriene Receptor Antagonist Start: 04-16-2024 take 1 tablet by mouth once daily montelukast (Singulair) 10 MG tablet Take 10 mg by mouth Daily 04/16/2024 Active Start: 10-06-2023 take 10 mg by mouth [...] 14 tablet 0 08/09/2023 08/16/2023 Active omeprazole 40 mg delayed release oral capsule (12 sources) Proton Pump Inhibitor Start: 03-09-2024 take 1 capsule by mouth once daily omeprazole (PriLOSEC) [address] capsule Take 40 mg by mouth Daily 03/09/2024 Active Start: 10-06-2023 take 20 mg by mouth once daily Omeprazole Active 20 MG PO Daily October 06, 2023 12:00am Start: 05-22-2022 take 1 tablet by tricia once daily omeprazole (PriLOSEC OTC) 20 mg tablet,delayed release (DR/EC) TAKE 1 TABLET BY MOUTH ONCE DAILY FOR 90 DAYS 0 05/22/2022 Active take 1 capsule by [facility] once daily Omeprazole 20 MG 1 [...] 0 Active take 1 tablet by tricia once daily at bedtime traZODone HCl 100 [...] Problem Classification Problem Date Documented Date Episodic/Chronic Abdominal pain (2 sources) Finding of sensation of abdomen; Translations: [Unspecified abdominal pain] 04-24-2024 Episodic Allergic reactions (1 source) Other atopic dermatitis; [...] [ENC SCREENING HUMAN PAPILLOMAVIRUS] Onset: 04-18-2022 Episodic Menopausal disorders (2 sources) Postmenopausal state; Translations: [Hormone replacement therapy] 04-24-2024 Episodic Mood disorders (6 sources) Bipolar I [...] conditions (not mental disorders or infectious disease) (10 sources) Encounter for screening mammogram for malignant [...] Test Name Value Interpretation Reference Range Facility Provider Letteron 05-04-2024 Provider Letter Nahomy Winn DO [address] [place] [address] Re: Reginald Burnett Date of Visit: 04/19/2024 Dear Nahomy Winn DO, Thank you for the pleasure of contributing to this patient's care. Please see attached office note for my assessment and recommendations from today's visit. Let me know if you have any questions or concerns. Sincerely, Lima Hough APRN-INTERNATIONAL EXCHANGE COORDINATOR C C Providers: The following document(s) were included in the letter: April 19, 2024 14:29:54 EST - (04/19/2024) Office Visit Note Normal [facility] Allergy/Immunology Office/Cl inic Noteon 04-19-2024 Allergy/Immunology Office/Clinic Note Chief Complaint 4 month follow up for CAR and Asthma History of Present Illness Reginald is a 43 year old female reporting to our office today for a 4 month follow up for CAR and Asthma. CAR: Patient complains of post nasal drip. She denies congestion and runny nose. She is not taking any oral antihistamines or nasal sprays at this time. Asthma: Patient denies any coughing, wheezing and shortness of breath. She is taking Breo 1 puff daily and Albuterol as needed. She reports she has not needed to use Albuterol since the last office visit. She is not waking up at night due to coughing, wheezing and shortness of breath. She has not been seen in the ER/UC and has not needed antibiotics or oral steroids for breathing symptoms since last office visit. Patient reports she feels like the Fasenra is still helping her asthma symptoms. She denies any bothersome side effects, and she denies any localized reactions at the injection site. ACT: 25 Peak flow: 330 70% of Expected: 292 12/15/23: Assessment/Plan 1. Chronic allergic rhinitis due to [...] her Breo, Singulair, and albuterol as needed. [1] Review of Systems General Symptoms Appetite change: No Fatigue: No Weakness: No Any frequent/recurrent infections: No Respiratory Symptoms Cough: No Shortness of breath: No Sputum production: No Wheezing: No EENT Symptoms Nasal discharge: No Nasal congestion: No Postnasal drainage: Yes Sore throat: No Any itching/watering/redn ess to eyes: No Nosebleeds: No Cardiovascular Symptoms Chest pain pressure: No Skin Symptoms Itching: No Rash: No Physical Exam Vitals & Measurements HR: 80 (Peripheral) BP: 108/74 HT: 168 cm WT: 93.1 kg WT: 93.1 kg (Dosing) BMI: 32.99 General: Alert, well nourished, no acute distress. [...] and affect. Additional Vitals BP Position/Location: Sitting, Left arm Assessment/Plan 1. Severe persistent asthma Chronic respiratory symptoms have significantly improved since starting Fasenra and allergy immunotherapy injections. Reginald has not tapered off Fasenra as she forgot she was instructed to do so at the last visit. She states that she is willing to trial off as directed. 2. Chronic allergic rhinitis due to fungal spores Chronic nasal and sinus symptoms are well-controlled on current therapies. Reginald is tolerating allergy immunotherapy injections well and has noticed a significant improvement of her overall symptoms. She states that postnasal drip remains her most bothersome symptom but is much more manageable than it has been in the past. Plan - Taper Fasenra down to 9 weeks, then 10 weeks, then 11 weeks..etc (if symptoms increase then she will go back to every 8 weeks.) - Continue Breo inhaler - Continue albuterol as needed - Continue Singulair daily -Continue allergy shots - Follow up 4 months Time Spent with the Patient I have [...] nasal spray, 1 sprays, Nasal, BID, 5 refills, in each nostril benzonatate 200 mg oral capsule, 30 EA, TAKE 1 CAPSULE BY MOUTH THREE TIMES DAILY FOR 10 DAYS Breo Ellipta 200 mcg-25 mcg/inh inhalation powder, 1 puffs, Inhale, Daily, 2 refills cetirizine 10 mg oral tablet, 10 mg= 1 tabs (more content not included)... Normal [facility] Allergy/Immunology Office/Cl inic Noteon 12-15-2023 Allergy/Immunology Office/Clinic [...] note was created with the aid of Resonate voice recognition software. Every reasonable effort was [...] Allergic rhinitis (more content not included)... Normal [facility] XR FOOT RT MIN 3 [...] Ramos MD on 10/02/2023 11:32 AM Normal [facility] XR CHEST 2 VWSon 09-21-2023 XR CHEST [...] Frederick MD on 09/21/2023 1:55 PM Normal [facility] SARS/FLU A+B/RSV by NAAT/Mol ecularon 09-13-2023 SARS/FLU A+B/RSV by NAAT/Molecular FLU A [...] operators who are performing tests using either BeatDeck DX or Countercepts systems and is limited to laboratories that [...] repeat. Fact Sheet for Healthcare Providers: https://www.fda.gov/m edia/290155/download Fact Sheet for Patients: https://www.fda.gov/m edia/244579/download [facility] Comment on above: Performed By: #### C OVFLR #### [facility] ([id number]) [address], [address] [place] [address] XR FOOT RT MIN 3 VWSon 08-29 [...] Alcantara MD on 08/30/2023 2:18 PM Normal [facility] CT FOOT RT WO CONTon 024 CT [...] Cade Serna MD on 08/12/2023 5:14 PM Normal [facility] CT Foot - right WO contrasto n 08-12-2023 History: Trauma 13 days ago [...] Cade Serna MD on 08/12/2023 5:14 PM SECTRAPACS Cade Serna MD - 08/12/2023 History: Trauma [...] Cade Serna MD on 08/12/2023 5:14 PM [facility] Radiology Study observation (narrative) [facility] CT Foot - right WO contrastO rdered By: Cade Serna on [facility]-12-2023 [facility] Work Phone: Bacteria identified Aer cx N om (Unsp spec)Ordered By: Margarita Rolon on 07-12-2023 Superficial Wound Culture Staphylococcus aureus [facility] Superficial Wound Cultureon 07-12-2023 Superficial Wound Culture [...] RESISTANT TO ALL B-LACTAM DRUGS. PERFORMED BY: [place] [address] PATHOLOGIST FISHING TACKLE REPAIRER VALENTIN AYALA M.D. Normal [facility] Comment on above: Performed By: #### [facility] #### [address] XR ANKLE LT MIN 3 VWSon 06-11 XR ANKLE LT MIN 3 VWS XR [...] Carpenter DO on 07/05/2023 4:00 PM Normal [facility] Provider Letteron 07-01-2023 Provider Letter Nahomy Winn DO [address] [place] [address] Re: Reginald Burnett Date of Visit: 06/24/2023 [...] EST - (06/24/2023) Office Visit Note Normal [facility] Allergy/Immunology Office/Cl inic Noteon 06-24-2023 [...] minutes when she receives her allergy immunotherapy. 10/26/23: Assessment/Plan 1. Severe persistent asthma Chronic, stable on current therapies. -Continue Breo daily -Continue albuterol as needed for cough, shortness of breath, wheeze -Follow-up with pulmonology as previously planned -Continue Nucala monthly 2. Chronic allergic rhinitis due to fungal spores Chronic nasal symptoms are well controlled on current therapies. Reginlad is no longer requiring daily oral antihistamines to control symptoms. -Continue Zyrtec daily as needed on days -Continue nasal sprays as needed -Continue [...] Nasal, BID (more content not included)... Normal [facility] Cytology Cervical or vaginal smear or scraping studyon 04-19-2023 [facility] FREE T4on 05-12-2022 Free T4 [Mass/Vol] 1.07 ng/dL Normal 0.76-1.46 [facility] Comment on above: Performed By: #### F T4 #### [facility] [address] [place] [address] Dr. Brandon Frank HEMOGRAM AND PLATELon 2022 Hematocrit (Bld) [Volume fraction] 41.7 % Normal 36.0-48.0 [facility] Comment on above: Performed By: #### H H #### [facility] [address] [place] [address] Dr. Brandon Frank Hemoglobin (Bld) [Mass/Vol] 13.7 g/dL Normal 12.0-16.0 [facility] Comment on above: Performed By: #### H H #### [facility] [address] [place] [address] Dr. Brandon Frank MCH (RBC) [Entitic mass] 29.0 pg Normal 26.7-34.0 [facility] Comment on above: Performed By: #### H H #### [facility] [address] [place] [address] Dr. Brandon Frank MCHC (RBC) [Mass/Vol] 32.9 g/dL Normal 29.9-35.2 [facility] Comment on above: Performed By: #### H H #### [facility] [address] [place] [address] Dr. Brandon Frank MCV (RBC) [Entitic vol] 88.3 fL Normal 81.0-99.0 [facility] Comment on above: Performed By: #### H H #### [facility] [address] [place] [address] Dr. Brandon Frank PLT 266 103/ul Normal 150-450 [facility] Comment on above: Performed By: #### H H #### [facility] [address] [place] [address] Dr. Brandon Frank RBC 4.72 106/ul Normal 4.20-5.40 [facility] Comment on above: Performed By: #### H H #### [facility] [address] [place] [address] Dr. Brandon Frank WBC 6.5 103/ul Normal 4.0-11.0 [facility] Comment on above: Performed By: #### H H #### [facility] [address] [place] [address] Dr. Brandon Frank PROF 14(COMP METB)on 023 Albumin [Mass/Vol] 3.4 g/dL Normal 3.4-5.0 [facility] Comment on above: Performed By: #### T SH, CMP #### [facility] [address] [address] [address] Brandon Frank Albumin/Globulin [Mass ratio] 0.8 {ratio} Normal [facility] Comment on above: Performed By: #### T SH, CMP #### [facility] [address] [address] [address] Brandon Frank ALP [Catalytic activity/Vol] 82 U/L Normal 46-116 [facility] Comment on above: Performed By: #### T SH, CMP #### [facility] [address] [address] [address] Brandon Frank ALT [Catalytic activity/Vol] 53 U/L Normal 14-59 [facility] Comment on above: Performed By: #### T SH, CMP #### [facility] [address] [place] [address] Dr. Brandon Frank Anion gap [Moles/Vol] 12.6 mmol/L Normal [facility] Comment on above: Performed By: #### T SH, CMP #### [facility] [address] [place] [address] Dr. Brandon Frank AST [Catalytic activity/Vol] 37 U/L Normal 15-37 [facility] Comment on above: Performed By: #### T SH, CMP #### [facility] [address] [place] [address] Dr. Brandon Frank Bilirubin [Mass/Vol] 0.8 mg/dL Normal 0.2-1.0 [facility] Comment on above: Performed By: #### T SH, CMP #### [facility] [address] [place] [address] Dr. Brandon Frank Calcium [Mass/Vol] 8.9 mg/dL Normal 8.5-10.1 [facility] Comment on above: Performed By: #### T SH, CMP #### [facility] [address] [place] [address] Dr. Brandon Frank Chloride [Moles/Vol] 104 mmol/L Normal 98-107 [facility] Comment on above: Performed By: #### T SH, CMP #### [facility] [address] [address] [address] Brandon Frank CO2 [Moles/Vol] 25.8 mmol/L Normal 21.0-32.0 [facility] Comment on above: Performed By: #### T SH, CMP #### [facility] [address] [address] [address] Brandon Frank Creatinine [Mass/Vol] 0.81 mg/dL Normal 0.55-1.02 [facility] Comment on above: Performed By: #### T SH, CMP #### [facility] [address] [place] [address] Dr. Brandon Frank EGFR-AF [place]OUTH [place]OREAN >60 Normal >=60 [facility] Comment on above: Performed By: #### T SH, CMP #### [facility] [address] [place] [address] Dr. Brandon Frank EGFR-NON AF [place]ORE[place] >60 Normal >=60 [facility] Comment on above: Performed By: #### T SH, CMP #### [facility] [address] [place] [address] Dr. Brandon Frank Globulin (S) [Mass/Vol] 4.1 g/dL Normal [facility] Comment on above: Performed By: #### T SH, CMP #### [facility] [address] [place] [address] Dr. Brandon Frank Glucose [Mass/Vol] 107 mg/dL Critically high 74-106 [facility] Comment on above: Performed By: #### T SH, CMP #### [facility] [address] [place] [address] Dr. Brandon Frank Potassium [Moles/Vol] 4.4 mmol/L Normal 3.5-5.1 [facility] Comment on above: Performed By: #### T SH, CMP #### [facility] [address] [place] [address] Dr. Brandon Frank Protein [Mass/Vol] 7.5 g/dL Normal 6.4-8.2 [facility] Comment on above: Performed By: #### T SH, CMP #### [facility] [address] [address] [address] Brandon Frank Sodium [Moles/Vol] 138 mmol/L Normal 136-145 [facility] Comment on above: Performed By: #### T SH, CMP #### [facility] [address] [address] [address] Brandon Frank Urea nitrogen [Mass/Vol] 10.0 mg/dL Normal 7.0-18.0 [facility] Comment on above: Performed By: #### T SH, CMP #### [facility] [address] [address] Dr. Brandon Frank Urea nitrogen/Creatinine [Mass ratio] 12.3 mg/mg Normal [facility] Comment on above: Performed By: #### T XENA, CMP #### [facility] [address] [address] [address] Brandon Frank TSHon 05-12-2022 TSH 1.593 uIU/mL Normal 0.358-3.740 [facility] Comment on above: Performed By: #### T XENA, CMP #### [facility] [address] [address] [address] Brandon Frank MG MAMM SCREEN 3D ANTONIO CADon 04-30-2022 MG MAMM SCREEN 3D ANTONIO CAD Patient: REGINALD BURNETT Exam Date: 04/30/2022 : 1980 Gender:F Ordering : DR ALEXEY ETIENNE . Admission #: [id number] Family : Order #: [id number] CLICK HERE TO VIEW EXAM RADIOLOGY REPORT PROCEDURE: MAMMOGRAM SCREENING 3D BILATERAL CAD COMPARISON: None. INDICATIONS: Screening for malignant neoplasm of breast Calculator Name NCI Breast Cancer Risk Assessment Tool 5 Year Breast Cancer Risk 0.70% Lifetime Breast Cancer Risk 10.90% Personal Breast Cancer No Personal Ovarian Cancer No Treatments None Family Cancers None LOCATION: [facility] BREAST COMPOSITION: Scattered areas fibroglandular density. [...] Hagan M.D. on 04/30/2022 at 15:42 Normal [facility] US TANNA DOP LEG RTon 04-30-20 22 US TANNA DOP LEG RT Begin Addendum # 1 There are no images provided of the right groin, per swaging machine adjuster there was no evidence of an inguinal [...] IMPRESSION: No evidence for DVT. Normal [facility] PAP ACOG PANEL 2: 30 to 65on 04-21-2022 . . Normal [facility] Comment on above: Result Comment: Perf ormed at: WB Performed By: #### 4 [id number] #### [facility] [address] [address] [address] Brandon Frank Age Gdln ACOG Testing 30-65 Normal [facility] Comment on above: Performed By: #### 4 [id number] #### [facility] [address] [address] [address] Brandon Frank DIAGNOSIS: Comment Normal [facility] Comment on above: Result Comment: NEGA TIVE FOR INTRAEPITHELIAL LESION OR MALIGNANCY. PREDOMINANCE OF COCCOBACILLI CONSISTENT WITH SHIFT IN VAGINAL ADI IS PRESENT. Performed at: WB Performed By: #### 4 [id number] #### [facility] [address] [address] [address] Brandon Frank HPV Aptima Negative Normal Negative [facility] Comment on above: Result Comment: This nucleic acid amplification test detects fourteen high-risk HPV types (16,18,31,33,35,39,45,51,52,56,58,59,66,68) without differentiation. Performed at: =G Performed By: #### 4 [id number] #### [facility] [address] [place] [address] Dr. Brandon Frank HPV Genotype Reflex Comment Normal [place] Comment on above: Result Comment: Crit eria not met, HPV Genotype not performed. Performed at: WB Performed By: #### 4 [id number] #### [facility] [address] [place] [address] Dr. Brandon Frank Methodology: Comment Normal [facility] Comment on above: Result Comment: This liquid based ThinPrep(R) pap test was screened with the use of an image guided system. Performed at: WB Performed By: #### 4 [id number] #### [facility] [address] [place] [address] Dr. Brandon Frank Note: Comment Normal [facility] Comment on above: Result Comment: The Pap smear is a screening test designed to aid in the detection of premalignant and malignant conditions of the uterine cervix. It is not a diagnostic procedure and should not be used as the sole means of detecting cervical cancer. Both false-positive and false-negative reports do occur. . Performed at: WB Performed By: #### 4 [id number] #### [facility] [address] [place] [address] Dr. Brandon Frank Performed by: Comment Normal [facility] Comment on above: Result Comment: Nida Nguyen Waterproof Material Folder Performed at: WB Performed By: #### 4 [id number] #### [facility] [address] [place] [address] Dr. Brandon Frank Specimen adequacy: Comment Normal [facility] Comment on above: Result Comment: Sati sfactory for evaluation. No endocervical component is identified. Performed at: WB Performed By: #### 4 [id number] #### [facility] [address] [place] [address] Dr. Brandon Frank Ambulatory Clinical Summaryo n 07-30-2020 Ambulatory Clinical Summary {[id number]}CD:[id number] Silva Molina [facility] Patient Educationon 07-31-19 Patient Education Urinary Frequency The number of [...] Document Reviewed: 02/20/2010 ExitCare? Patient Information ?2013 [employer]!. Normal Molina [facility] Urology Office/Clinic Noteon 07-30-2020 Urology Office/Clinic Note [...] Contact Information Patrick Hyatt MD, Yemi Yee [facility] [place] [address] [place] [address]- Additional Instructions: prn Patient Education Urinary Frequency [...] 1 cap(s), Oral, BID Flonase 0.05 mg/inh [place], 2 spray(s), Nasal, BID Flovent HFA 220 [...] influenza virus vaccine, inactivated 01/2020 Recorded Normal [facility] Comment on above: Result Comment: Elec tronically Signed By: Patrick Hyatt MD, Yemi Yee\.br\Date and Time Signed: 07/30/20 14:14 EDT\.br\Electronically Co-Signed By: Erna Barron MA\.br\Date and Time Co-Signed: 07/30/20 13:50 EDT Consent for Procedure/Surger yon 03-26-2020 Consent for Procedure/Surgery [id number] .00CD:127 Normal [facility] Ambulatory Clinical Summaryo n 03-25-2020 Ambulatory Clinical Summary {[id number]}CD:[id number] Normal [facility] Patient Educationon 03-25-20 20 Patient Education Obesity [...] Document Reviewed: 07/18/2012 ExitCare? Patient Information ?[facility]. Family Medicine Obesity Obesity is having too [...] Document Reviewed: 07/18/2012 ExitCare? Patient Information ?2013 Zura!. [facility] Urology Office/Clinic Noteon 03-25-2020 Urology Office/Clinic Note [...] urine The Urethra was dilated to: 28 Faroese with sounds. Urethral dilation was uneventful. Removal: [...] Yemi Yee In 4 weeks [address], [place] [address]- Additional Instructions: Patient Education Obesity, Wvxo-uj-Htkl Obesity, Fktf-si-Ibfa Rossy Salomon, personally scribed for Dr. Nguyen on 03/25/2020 13:56:34. . Documentation recorded by the scribeRossy, accurately reflects the services(s) I performed and [...] 1 cap(s), Oral, BID Flonase 0.05 mg/inh [place], 2 spray(s), Nasal, BID Flovent HFA 220 [...] and this was dilated without complication. Normal [facility] Comment on above: Result Comment: Elec tronically Signed By: Yemi Nguyen Jr., MD\.br\Date and Time Signed: 03/25/20 13:58 EST\.br\Electronically Co-Signed By: Rossy Aranda MA\.br\Date and Time Co-Signed: 03/25/20 13:56 EST Formson 03-06-2020 Forms [id number]. 00CD:127 Normal [facility] Ambulatory Clinical Summaryo n 03-05-2020 Ambulatory Clinical Summary {[id number]}CD:[id number] Normal Molina [facility] Patient Education 03-05-20 20 Patient Education Family Medicine Overactive [...] bladder worse. Your healthcare provider or a professor of spanish can explain ways to change what you [...] Document Reviewed: 02/20/2010 ExitCare? Patient Information ?2013 [employer]ura!. [facility] Urology Office/Clinic Noteon 03-05-2020 Urology Office/Clinic Note Chief Complaint New pt referred by Dr Etienne for urgency and incontinence This patient is a 39-year-old female referred for evaluation of urinary frequency urgency and some urgency incontinence. Her symptoms are becoming more severe. She is here today for urologic consultation. [facility] Staff New pt referred by Dr. 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 There have been no associated [...] Will order Local anesthesia. ABX sent to [facility] in [place]. Ordered: Urology Procedure Order 2. Urge incontinence [...] day(s), # 2 tab(s), Refills(s) 0, Pharmacy: [facility], 160, cm, 03/05/20 10:44:00 EDT, Height/Length Dosing, 96, kg, 03/05/20 10:43:00... Urnls Dip Stick Auto w/o Microscopy POC 81847 Urnls Dip Stick Auto w/o Microscopy POC 44943 I have reviewed the previous health record information and history for this pt. from Dr. Nguyen. Follow-up With When Contact Information Patrick Hyatt MD, Yemi Yee [address] [place], [place] [address]- Additional Instructions: Patient Education Overactive Bladder, Adult IErna , personally scribed for Dr. Nguyen on [...] 1 cap(s), Oral, BID Flonase 0.05 mg/inh [place], 2 spray(s), Nasal, BID Flovent HFA 220 [...] Protein Urine Dipstick: Trace (03/05/20 10:44:00) Specific [place] Urine Dipstick: 1.020 (03/05/20 10:44:00) Urine Appearance Urine Dipstick: Cloudy (03/05/20 10:44:00) Urine Color Urine Dipstick: Yellow (03/05/20 10:44:00) Urobilinogen Urine Dipstick: Normal 0.2-1 EU/dl (03/05/20 10:44:00) pH Urine Dipstick: 7.5 (03/05/20 10:44:00) Diagnostic Results Reviewed urinalysis showing no evidence of infection. Reviewed the note from Dr. Etienne. PVR today was 271 cc. [facility] Comment on above: Result Comment: Elec tronically Signed By: Patrick Hyatt MD, Yemi Yee\.br\Date and Time Signed: 03/05/20 12:21 EDT\.br\Electronically Co-Signed By: Erna Barron MA\.br\Date and Time Co-Signed: 03/05/20 11:13 EDT CNPNon 09-06-2018 CNPN Telephone (NE50MN) REGINALD BURNETT ([id number]) 1980 F Date Time Provider Department 09/06/18 RAMIREZ FOOTE NE50MN During your visit today, we recorded the following information about you: Juan Albertoeber Mitchell Pss 09/06/2018 4:03 PM Signed General call : Full name of person calling: Reginald Burnett Relationship to patient: Self Phone # : [phone] Reason for call: Please refax letter to [...] Status:Closed by GHAZAL JOLLEY on 09/06/18 Normal [facility] Vital Signs Date Time Vital Sign Value Performing Clinician Facility 04-24-2024 10:36-0500 Body mass index (BMI) [Ratio] 34.5 kg/m2 Brandy CAROLINA Work Phone: [facility] 04-24-2024 10:36-0500 Body weight 91.17 kg Brandy CAROLINA Work Phone: [facility] 04-24-2024 10:36-0500 Diastolic blood pressure 78 mm[Hg] Brandy CAROLINA Work Phone: [facility] 04-24-2024 10:36-0500 Systolic blood pressure 124 mm[Hg] Brandy CAROLINA Work Phone: [facility] 10-06-2023 14:05-0400 Body height 160.02 cm DO Nahomy [facility] Work Phone: [facility] 10-06-2023 14:05-0400 Body mass index (BMI) [Ratio] 39.4 kg/m2 DO Nahomy Rumschlag Work Phone: [facility] 10-06-2023 14:05-0400 Body weight 100.92 kg DO Nahomy Rumschlag Work Phone: [facility] 10-06-2023 14:05-0400 Diastolic blood pressure 86 mm[Hg] DO Nahomy Rumschlag Work Phone: [facility] 10-06-2023 14:05-0400 Heart rate 61 /min DO Nahomy Rumschlag Work Phone: [facility] 10-06-2023 14:05-0400 Respiratory rate 16 /min DO Nahomy Rumschlag Work Phone: [facility] 10-06-2023 14:05-0400 SaO2% (BldA) [Mass fraction] 100 % DO Nahomy Rumschlag Work Phone: [facility] 10-06-2023 14:05-0400 Systolic blood pressure 122 mm[Hg] DO Nahomy Rumschlag Work Phone: [facility] 08-25-2023 14:29-0400 Body height 160.02 cm DO Nahomy Rumschlag Work Phone: [facility] 08-25-2023 14:29-0400 Body mass index (BMI) [Ratio] 40.6 kg/m2 DO Nahomy Rumschlag Work Phone: [facility] 08-25-2023 14:29040 Body weight 104 kg DO Nahomy Rumschlag Work Phone: [facility] 08-12-2023 12:14-0400 Body height 160 cm SharlaFaveous Work Phone: [facility] 08-12-2023 12:14-0400 Body mass index (BMI) [Ratio] 39.52 kg/m2 [facility] Work Phone: [facility] 08-12-2023 12:14-0400 Body temperature 97 [degF] Sharla Birch PA-C Work Phone: [facility] 08-12-2023 12:14-0400 Body weight 101.2 kg Sharla Birch PA-C Work Phone: [facility] 06-14-2023 11:00-0500 Body height 160.02 cm Enoch PAK Other [employer] Other 06-14-2023 11:00-0500 Body mass index (BMI) [Ratio] 42.35 kg/m2 Enoch PAK Other [employer] Other 06-14-2023 11:00-0500 Body weight 108.46 kg Enoch PAK Other [employer] Other 06-14-2023 11:00-0500 Diastolic blood pressure 92 mm[Hg] Enoch PAK Other [employer] Other 06-14-2023 11:00-0500 Respiratory rate 18 /min EnochPayveris Other [employer] Other 06-14-2023 11:00-0500 SaO2% (BldA) [Mass fraction] 98 % Enoch PAK Other [employer] Other 06-14-2023 11:00-0500 Systolic blood pressure 130 mm[Hg] EnochPayveris Other [employer] Other 05-18-2023 09:21-0500 Body height 160 cm Tomas CAROLINA-Zoey Work Phone: [facility] 05-18-2023 09:21-0500 Body mass index (BMI) [Ratio] 39.15 kg/m2 Tomas Rodriguez PA-C Work Phone: [facility] 05-18-2023 09:21-0500 Body weight 100.25 kg Tomas Rodriguez PA-C Work Phone: [facility] 05-18-2023 09:21-0500 Diastolic blood pressure 89 mm[Hg] Tomas Rodriguez PA-C Work Phone: [facility] 05-18-2023 09:21-0500 Heart rate 93 /min Tomas Rodriguez PA-C Work Phone: [facility] 05-18-2023 09:21-0500 Systolic blood pressure 133 mm[Hg] Tomas Rodriguez PA-C Work Phone: [facility] Encounters Encounter Date Encounter Type Care Provider Facility Start: 05-24-2024 ambulatory Ross Vanegas acility:[facility] Start: 05-08-2024 End: 05-08-2024 ambulatory Lima Hough DIETITIAN RESEARCH-INTERNATIONAL EXCHANGE COORDINATOR Facility:[facility] Start: 04-24-2024 End: 04-24-2024 Bamboo flowsheet Brandy CAROLINA Work Phone: [facility] Start: 04-24-2024 End: 04-24-2024 Bamboo flowsheet Brandy CAROLINA Work Phone: [facility] Start: 04-24-2024 End: 04-24-2024 ambulatory BRANDY RAMIREZ Not Available Start: 04-24-2024 End: 04-24-2024 Patient encounter procedure Brandy CAROLINA Work Phone: [facility] Start: 04-24-2024 End: 04-24-2024 Periodic preventive med est patient 40-64yrs Brandy CAROLINA Work Phone: [facility] Comment on above: Well woman exam with routine gynecological exam; Breast cancer screening by mammogram; Abdominal cramping; Postmenopausal HRT (hormone replacement therapy) Start: 04-19-2024 End: 04-19-2024 ambulatory Lima Hough DIETITIAN RESEARCH-INTERNATIONAL EXCHANGE COORDINATOR Facility:[facility] Start: 04-12-2024 End: 04-12-2024 ambulatory Nahomy Vicente Rumschlag DO Facility:[facility] Start: 03-15-2024 End: 03-15-2024 ambulatory Nahomy Vicente Rumschlag DO Facility:[facility] Start: 02-16-2024 End: 02-16-2024 ambulatory Lima Gómezersole DIETITIAN RESEARCH-INTERNATIONAL EXCHANGE COORDINATOR Facility:[facility] Start: 01-19-2024 End: 01-19-2024 ambulatory Nahomy Vicente Rumschlag DO Facility:[facility] Start: 12-22-2023 End: 12-22-2023 ambulatory Nahomy Vicente Rumschlag DO Facility:[facility] Start: 12-15-2023 End: 12-15-2023 ambulatory Nahomy Vicente Rumschlag DO Facility:[facility] Start: 11-24-2023 End: 11-24-2023 ambulatory Nahomy Vicente Rumschlag DO Facility:[facility] Start: 10-27-2023 End: 10-27-2023 ambulatory Nahomy Vicente Rumschlag DO Facility:[facility] Start: 10-06-2023 End: 10-06-2023 ambulatory DO Nahomy Rumschlag Work Phone: [facility] Work Phone: Start: 10-06-2023 End: 10-06-2023 Patient encounter procedure DO Nahomy Rumschlag Work Phone: [facility] Work Phone: Start: 09-30-2023 End: 10-01-2023 ambulatory HORTENCIA HOA [facility] Start: 09-29-2023 End: 09-29-2023 ambulatory Nahomy Vicente Rumschlag DO Facility:[facility] Start: 09-21-2023 End: 09-22-2023 ambulatory REGGIE EVANS [facility] Start: 09-16-2023 Registered Recurring DO Nahomy Rumschlag Work Phone: [facility] Start: 09-13-2023 End: 09-14-2023 ambulatory HOLGER LE [facility] Start: 08-30-2023 End: 08-31-2023 ambulatory DANIE MCGINNIS [facility] Start: 08-25-2023 End: 08-25-2023 ambulatory Nahomy Vicente Rumschlag DO Facility:[facility] Start: 08-25-2023 End: 08-25-2023 ambulatory DO Nahomy Rumschlag Work Phone: [facility] Work Phone: Start: 08-25-2023 End: 08-25-2023 Patient encounter procedure DO Nahomy Rumschlag Work Phone: [facility] Work Phone: Start: 08-18-2023 End: 08-18-2023 ambulatory Nahomy Vicente Rumschlag DO Facility:[facility] Start: 08-16-2023 End: 08-16-2023 ambulatory VISHAL CHRISTINE [facility] Start: 08-12-2023 End: 08-13-2023 ambulatory SHARLA BIRCH [facility] Start: 08-12-2023 End: 08-12-2023 ambulatory NAHOMY K [facility] Start: 08-12-2023 End: 08-12-2023 Office outpatient visit 25 minutes Sharla CAROLINA-C Work Phone: [facility] Comment on [...] 08-10-2023 Emergency department patient visit ALAN CAREY [facility] Start: 07-20-2023 Telephone encounter Tran [facility] Start: 07-14-2023 End: 07-14-2023 ambulatory Nahomy Winn DO Facility:[facility] Start: 07-12-2023 End: 07-12-2023 ambulatory Nahomy Winn Facility:[facility] Start: 07-12-2023 End: 07-12-2023 Departed Referred DO Nahomyzoraida Smithg Work Phone: [facility] [place] Work Phone: Start: 07-05-2023 End: 07-06-2023 ambulatory VISHAL NANCI [facility] Start: 07-02-2023 Telephone encounter Cathleen dietrich [facility] Comment on above: Closed fracture of a nkle, trimalleolar, left, with routine healing, subsequent encounter (Primary Dx) Start: 07-01-2023 End: 07-01-2023 Emergency department patient visit NAHOMY WINN [facility] Start: 06-24-2023 End: 06-24-2023 ambulatory Lima Hough APRN-INTERNATIONAL EXCHANGE COORDINATOR Facility:[facility] Start: 06-17-2023 End: 06-17-2023 ambulatory Michael Dozier MD Facility:[facility] Start: 06-14-2023 Encounter by vishal Braga [facility] Start: 06-14-2023 Nutrition therapy Enoch Nguyen [facility] Start: 06-14-2023 Registered Recurring DO Nahomyzoraida Ambrosioladoris Work Phone: [facility] Work Phone: Start: 06-14-2023 End: 06-14-2023 ambulatory Enoch Nguyen [employer] Other Start: 05-18-2023 End: 05-18-2023 ambulatory TOMAS RODRIGUEZ [facility] Start: 05-18-2023 End: 05-18-2023 Office outpatient visit 15 minutes Tomas MENONC Work Phone: [facility] Comment on above: Dizziness (Primary D x); History of epilepsy Start: 04-09-2023 End: 05-10-2023 ambulatory TOMAS RODRIGUEZ [facility] Start: 05-12-2022 ambulatory NAHOMY WINN Facilit y:[facility] Start: 04-30-2022 End: 05-01-[address] ALEXEY ETIENNE Facility:[facility] Start: 04-20-2022 End: 04-21-2022 ambulatory NAHOMY AMBROSIORAOULDoris Facility:[facility] Start: 04-13-2022 End: 04-13-[address] ALEXEY ETIENNE Facility:[facility] Procedures Date Procedure Procedure Detail Performing Clinician Start: 08-12-2023 Follow-up visit Follow-up SHARLA BIRCH Start: 07-12-2023 Aerobic microbial culture DO Nahomy Winn Work Phone: Start: 05-18-2023 Follow-up visit Follow-up TOMAS RODRIGUEZ Start: 05-06-2023 Mammography Brandy CAROLINA Work Phone: Start: 04-19-2023 Microscopic observat ion [Identifier] in Cervix by Cyto stain Brandy CAROLINA Work Phone: Start: 04-19-2023 Cytp cerv/vag auto t hin layer prep mnl screen Brandy CAROLINA Work Phone: Start: 03-23-2023 Adult depression scr eening assessment Tomas Rodriguez PA-C Work Phone: Plan of Treatment Date Care Activity Detail Author Start: 01-22-2033 DTaP,Tdap and Td Vaccines (2 - Td or Tdap) DTaP,Tdap and Td Vaccines (2 - Td or Tdap) [facility] Start: 04-19-2028 Screening for malignant neoplasm of cervix [facility] Start: 04-30-2025 End: 04-30-2025 Patient encounter procedure 04/30/2025 11:00 AM EST Office Visit [facility] [address] [place] [id number] Alexey Etienne DO [address] [place] [address] [facility] Start: 08-11-2024 Adult BMI Screening Adult BMI Screen ing [facility] Start: 08-11-2024 Tobacco Screening Tobacco Screening [facility] Start: 08-08-2024 Adult BMI Screening Adult BMI Screen ing [facility] Start: 08-08-2024 Tobacco Screening Tobacco Screening [facility] Start: 07-05-2024 Adult BMI Screening Adult BMI Screen ing [facility] Start: 07-01-2024 Adult BMI Screening Adult BMI Screen ing [facility] Start: 07-01-2024 Tobacco Screening Tobacco Screening [facility] Start: 05-18-2024 Adult BMI Screening Adult BMI Screen ing [facility] Start: 05-18-2024 Tobacco Screening Tobacco Screening [facility] Start: 05-06-2024 Screening for malignant neoplasm of breast Mammogram [facility] Start: 04-24-2024 End: 06-25-2025 MG Breast - bilateral Screening Bilateral screening mammogram Imaging Routine Breast cancer screening by mammogram Expected: 04/24/2024 (Approximate), Expires: 06/25/2025 [facility] Work Phone: Comment on above: Expected: 04/24/2024 (Approximate), Expires: 06/25/2025 Start: 03-23-2024 Depression Screening Depression Scre ening [facility] Start: 01-09-2024 Influenza vaccination [facility] Start: 09-09-2023 End: 09-09-2023 Patient encounter procedure 09/09/2023 3:30 PM EDT Office Visit [facility] [address] [place] [address] [place] [address] [place] [address] [facility] Start: 08-19-2023 End: 08-19-2023 Patient encounter procedure 08/19/2023 10:15 AM EDT Office Visit [facility]Tra[facility] Adult Reconstruction [address] [facility] [address] [place] [address] Vishal Christine MD [facility] [employer] [facility], [address] [place] [address] [facility] Start: 08-16-2023 End: 08-16-2023 Patient encounter procedure 08/16/2023 9:30 AM EDT Office Visit [facility] Adult [facility] [address] [place] [phone] Vishal Christine MD [facility] [employer] [address] [place] [address] [facility] Start: 08-12-2023 End: 08-12-2023 Patient encounter procedure 08/12/2023 12:15 PM EDT Office Visit [facility] Adult [facility] [address] [place] [phone] Vishal Christine MD [facility] [employer] [place] [address] [facility] Start: 07-05-2023 End: 07-05-2023 Patient encounter procedure [facility] Start: 07-02-2023 End: 07-02-2024 XR Ankle - left 3 Views X-ray ankle left minimum 3 views Imaging Routine Closed fracture of ankle, trimalleolar, left, with routine healing, subsequent encounter Expected: 07/02/2023, Expires: 07/02/2024 [facility] Work Phone: Comment on above: Expected: 07/02/2023 , Expires: 07/02/2024 Start: 01-08-2023 COVID-19 Vaccine ( season) COVID-19 Vaccine ( season) [facility] Start: 12-06-1997 Adult BMI Follow Up Plan Adult BMI Follow Up Plan [facility] THIN PREP TIS PAP AN D HR HPV DNA THIN PREP TIS PAP AND HR HPV DNA Pathology and Cytology Routine Well woman exam with routine gynecological exam Ordered: 04/24/2024 [facility] Comment on above: Ordered: 04/24/2024 Immunizations Immunization Date Immunization Notes Care Provider Fly gallo 01-22-2023 influenza virus vaccine, unspecified formulation Tran Wright [facility] 05-13-2021 Seasonal, quadrivale nt, recombinant, injectable influenza vaccine, preservative free Tomasmily Rodriguez PA-C Work Phone: [facility] 02-28-2020 influenza, injectabl e, quadrivalent, preservative free Tomasmily Rodriguez PA-C Work Phone: [facility] 02-26-2017 influenza, seasonal, injectable Tomasmily Rodriguez PA-C Work Phone: [facility] 03-13-2014 influenza, seasonal, injectable Tomas Rodriguez PA-C Work Phone: [facility] 03-30-2011 influenza virus vaccine, whole virus Tomasmily Rodriguez PA-C Work Phone: [facility] Payers Date Payer Category Payer Medicare [id number] 2023 Medicare [id number] 2023 Unknown 2022 Self-pay 2022 Medicaid MEDICAID [place] [facility] - ONLY [id number] 2022-Present [phone] [address] [place] [address] [id number]. [id number] 2022 Unknown [id number] 2021 Medicare (Managed Care) [facility] MEDICARE [id number] 2020 Unknown [id number] 1979 Unknown [id number] 2.16840.1.686101.3.579.2. 593 1979 Unknown [id number] 2.16840.1.008642.3.579.2. 593 1979 Unknown [id number] 2.840.1.634156.3.579.2. 1979 Unknown [id number] 2.840.1.947350.3.579.2. 3 1979 Unknown [id number] 2.840.1.251676.3.579.2. 1285 1979 Unknown [id number] 2.16840.1.991847.3.579.2. 1285 1979 Unknown [id number] 2.840.1.383985.3.579.2. 1285 1979 Unknown [id number] 2.840.1.629138.3.579.2. 1285 1979 Unknown [id number] 2.840.1.825310.3.579.2. 1285 1979 Unknown [id number] 2.16840.1.304354.3.579.2. 1285 1979 Unknown [id number] 2.16840.1.466510.3.579.2. 1285 1979 Unknown [id number] 2.16840.1.338503.3.579.2. 1285 1979 Unknown [id number] 2.16840.1.733601.3.579.2. 1285 1979 Unknown [id number] 2.16.840.1.542234.3.579.2. 1285 1979 Unknown [id number] 2.16.840.1.415709.3.579.2. 1285 1979 Unknown [id number] 2.16.840.1.144804.3.579.2. 1285 1979 Unknown [id number] 2.16.840.1.019591.3.579.2. 1285 1979 Unknown [id number] 2.16.840.1.195598.3.579.2. 1285 1979 Unknown [id number] 2.16.840.1.201231.3.579.2. 1285 1979 Unknown [id number] 2.16.840.1.133094.3.579.2. 1285 1979 Unknown [id number] 2.16840.1.121193.3.579.2. 1258 1979 Unknown [id number] 2.16840.1.119576.3.579.2. 1979 Unknown [id number] 2.16.840.1.524658.3.579.2. 1979 Unknown [id number] 2.16.840.1.968669.3.579.2. 1979 Unknown [id number] 2.16840.1.926312.3.579.2. 1979 Unknown [id number] 2.16.840.1.307934.3.579.2. 1979 Unknown [id number] 2.16.840.1.162035.3.579.2. 1979 Unknown [id number] 2.16.840.1.636616.3.579.2. 1979 Unknown [id number] 2.16.840.1.446021.3.579.2. 1979 Unknown [id number] 2.16.840.1.927726.3.579.2. 196 1979 Unknown [id number] 2.16.840.1.413917.3.579.2. 196 1979 Unknown [id number] 2.16.840.1.442131.3.579.2. 196 1979 Unknown [id number] 2.16.840.1.091351.3.579.2. 196 1979 Unknown [id number] 2.16.840.1.819074.3.579.2. 196 1979 Unknown [id number] 2.16.840.1.619281.3.579.2. 196 1979 Unknown [id number] 2.16.840.1.441078.3.579.2. 196 1979 Unknown [id number] 2.16.840.1.626507.3.579.2. 196 1979 Unknown [id number] 2.16.840.1.332806.3.579.2. Unknown [id number] 2.16.840.1.976340.3.579.2. 531 Unknown [id number] 2.16.840.1.786676.3.579.2. 531 Social History Date Type Detail Facility Start: 04-07-2022 End: 11-22-2022 Tobacco smoking status [facility] Never smoked tobacco [facility] Start: 04-07-2022 Tobacco use and exposure Smokeless tobacco non-user [facility] Start: 05-18-2023 End: 08-12-2023 Alcohol intake Current non-drinker of alcohol (finding) [facility] Start: 07-12-2020 End: 04-19-2023 History of Social function [facility] Start: 07-12-2020 End: 04-19-2023 Social connection and isolation panel [facility] Do you belong to any clubs or organizations such as bahai groups, unions, fraternal or athletic groups, or school groups? No [facility] Are you now , , , , never or living with a partner? Never [facility] How hard is it for y ou to pay for the very basics like food, housing, medical care, and heating Not hard at all [facility] Do you feel stress - tense, restless, nervous, or anxious, or unable to sleep at night because your mind is troubled all the time - these days [OSQ] Not at all [facility] Start: 1980 Sex Assigned At Not on file [facility] Start: 1980 Sex Assigned At Female [facility] Start: 08-10-2023 Alcoholic beverage intake Lifetime non-drinker (finding) [facility] Start: 10-30-2022 Alcohol Comment Caffeine intake: 1-2 cups per day soda/pop [facility] Start: 10-27-2022 Gender identity Identifies as female gender (finding) [facility] Start: 10-27-2022 Sexual orientation Heterosexual (finding) [facility] Medical Equipment Procedure Code Equipment Code Equipment Origin al Text Equipment Identifier Dates Clamp Xtrnfx 11m m 8mm Cmbn Clpon Slf Hld Mr Conditional Ns - [id number] Start: 07-26-2022 Pin Fx 225mm 5mm Stnm Ss Cntr Thrd Ns Lg Xtrnfxtr - [id number] Start: 07-26-2022 Impl Nsl Propel Mn Mometasone - Sna - [id number] Start: 10-14-2017 Drill Bit 3.5mm [id number] Start: 07-26-2022 Plate Bn 116mm C ntr 6 Hl Lcp Cmbn Fib Lt Dist P/L Ss Ns - [id number] Start: 08-18-2022 Mahesh Xtrnfx 350mm 11mm Cfbr Mr Conditional Ns - [id number] Start: 07-26-2022 Screw Xtrnfx 125 mm 4mm Schnz Hip Cndyl Ss Slf Drl Mr - [id number] Start: 07-26-2022 Screw Bn 54mm [address]m [address] Slf Drl Cnn Sm Hex Sckt L/T - [id number] Start: 08-18-2022 Edis [place] - [facility] - [id number] Start: 10-14-2017 Goals Date Patient Goal Desired [...] and family support Clinical Notes 05-18-2023 to 04-24-2024 GE Rogers - 04/24/2024 10:00 AM Tamera Birch PA-C - 08/12/2023 12:15 PM EDTTelephone Encounter - Tran Wright - 08/09/2023 1:03 PM EDT Note Date & Type Note Facility 04-24-2024 History of Presen t illness Narrative Reason for Appointment: Patient ID: Reginald Burnett is a 43 y.o. female who presents for Gynecologic Exam Patient presents today for Annual Exam. MEDICATIONS Current Outpatient Medications Medication Instructions ARIPiprazole (Abilify) 10 MG tablet Every 24 hours BABY ASPIRIN PO Oral baclofen (Lioresal) 10 MG tablet TAKE 1 TABLET BY MOUTH TWICE DAILY NEEDED FOR 30 DAYS cetirizine (ZYRTEC) 10 mg, Daily citalopram (CeleXA) 10 MG tablet Every 24 hours fluticasone (Flonase) 50 MCG/ACT nasal spray lamoTRIgine (LaMICtal) 100 MG tablet take 1 tablet (100MG) by ORAL route 2 times every day Oral montelukast (SINGULAIR) 10 mg, Daily omeprazole (PRILOSEC) 40 mg, Daily ALLERGIES Allergies Allergen Reactions Penicillins Shortness of breath Other reaction(s): anaphylaxis, hives Cat Hair Extract Dog Epithelium (Canis Lupus Familiaris) Other reaction(s): Unknown Penicillin G Other Reaction(s): anaphylaxis, hives PROBLEMS Active Ambulatory Problems Diagnosis Date Noted No Active Ambulatory Problems Resolved Ambulatory Problems Diagnosis Date Noted No Resolved Ambulatory Problems Past Medical History: Diagnosis Date Anxiety Asthma ([facility]) Chronic sinusitis 2012 Depression ([facility]) Environmental allergies 2014 Headache HTN (hypertension) ([facility]/HCC) Pelvic pain Seizure disorder ([facility]/HCC) HISTORY PAST MEDICAL HISTORY SOCIAL HISTORY Past Medical History: Diagnosis Date Anxiety Asthma (CMS/HCC) Chronic sinusitis 2013 Depression (CMS/HCC) Environmental allergies 2014 Headache HTN (hypertension) ([facility]/HCC) Pelvic pain Seizure disorder ([facility]/HCC) Social History Tobacco Use Smoking status: Never Smokeless tobacco: Not on file Substance Use Topics Alcohol use: Never Comment: Caffeine intake: 1-2 cups per day soda/pop Drug use: Never FAMILY HISTORY Family History Problem Relation Name Age of Onset Diabetes Father Hypertension Father No Known Problems Sister No Known Problems Brother Cirrhosis Maternal Grandmother Cancer Maternal Grandfather No Known Problems Paternal Grandmother No Known Problems Paternal Grandfather SURGICAL HISTORY Past Surgical History: Procedure Laterality Date BRAIN SURGERY Seizure disorder CT ANGIOGRAM HEART CORONARY 07/14/2020 CT ANGIOGRAM TAVR 07/14/2020 CT ANGIOGRAM HEART CORONARY 11/09/2019 CT ANGIOGRAM TAVR 11/09/2019 CT ANGIOGRAM HEART CORONARY 06/25/2019 CT ANGIOGRAM TAVR 06/25/2019 HYSTERECTOMY 2007 OTHER SURGICAL HISTORY Immunotherapy initiated PAP SMEAR 09/10/2020 negative SINUS SURGERY Bilateral REVIEW OF SYSTEMS Review of Systems: Review of Systems All other systems reviewed and are negative. OBJECTIVE Objective: Physical Exam Constitutional: Appearance: Normal appearance. Genitourinary: Right Adnexa: not tender and no mass present. Left Adnexa: not tender and no mass present. No cervical discharge. Breasts: Breasts are soft. Right: Normal. Left: Normal. HENT: Head: Normocephalic. Nose: Nose normal. Mouth/Throat: Mouth: Mucous membranes are moist. Cardiovascular: Rate and Rhythm: Normal rate. Pulmonary: Effort: Pulmonary effort is normal. Abdominal: General: Bowel sounds are normal. Palpations: Abdomen is soft. Musculoskeletal: General: Normal range of motion. Cervical back: Normal range of motion. Neurological: General: No focal deficit present. Mental Status: She is alert. Skin: General: Skin is warm and dry. Psychiatric: Mood and Affect: Mood normal. Vitals and nursing note reviewed. Exam conducted with a nanoelectronics engineer present. Vitals: Estimated body mass index is 41.73 kg/m as calculated from the following: Height as of 11/24/22: 5' 4 . Weight as of 04/19/23: 243 lb 1.9 oz. BP: No LMP recorded. Patient has had a hysterectomy. ASSESSMENT & PLAN ICD-10-CM 1. Well woman exam with routine gynecological exam Z01.419 THIN PREP TIS PAP AND HR HPV DNA 2. Breast cancer screening by mammogram Z12.31 Bilateral screening mammogram Bilateral screening mammogram Annual: Patient presents today for an annual exam. Patient states she is doing well and has no complaints. Pap was obtained without difficulty and patient given mammogram order to have scheduled/obtained. Orders Placed This Encounter Procedures Bilateral screening mammogram Follow Up: Patient is to return in one year for annual unless needed otherwise. Documented by Alexandra Buck MA on behalf of: GE Rogers documented in this encounter [facility] 08-12-2023 History of Presen t illness Narrative [...] Date Asthma Chronic pain disorder Depression Epilepsy ([facility]) GERD (gastroesophageal reflux disease) Low back pain Obesity Seizures ([facility]) last siezure in 1990 Shortness of breath Visual impairment glasses Past Surgical History: Procedure Laterality Date APPLICATION EXTERNAL FIXATOR LOWER EXTREMITY Left 07/26/2022 Performed by Vishal Christine MD at [facility] BRAIN SURGERY tissue removed, causing seizures CLOSED REDUCTION ANKLE Left 07/26/2022 Performed by Vishal Christine MD at [facility] CLOSED REDUCTION ANKLE Left 07/24/2022 Performed by Hortencia Swenson MD at [facility] ENDOSCOPIC SURGERY SINUS-ETHMOIDECTOMY, MAXILLARY ANTROSTOMY, SPHENOIDOTOMY Bilateral 10/14/2017 Performed by Yohan Tirado MD at [facility] HYSTERECTOMY INJECTION BLOCK NERVE MEDIAL BRANCH Bilat L 08/12,09/07 Bilateral 07/04/2021 Performed by Galen Ramirez MD at [facility] INJECTION BLOCK NERVE MEDIAL BRANCH Bilat L /5,5/ Bilateral 03/14/2021 Performed by Galen Ramirez MD at [facility] INJECTION BLOCK SACROILIAC JOINT Right 11/14/2021 Performed by Galen Ramirez MD at [facility] OPEN REDUCTION INTERNAL FIXATION ANKLE TRIMALLEOLAR Left 08/18/2022 Performed by Vishal Christine MD at [facility] RADIOFREQUENCY ABLATION SPINAL Left L 4/5,5/ Left 09/19/2021 Performed by Galen Ramirez MD at [facility] RADIOFREQUENCY ABLATION SPINAL right L 4/5,5/1 Right 08/22/2021 Performed by Galen Ramirez MD at [facility] REMOVAL EXTERNAL FIXATOR LOWER EXTREMITY Left 08/18/2022 Performed by Vishal Christine MD at [facility] REMOVAL HARDWARE ANKLE Left 08/18/2022 Performed by Vishal Christine MD at [facility] RESECTION SUBMUCOSAL Bilateral 10/14/2017 Performed by Yohan Tirado MD at [facility] SINUS SURGERY 2015 TUBAL LIGATION Social History [...] min Stress: No Stress Concern Present (07/12/2020) [employer] [place] [employer] - Occupational Stress Questionnaire Feeling of Stress : Not at all Social Connections: Socially Isolated (07/12/2020) Social Connection and Isolation Panel [NHANES] Frequency of Communication with Friends and Family: More than three times a week Frequency of Social Gatherings with Friends and Family: More than three times a week Attends Sikh Services: Never Active Member of Clubs or [...] on above criteria. Sharla Birch PA-C 08/12/23 1447 documented in this encounter [facility] 08-09-2023 Note XR FOOT RT MIN 3 [...] Mercedes Kern DO on 08/09/2023 11:32 AM [facility] 08-09-2023 Miscellaneous Notes Patient's mom called in and stated that patient was seen in ER today she broke her right foot. Creative Services Manager spoke with GE Magdaleno she looked at the xray stated that she wanted the doctor's opinion before we schedule her an appt. Creative Services Manager notified Bethel that we will give her a call back to schedule she stated that she was perfectly fine with that. Bethel can be reached at [phone]. Can you get her scheduled in [facility] on or Wednesday this week? Thank you! Spoke with patient's mom Bethel patient is scheduled for 08/12/2023 @ 12:15 pm documented in this encounter [facility] 08-09-2023 Telephone encounter Note Patient's mom called in and stated that patient was seen in ER today she broke her right foot. Creative Services Manager spoke with GE Magdaleno she looked at the xray stated that she wanted the doctor's opinion before we schedule her an appt. Creative Services Manager notified Bethel that we will give her a call back to schedule she stated that she was perfectly fine with that. Bethel can be reached at [phone]. [facility] 08-09-2023 Telephone encounter Note Can you get her scheduled in [facility] on or Wednesday this week? Thank you! [facility] Work Phone: 08-09-2023 Telephone encounter Note Spoke with patient's mom Bethel patient is scheduled for 08/12[facility]2023 @ 12:15 [facility] Miscellaneous Notes Patient's mother Bethel called [...] questions needed she can be reached at [phone]. Please review and advise, thank you. Rash was swabbed by tire beader maker and the patient was started on oral doxycycline, a topical and some medication to help with itching. If there is any worsening of the rash or open wounds at her incision they are instructed to contact our office. documented in this encounter [facility] 07-20-2023 Telephone encounter Note Patient's mother Bethel [...] questions needed she can be reached at [phone]. Please review and advise, thank you. [facility] 07-20-2023 Telephone encounter Note Rash was swabbed by tire beader maker and the patient was started on oral doxycycline, a topical and some medication to help with itching. If there is any worsening of the rash or open wounds at her incision they are instructed to contact our office. [facility] Work Phone: 07-02-2023 Miscellaneous Notes BETHEL IS CALLING SINCE PT HAS CELLULITIS AND PAIN HER LEFT ANKLE SHE IS CONCERNED ABOUT THE HARDWARE SHE CAN BE REACHED AT [phone] Spoke with Mom. Patient has c/o of a rash on her Lower left ankle/venegas area. X 1 month. Patient is being treated by her PCP. Rash has gotten worse yesterday and went to [facility] yesterday. Treated for cellulitis-placed on Clindamycin and Atarax. Instructed Mom to continue antibiotics and Atarax Appt scheduled with Dr Christine for Wednesday07-05-2023 8:45 with left ankle Xrays. Instructed Mom if anything changes over the weekend to call our after hours service. documented in this encounter [facility] 07-02-2023 Telephone encounter Note BETHEL IS CALLING SINCE PT HAS CELLULITIS AND PAIN HER LEFT ANKLE SHE IS CONCERNED ABOUT THE HARDWARE SHE CAN BE REACHED AT [phone] [facility] 07-02-2023 Telephone encounter Note Spoke with Mom. Patient has c/o of a rash on her Lower left ankle/venegas area. X 1 month. Patient is being treated by her PCP. Rash has gotten worse yesterday and went to [facility] yesterday. Treated for cellulitis-placed on Clindamycin and Atarax. Instructed Mom to continue antibiotics and Atarax Appt scheduled with Dr Christine for Wednesday07-05-2023 8:45 with left ankle Xrays. Instructed Mom if anything changes over the weekend to call our after hours service. [facility] 06-14-2023 Evaluation note Encounter Date Diagnosis Assessment [...] voice recognition software. Please excuse errors in salvager helper. Jun, Exercise counseling (ICD-10 - Z71.89) Absolute HGS at time of consultation (pounds): 54.5Discussed in detail exercise interventions to promote lean tissue mass preservation during calorie restriction. Jun, History of seizure (ICD-10 - Z87.898) Avoid Wellbutrin [employer] Other 01-09-2024 History of Present illness Narrative* Tomas Rodriguez PA-C - 05/18/2023 9:00 AM EST [facility] Neurology Office Note 05/18/2023 9:23 AM Patient info: Reginald Burnett is a 42 y.o. female Account No.: [id number] Acct: : 1980 PCP: NAHOMY WINN DO [...] is no hx of significant head injury/trauma, [employer] infection, or stroke. 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 She underwent a partial right temporal lobectomy at the [facility] years ago. She remains on Lamotrigine [...] needed Electronically Signed by: Tomas Rodriguez PA-C 05/18/2356 [facility] Diagnosis Dizziness- Primary Dizziness and giddiness History of epilepsy Unspecified epilepsy without mention of intractable epilepsy documented in this encounter [facility] [employer] Development Partnersaluation noteNo InformationNort Leveler Other Evaluation note* Diagnosis Closed fracture of ankle, trimalleolar, left, with routine healing, subsequent encounter- Primary documented in this encounter [facility] [employer]Evaluation note* Diagnosis Closed displaced fracture of second [...] foot, initial encounter documented in this encounter [facility] Partnersalusaint [facility] noteNo assessment information available [facility] Work Phone: Evaluation note* Diagnosis Onset Date Resolution Status Severe obesity (BMI >= 40) nadia moralez [facility] Work Phone: Evaluation note* Diagnosis Well woman exam with routine gynecological exam Routine gynecological examination Breast cancer screening by mammogram Abdominal cramping Abdominal pain, unspecified site Postmenopausal HRT (hormone replacement therapy) Need for prophylactic hormone replacement therapy (postmenopausal) documented in this [facility] N[facility]ative - Reported* Type Description Date Medical History asthma Medical History Depression Medical History Insomnia Medical History History of partial c omplex seizures -resolved with surgery Surgical History Brain surgery, right front lobe Surgical History Nasal polyps Surgical History Partial hysterectomy Surgical History Left ankle Fx repair Hospitalization History See above Hospitalization History Asthma [employer] [employer] Other InstructionsNot on filedocumented in this encounter [facility] filedocumented in this encounter [facility]Not on filedocumented in this encounter [facility]ructionsNot on filedocumented in this encounter [facility]Not on filedocumented in this encounter [facility] Summary Purpose Family History No Family [...] Specialty Diagnoses / Procedures Referred By Zelalem t Referred To Contact Radiology Diagnoses Closed displaced fracture of second metatarsal bone of right foot, initial encounter Closed nondisplaced fracture of third metatarsal bone of right foot, initial encounter Closed nondisplaced fracture of fourth metatarsal bone of right foot, initial encounter Procedures CT foot right without contrast Sharla BirchPUSHPA [address] [place] [address] [facility] [address] [place] [address] Phone: [phone] Referral ID Status Reason Start Date Expiration Date Visits Re quested Visits Authorized [id number] Closed 08/12/2023 09/11/2023 1 1 Chief Complaint and Reason for Visit Chief Complaint Obesity L20.89 Chief Complaint L20.89 BH Reason for Visit Severe obesity (BMI >= 40) Chief Complaint BH Reason for Visit Severe obesity (BMI >= 40) Additional Source Comments INFORMATION SOURCE (unrecogn ized section and content) DATE CREATED AUTHOR 09/11/2018 [facility] DATE CREATED AUTHOR AUTHOR'S ORGANIZ ATION 07/31/2020 [facility] DATE CREATED AUTHOR AUTHOR'S ORGANIZ ATION 05/12/2022 [facility] DATE CREATED AUTHOR AUTHOR'S ORGANIZ ATION 09/23/2023 [facility] DATE CREATED AUTHOR AUTHOR'S ORGANIZ ATION 10/02/2023 [facility] DATE CREATED AUTHOR AUTHOR'S ORGANIZ ATION 04/26/2024 [facility] DATE CREATED AUTHOR AUTHOR'S ORGANIZ ATION 05/10/2024 [facility] DATE CREATED AUTHOR AUTHOR'S ORGANIZ ATION 05/30/2024 [facility] y[facility] Reason for Visit (unrecogniz ed section and content) Reason Comments Follow-up Patient presents for follow up of dizziness with no concerns. Reason Comments Establish Care Follow-up Reason Comments Gynecologic Exam Care Teams (unrecognized sec tion and content) [...] August 25, 2023 End: August 25, 2023 IRLANDA Dailey Attending Provider Active Start: August 25, [...] October 06, 2023 End: October 06, 2023 Waste [employer] Relationship Specialty Start Date End Date Nahomy Winn DO [address] [place] [address] PCP - [facility] 08/04/22 Waste Hand Relationship Specialty Start Date End Date Marixa Winnty DO Katharina [address] [place] [address] PCP - [facility] 08/04/22 Waste Hand Relationship Specialty Start Date End Date Marixa Winnty DO Katharina [address] [place] [address] PCP - [facility] 08/04/22 Waste Hand Relationship Specialty Start Date End Date Marixa Winnty DO Katharina [address] [place] [address] PCP - General [facility] Medicine 08/04/22 Team Status: Active Member Role [...] BE BASED ON THE PRIMARY CLINICAL RECORDS. [facility]. provides no warranty or guarantee of the accuracy or completeness of information in this document.
== END 2024-06-05 14:05 | disposition home or self-care (01) ==
LOC: MAMMO 14:06
PROVIDERS: Family Provider Family Medicine; Visit Provider Obstetrics & Gynecology
DX: Z12.31 Encounter for screening mammogram for malignant neoplasm of breast (principal)
CPT/HCPCS: 77063; 77067

== ENCOUNTER 2025-04-30 20:34 | Outpatient (REF) | payer MEDICARE, SELFPAY ==
--- OUTSIDE RECORDS SUMMARY | 2024-12-12 05:00 | XMS_ITS ---
Author Organization [facility] vices Address [address], [place] [id number] Care Team Providers Care Ruby On Rails Software Developer Name Role Phone Triston Perez Primary Care Provider Rachel Ramsey [phone] REASON FOR VISIT Toe issue, GERD fu med refill Social History Sex Assigned At : Social History Observation Description Sex Assigned At Female Encounters Encounter Location Date Provider Diagnosis Main [address] [place] [id number] 12/12/2024 Triston Perez Plan Of Treatment Next Appt Details Provider Name:Rachel gar, 06/14/2025 12:45:00 PM, [address] [place] [address], [phone], Provider Name:Rachel gar, 06/21/2025 12:45:00 PM, [address] [place] [address], [phone], Provider Name:Rachel gar, 09/18/2025 10:45:00 AM, [address] [place] [address], [phone], Progress Notes * Talita HALEOB:[birth year] (44 yo F)Acc No.[id number]:12/12/2024 Medical Note Patient: Odilia soriano Janie :?Triston StuddDOB:1980???Age:44 Y???Sex:Female Date:12/12/2024Phone:[phone]:[address], [place], [id number] Subjective: * Chief Complaints: * T oe issue, GERD fu med refill * Electronic signature of GE Tejeda on 04/30/2025 at 10:45 AM ESTSign off status: Pending * Provider: Wellington Perez Date: 0 12/12/2024 Generated for Printing/Faxing/eTransmitting on:?04/30/2025 10:45 AM EST
--- OUTSIDE RECORDS SUMMARY | 2025-04-18 11:15 | XMS_ITS ---
Author Organization [facility] Address [address] [place] [id number] Care Team Providers Care Developer Relations Manager Name Role Phone Triston Perez Primary Care Provider Rachel Ramsey [phone] Allergies Allergen (clinical drug ingredient) Drug/Non Drug Allergy documented on EMR Reaction Allergy Type Onset Date Status amoxicillin Amoxicillin Comments: SOB Drug Allergy ActivePenicillinUnknownDrug AllergyActive Reason For Referral Reason recurrent GERD despi te PPI EGD done in September Diagnosis 1 Gastroesophageal ref lux disease with esophagitis without hemorrhage (K21.00) Referral Organization Main Referring Provider First Name Triston Referring Provider Last Name Chris Referring Provider Speciality Physician Assistant Corporate Secretary Referred Provider Replaced By [facility] Hussain daniel Referred Provider Specialty Gastroentero logy Referral Priority Routine REASON FOR VISIT GERD Medications Medication SIG (Take, Route, Frequency, Duration) Notes Start Date End Date Status Pantoprazole Sodium 40 MG Ta blet Delayed Release 1 tablet 1/2 to 1 hour before morning meal Orally twice a day; Duration: 60 days 5ActiveFluticasone Propionate 50 MCG/ACT SuspensionUSE 1 SPRAY(S) IN EACH NOSTRIL TWICE DAILY IF SYMPTOMS PERSIST AFTER 1 WEEK INCREASE TO 2 SPRAYS EACH NOSTRIL TWICE DAILY Nasal; Duration: 30 DaysActiveChlorhexidine Gluconate 0.12 % SolutionSwish and spit one capful for 30 seconds after brushing Mouth/Throat Two times per day, AM and PM; Duration: 30 days5Active Colchicine 0.6 MG TabletOral; Duration: 90 DaysActiveDenta 5000 Plus 1.1 % Cream [place] with toothpaste morning and night. Do not rinse after use. Dental Two times a day; Duration: 30 5ActiveAzelastine HCl 137 MCG/SPRAY SolutionUSE 1 SPRAY(S) IN EACH NOSTRIL TWICE DAILY Nasal; Duration: 50 Days ActiveEPINEPHrine 0.3 MG/0.3ML Solution Auto-injectorInjection; Duration: 2 Days ActiveCetirizine HCl 10 MG Tablet1 tablet Orally Once a day; Duration: 90 days ActiveMontelukast Sodium 10 MG Tablet1 tablet Orally Once a day; Duration: 08/06/2021ctivetraZODone HCl 100 MG TabletOral; Duration: 90 DaysActive lamoTRIgine 100 MG Tablet1 tablet Orally Once a dayActiveCeleXA 20 MG Tablet1 tablet Orally Once a day09/22/2018ActiveBreo Ellipta 200-25 MCG/INH Aerosol Powder Breath ActivatedINHALE 1 PUFF BY MOUTH IN THE MORNING Inhalation daily; Duration: 90 daysActiveAlbuterol Sulfate (2.5 MG/3ML) 0.083% Nebulization Solution3 mL as needed Inhalation Three times a day; Duration: 30 Active Albuterol Sulfate HFA 108 (90 Base) MCG/ACT Aerosol Solution1 puff as needed Inhalation every 4 hrs; Duration: 05/08/2022ctiveTerbinafine HCl 250 MG Tablet1 tablet Orally Once a day; Duration: 12/14/2024tivePantoprazole Sodium 40 MG Tablet Delayed Release1 tablet 1/2 to 1 hour before morning meal Orally Once a day; Duration: 10/05/2024tiveAspirin 81 MG Tablet Delayed Release1 tablet Orally Once a dayActiveVitamin D 50 MCG (2000 UT) Tablet1 tablet Orally Once a dayActiveMeclizine HCl 12.5 MG Tablet1 tablet as needed Orally every 12 hrs; Duration: 30 03/24/2023Not-Taking/PRNAzithromycin 250 MG Tablet2 day one 1 days 2-5 Orally daily; Duration: 01/01/2025 Not-Taking/PRNpredniSONE 50 MG Tablet1 tablet with food or milk Orally Once a day; Duration: 5 day(s)01/01/2025Not-Taking/PRNCapmist DM 60-15-400 MG Tablet1 tablet at 4 hour intervals as needed Orally Four times a day; Duration: 7 days 12/14/2024Not-Taking/PRN Social History Sex Assigned At : Social History Observation Description Sex Assigned At Female Problems Problem Type SNOMED Code ICD Code Onset Dates Problem Status W/U Status Risk Notes Problem Gastroesophageal ref lux disease with esophagitis (disorder) (833343575) Gastroesophageal reflux disease with esophagitis without hemorrhage (K21.00) Activeconfirmed Vital Signs Temperature 97 degrees Fahrenheit 04/18/2025 Blood pressure systolic 116 mm Hg 04/18/20 25 Blood pressure diastolic 83 mm Hg 025 Heart Rate 94 /min 04/18/2025 Respiratory Rate 18 /min 04/18/2025 Height 63 in 04/18/2025 Weight 225.5 lbs 04/18/2025 BMI 39.94 kg/m2 04/18/2025 Oximetry 96 % 04/18/2025 Height-cm 160.02 cm 04/18/2025 Weight-kg 102.29 kg 04/18/2025 She has pain in her right sh oulder/ collar bone area when she lays down. She feels a tightness and like a pulling/ burning sensation when she reaches with that arm. Prema Costa 04/18/2025 04:14:15 PM EST > Encounters Encounter Location Date Provider Diagnosis Main [address] [place], [place] [id number] 04/18/2025 Triston Perez GERD (gastroesopha geal reflux disease) K21.9 and Gastroesophageal reflux disease with esophagitis without hemorrhage K21.00 Assessments Encounter Date Diagnosis (ICD Code) Assessment Notes Treatment Notes Treatment Clinical Notes Section Notes 04/18/2025 GERD (gastroesophageal reflux di sease) (ICD-10 - K21.9) 04/18/2025Gastroesophageal reflux disease with esophagitis without hemorrhage (ICD-10 - K21.00) At this time, I'll refer to pig machine supervisor and Mario Alberto discussed other GI specialists. Although patient is located in [facility], it appears to be the closest option for patientincrease the pantoprazole from 40mg PO to 40mg twice a day. We discussed risk of having [facility] PPI use. Plan Of Treatment Medication Medication Name Sig Start Date Stop Date Notes Pantoprazole Sodium 40 MG Ta blet Delayed Release 1 tablet 1/2 to 1 hour before morning meal Orally twice a day; Duration: 60 days 04/18/2025 Treatment Notes Assessment Notes Gastroesophageal reflux dise ase with esophagitis without hemorrhage At this time, I'll refer to pig machine supervisor and Mario Alberto discussed other GI specialists. Although patient is located in [facility], it appears to be the closest option for patientincrease the pantoprazole from 40mg PO to 40mg twice a day. We discussed risk of having terminal carman PPI use. Referrals Referral Date Details 04/18/2025 04/18/2025, recurren t GERD despite PPI EGD done in September, Replaced By [facility] Next Appt Details Follow Up: 3 Months, Reason: GERD Provider Name:Rachel gar, 06/14/2025 12:45:00 PM, [address] [place] [address], [phone], Provider Name:Rachel gar, 06/21/2025 12:45:00 PM, [address] [place] [address], [phone], Provider Name:Rachel gar, 09/18/2025 10:45:00 AM, [address] [place] [address], [phone], History and Physical Notes * HPI (History of Present Illness) CategorySub-CategoryDetailNotesCategory NotesInterim History Patient presents for a GERD follow-up patient at EGD done in September showed esophagitis patient still has some having breakthrough symptoms regardless of the pantoprazole use patient reports that she is having pain in the chest area after eating. It gets worse after eating does not associate with any specific food Examination CategorySub-CategoryDetailNotesCategory NotesGeneral ExaminationGeneral appearance:alert, pleasant, well-nourished and in no acute distressHead: normocephalic, atraumaticEyes:pupils equal, round, reactive to light and accommodationThroat:clearHeart:regular rate and rhythm without murmurs, gallops, clicks or rubsLungs:clear to auscultation bilaterally, with good air movement and no rales, rhonchi or wheezesAbdomen:soft with good bowel sounds, nontender, and no masses or hepatosplenomegalyExtremities:normal extremity with no clubbing, cyanosis or edemaPsych:alert and oriented x 3CQM ExceptionsCurrently taking Aspirin:Aspirin Use:: Yes Consultation Request Notes Referral Date Referring Provider Referred Provider Not es 04/18/2025 Triston Perez Replaced By [facility], recurrent GERD despite PPI EGD done in September Progress Notes * Talita HALEOB:[birth year] (44 yo F)Acc No.[id number]:04/18/2025 Medical Note Patient: Janie Larson :?Triston StuddDOB:1980???Age:44 Y???Sex:Female Date:04/18/2025Phone:[phone]:[address], [place], [id number] Subjective: * Chief Complaints: * G ERD * HPI: ???Interim History:?Patient presents for a GERD follow-up patient at EGD done in September showed esophagitis patient still has some having breakthrough symptoms regardless of the pantoprazole use patient reports that she is having pain in the chest area after eating.? It gets worse after eating does not associate with any specific food. * ROS: ???Negative except mentioned above in the HPI. * Medical History: Asthma Depression Severe persistent asthma, poorly-controlled Gerd Medical History Verified? * Surgical History: Dilation and Curettage of Uterus ? Brain Surgery 1989-05-10? Pins/screws in left foot/leg ? EXTENSIVE HYSTERECTOMY 03/10/2017? Surgical History verified.? * Hospitalization/Major Diagno stic Procedure: [facility]- foot 07/2022? Hospitalization Verified.? * Family History: F ather: , diagnosed with Hypertension. M other: alive. P aternal Grand Father: , diagnosed with Diabetes. P aternal Grand Mother: , diagnosed with Diabetes. Maternal Grand Father: , diagnosed with Cancer. M aternal Grand Mother: .?Brother: alive. S ister: alive. F amily History Verified.. * Social History: Social History Verified. No Social History documented. * Medications: T akingTerbinafine HCl 250 MG Tablet 1 tablet Orally Once a day Pantoprazole Sodium 40 MG Tablet Delayed Release 1 tablet 1/2 to 1 hour before morning meal Orally Once a day Aspirin 81 MG Tablet Delayed Release 1 tablet Orally Once a day Vitamin D 50 MCG (1999) Tablet 1 tablet Orally Once a day lamoTRIgine 100 MG Tablet 1 tablet Orally Once a day CeleXA 20 MG Tablet 1 tablet Orally Once a day Breo Ellipta 200-25 MCG/INH Aerosol Powder Breath Activated INHALE 1 PUFF BY MOUTH IN THE MORNING Inhalation daily Albuterol Sulfate (2.5 MG/3ML) 0.083% Nebulization Solution 3 mL as needed Inhalation Three times a day Albuterol Sulfate HFA 108 (90 Base) MCG/ACT Aerosol Solution 1 puff as needed Inhalation every 4 hrs Azelastine HCl 137 MCG/SPRAY Solution USE 1 SPRAY(S) IN EACH NOSTRIL TWICE DAILY Nasal EPINEPHrine 0.3 MG/0.3ML Solution Auto-injector Injection Cetirizine HCl 10 MG Tablet 1 tablet Orally Once a day Montelukast Sodium 10 MG Tablet 1 tablet Orally Once a day traZODone HCl 100 MG Tablet Oral Denta 5000 Plus 1.1 % Cream [place] with toothpaste morning and night. Do not rinse after use. Dental Two times a day Fluticasone Propionate 50 MCG/ACT Suspension USE 1 SPRAY(S) IN EACH NOSTRIL TWICE DAILY IF SYMPTOMS PERSIST AFTER 1 WEEK INCREASE TO 2 SPRAYS EACH NOSTRIL TWICE DAILY Nasal Chlorhexidine Gluconate 0.12 % Solution Swish and spit one capful for 30 seconds after brushing Mouth/Throat Two times per day, AM and PM Colchicine 0.6 MG Tablet Oral Taking Terbinafine HCl 250 MG Tablet 1 tablet Orally Once a day Taking Pantoprazole Sodium 40 MG Tablet Delayed Release 1 tablet 1/2 to 1 hour before morning meal Orally Once a day Taking Aspirin 81 MG Tablet Delayed Release 1 tablet Orally Once a day Taking Vitamin D 50 MCG (1999) Tablet 1 tablet Orally Once a day Taking lamoTRIgine 100 MG Tablet 1 tablet Orally Once a day Taking CeleXA 20 MG Tablet 1 tablet Orally Once a day Taking Breo Ellipta 200-25 MCG/INH Aerosol Powder Breath Activated INHALE 1 PUFF BY MOUTH IN THE MORNING Inhalation daily Taking Albuterol Sulfate (2.5 MG/3ML) 0.083% Nebulization Solution 3 mL as needed Inhalation Three times a day Taking Albuterol Sulfate HFA 108 (90 Base) MCG/ACT Aerosol Solution 1 puff as needed Inhalation every 4 hrs Taking Azelastine HCl 137 MCG/SPRAY Solution USE 1 SPRAY(S) IN EACH NOSTRIL TWICE DAILY Nasal Taking EPINEPHrine 0.3 MG/0.3ML Solution Auto-injector Injection Taking Cetirizine HCl 10 MG Tablet 1 tablet Orally Once a day Taking Montelukast Sodium 10 MG Tablet 1 tablet Orally Once a day Taking traZODone HCl 100 MG Tablet Oral Taking Denta 5000 Plus 1.1 % Cream [place] with toothpaste morning and night. Do not rinse after use. Dental Two times a day Taking Fluticasone Propionate 50 MCG/ACT Suspension USE 1 SPRAY(S) IN EACH NOSTRIL TWICE DAILY IF SYMPTOMS PERSIST AFTER 1 WEEK INCREASE TO 2 SPRAYS EACH NOSTRIL TWICE DAILY Nasal Taking Chlorhexidine Gluconate 0.12 % Solution Swish and spit one capful for 30 seconds after brushing Mouth/Throat Two times per day, AM and PM Taking Colchicine 0.6 MG Tablet Oral Not-Taking/PRNAzithromycin 250 MG Tablet 2 day one 1 days 2-5 Orally daily predniSONE 50 MG Tablet 1 tablet with food or milk Orally Once a day Capmist DM 60-15-400 MG Tablet 1 tablet at 4 hour intervals as needed Orally Four times a day Meclizine HCl 12.5 MG Tablet 1 tablet as needed Orally every 12 hrs Medication List reviewed and reconciled with the patientNot-Taking/PRN Azithromycin 250 MG Tablet 2 day one 1 days 2-5 Orally daily Not-Taking/PRN predniSONE 50 MG Tablet 1 tablet with food or milk Orally Once a day Not-Taking/PRN Capmist DM 60-15-400 MG Tablet 1 tablet at 4 hour intervals as needed Orally Four times a day Not-Taking/PRN Meclizine HCl 12.5 MG Tablet 1 tablet as needed Orally every 12 hrs Medication List reviewed and reconciled with the patient * Allergies: A moxicillin: Comments: SOB - AllergyPenicillinyesAllergies Verified. Objective: * Vitals: T emp:97F, Wt:225.5lbs, Ht: 63 in, BMI:39.94Index, BP:116/83mm Hg, HR:94/min, RR:18/min, Pain scale:51-10, Oxygen sat %:96%, Wt-k.29 kg, Ht-cm: 160.02 cm, Body Surface Area: 2.13. She has pain in her right shoulder/ collar bone area when she lays down. She feels a tightness and like a pulling/ burning sensation when she reaches with that arm.Prema Costa 04/18/2025 04:14:15 PM EST > . * Examination: ???CQM Exceptions: ?Currently taking Aspirin:? Aspirin Use:?Yes?General Examination: ?General appearance:?alert, pleasant, well-nourished and inno acute distress.?Head:?normocephalic, atraumatic.?Eyes:?pupils equal, round, reactive to light and accommodation.?Throat:?clear.?Heart:?regular rate and rhythm without murmurs, gallops, clicks or rubs.?Lungs:?clear to auscultation bilaterally, with good air movement and no rales, rhonchi or wheezes.?Abdomen:?soft with good bowel sounds, nontender, and no masses or hepatosplenomegaly.?Extremities:?normal extremity with no clubbing, cyanosis or edema.?Psych:?alert and oriented x 3.? Assessment: * Assessment: 1.?GERD (gastroesophageal reflux disease) - K21.9 (Primary)???2.?Gastroesop hageal reflux disease with esophagitis without hemorrhage - K21.00??? Plan: * Treatment: Start Pantoprazole Sodium Tablet Delayed Release, 40 MG, 1 tablet 1/2 to 1 hour before morning meal, Orally, twice a day, 60 days, 120, Refills 0.?? Notes: At this time, I'll refer to pig machine supervisor and Mario Alberto solano other GI specialists. Although patient is located in [facility], it appears to be the closest option for patientincrease the pantoprazole from 40mg PO to 40mg twice a day. We discussed risk of having [facility] PPI use.? Referral To: Replaced By [facility]??Gastroenterology ?Reason:recurrent GERD despite PPI EGD done in September * Procedure Codes: 3 079F HTN DIAST BP = 80-101350M HTN SYST BP < 130 * Follow Up: 3 Months (Reason: GERD) Billing Information: * Visit Code: 13239 Office Visit Est 20-29 minutes. * Procedure Codes: 3079F HTN DIAST BP = 80-89. 3074F HTN SYST BP < 130. * ign off status: Completed true * Provider: Wellington Perez Date: 1 06/19/2024 Generated for Printing/Faxing/eTransmitting on:?04/30/2025 10:45 AM EST
--- OUTSIDE RECORDS SUMMARY | 2025-04-26 08:43 | XMS_ITS | Continuity of Care Document ---
Author Organization [facility] Address [address] [place] [address] Phone Care Team Providers Care Environmental Scientist Name Role Phone Ross Ureña MD Attending Provider Triston Perez PA-C Primary Care Provider [phone] Hector Goddard APRN Attending Provider Care Teams Patient Care Team Team Status: Active Member Role/Relationship Status Dates Triston Perez PA-C Primary Care Provider Active Visit Care Team Team Status: Active Member Role/Relationship Status Dates Ross Ureña MD Attending Provider Active Start: March 14, 2025 Patient Care Team Team Status: Inactive Member Role/Relationship Status Dates Triston Perez PA-C Primary Care Provider Active Start: April 26, 2025 End: April 26, 2025Noa Walton ProviderActiveStart: April 26, 2025 End: April 26, 2025 Chief Complaint and Reason for Visit Chief Complaint Admit Date BH March 14, 2025 1 0:41am GERD/ referred by Dr Perez April 1:05pm Allergies, Adverse Reactions, Alerts Allergen Type Severity Reaction Last Updated Verified Status Penicillins Allergy Unknown Difficulty Breathing Dec 2024 1:20pm Yes Active Social History Smoking Status Unknown if ever smoked Observation Status Observation Response Date of Response Legal Sex Female (finding) Sex Assigned At BirthFemaleJuly 1980 Family History Relationship Condition Age at Onset Recorded Date/T dino father Parkinson's disease Unknown HypertensionUnknownmotherAsthmaUnknownGastroesophageal reflux diseaseUnknown Diverticular diseaseUnknown Problems Active Problems Problem Diagnosis/Recorded Date Onset Date Stat us Severe obesity (BMI >= 40) August 09, 2023 10:45am Unk nown Active Medications Medication Status Dose Units Route Directions Qty Days Refills S tart Date Stop Date End Date Reason(s) Instructions Adherence Cetirizine 10 mg tablet Active 10 MG PO Daily October 05, 2023 11:00pmUnknownTriamcinolone Acetonide 0.1 % creamDiscontinued APPLICTOPICALMa2023 11:00pmDecember 2024 1:21pmFluticasone Furoate-Vilanterol (Breo Ellipta) 200-25 mcg/dose blister with deviceActive INHALATIONOctober 05, 2023 11:00pmUnknownLamotrigine 100 mg hadcpfHddsot302BAXU DailyOctober 05, 2023 11:00pmUnknownTrazodone 100 mg njpwxvZwhhqv820PBWLTfegh at bedtimeMay 2023 11:00pmUnknownCitalopram 20 mg cqbrbhVolfqw32JTAIGftjiPvw 28th, 2024 11:00pmUnknownBenralizumab (Fasenra) 30 mg/mL syringeActiveMGSUBCUT October 05, 2023 11:00pmUnknownOmeprazole 20 mg capsule,delayed release(DR/EC) Dxhdxazhqnaa97IXOQKiikqTww 28th, 2024 11:00pmDecemb2024 1:22pm Montelukast 10 mg gkgxycZyonwq47SHPAMpcxcHde 28th, 2024 11:00pmUnknown Cholecalciferol (Vitamin D3) 10 mcg (400 unit) kbarozeVrdwvy81IIRDPSyqxfXrj 28th, 2024 11:00pmUnknownAspirin (Adult Low Dose Aspirin) 81 mg tablet,delayed release (DR/EC)Dxhzdy98OVHHRhhhyRfe 28th, 2024 11:00pmUnknownPantoprazole 40 mg tablet,delayed release (DR/EC)ActiveMGPODecember 2024 12:00amUnknown Vital Signs Vital Reading Result Reference Range Collection Date/Time Height 64 [in_i] April 26, 2025 1:12hnVziwhh158.34 kgDecember 2024 1:19pmBMI (Body Mass Index)38.3 kg/s4Kyxxfrai 2024 1:19pm Advance Directives Advance Directive Response Recorded Date/ Time Advance Directives No July 12 8:14pm Insurance Providers Guarantor Janie Hale Address [address] [place] [address]Fgrfzpb Info.Home Phone: Coverage Status Update:2025 Payer Group Member ID Coverage Type Subscriber Relationship to Subscriber Effective Date Expiration Date Medicare Id: [id number] J Michael Id: [id number] [address] [place] [address] Home Phone: SelfAetna [facility] [id number] J Michael Id: [id number] [address] [place] [address] Home Phone: Self Encounters Encounter Location(s) Arrival/Admit Date Discharge/Departure Date Discharge/Departure Disposition Provider(s) Registered Zeeshan - More March 14, 2025 1 0:41am ZULMA [facility]24 1:41pmDischarged to home care or self care (routine discharge)Hector Goddard , HOSPITAL SALES REPRESENTATIVE
--- OUTSIDE RECORDS SUMMARY | 2025-04-30 11:00 | XMS_ITS | Encounter Summary ---
Author Organization [facility] Address [address] [place] [address] Care Team Providers Care Internet Merchant Name Role Phone Unavailable Primary Care Provider Unavailabl e Reason for Visit * ReasonCommentsWell Women Visit Encounter Details DateTypeDepartmentCare Team (Latest Contact Info)Cddymwponvf34/22/2025 11:00 AM ESTOffice Visit [facility] [address] [place] [id number] Alexey Etienne, [address] [place] [address] Well woman exam with routine gynecological exam; Hot flashes due to surgical menopause Social History Tobacco UseTypesPacks/DayYears UsedDateSmoking Tobacco: NeverAlcohol UseStandard Drinks/WeekCommentsNever0 (1 standard drink = 0.6 oz pure alcohol)Caffeine intake: 1-2 cups per day soda/popCommentsNoSex and Gender Information ValueDate RecordedSex Assigned at CxovvMrdfry41/20/2023 12:40 PM EDTLegal Sex Cfhxop6507/22/2022 6:37 PM EDTGender WwqgcuegVwpsyh27/20/2023 12:40 PM EDTSexual AjcgwwewagjBfgeoiip90/20/2023 12:40 PM EDTdocumented as of this encounter Last Filed Vital Signs Vital SignReadingTime TakenCommentsBlood Zjqgabnb551/7204/30/2025 10:59 AM EST Pulse--Temperature--Respiratory Rate--Oxygen Saturation--Inhaled Oxygen Concentration--Wzzgby061 kg (222 lb 6.4 oz)04/30/2025 10:59 AM ESTHeight--Body Mass Index38. 12:51 PM EDTdocumented in this encounter Progress Notes * Britmarkell Guaman LPN - 04/30/2025 11:00 AM EST Reason for Appointment: Patient ID: Janie Hale is a 44 y.o. female who presents for Well Women Visit Patient presents today for Annual Exam. MEDICATIONS Current Outpatient Medications Medication Instructions ARIPiprazole (Abilify) 10 MG tablet Every 24 hours BABY ASPIRIN PO Oral baclofen (Lioresal) 10 MG tablet TAKE 1 TABLET BY MOUTH TWICE DAILY NEEDED FOR 30 DAYS cetirizine (ZYRTEC) 10 mg, Daily citalopram (CeleXA) 10 MG tablet Every 24 hours dicyclomine (Bentyl) 20 MG tablet TAKE 1 TABLET BY MOUTH 4 TIMES DAILY BEFORE MEAL(S) (IN THE MORNING, AT NOON, IN THE EVENING, AND BEFORE BEDTIME) fluticasone (Flonase) 50 MCG/ACT nasal spray lamoTRIgine (LaMICtal) 100 MG tablet take 1 tablet (100MG) by ORAL route 2 times every day Oral montelukast (SINGULAIR) 10 mg, Daily omeprazole (PRILOSEC) 40 mg, Daily ALLERGIES Allergies Allergen Reactions Penicillins Shortness of breath Other reaction(s): anaphylaxis, hives Other Reaction(s): Unknown Other Reaction(s): Comments: SOB, Difficulty Breathing Other Reaction(s): Difficulty Breathing Cat Dander Dog Epithelium (Canis Lupus Familiaris) Other reaction(s): Unknown Penicillin G Other Reaction(s): anaphylaxis, hives PROBLEMS Active Ambulatory Problems Diagnosis Date Noted No Active Ambulatory Problems Resolved Ambulatory Problems Diagnosis Date Noted No Resolved Ambulatory Problems Past Medical History: Diagnosis Date Anxiety Asthma (HCC) Chronic sinusitis 2012 Depression Environmental allergies 2013 Headache HTN (hypertension) Pelvic pain Seizure disorder (HCC) HISTORY PAST MEDICAL HISTORY SOCIAL HISTORY Past Medical History: Diagnosis Date Anxiety Asthma (HCC) Chronic sinusitis 2013 Depression Environmental allergies 2014 Headache HTN (hypertension) Pelvic pain Seizure disorder (HCC) Social History Tobacco Use Smoking status: Never [...] SYSTEMS Review of Systems: Review of Systems Constitutional: Negative. HENT: Negative. Eyes: Negative. Respiratory: Negative. Cardiovascular: Negative. Gastrointestinal: Negative. Genitourinary: Negative. Musculoskeletal: Negative. Skin: Negative. Neurological: Negative. All other systems reviewed and are negative. Hematological: Negative. Endocrine: Negative. Allergic/Immunologic: Negative. OBJECTIVE Objective: Physical Exam Constitutional: Appearance: Normal appearance. She is well-developed. Genitourinary: Vulva normal. Vaginal cuff intact. Cervix is absent. Uterus is absent. Cardiovascular: Rate and Rhythm: Normal rate and regular rhythm. Abdominal: General: Bowel sounds are normal. There is no distension. Palpations: Abdomen is soft. Tenderness: There is no abdominal tenderness. There is no guarding or rebound. Musculoskeletal: General: No swelling. Normal range of motion. Right lower leg: No edema. Left lower leg: No edema. Neurological: Mental Status: She is alert and oriented to person, place, and time. Skin: General: Skin is warm and dry. Psychiatric: Mood and Affect: Mood normal. Behavior: Behavior normal. Vitals and nursing note reviewed. Exam conducted with a service parts driver present. Vitals: Estimated body mass index is 38.17 kg/m?? as calculated from the following: Height as of 11/24/22: 5' 4 . Weight as of this encounter: 222 lb 6.4 oz. BP: 110/72 No LMP recorded. Patient has had a hysterectomy. ASSESSMENT & PLAN ICD-10-CM 1. Well woman exam with routine gynecological exam Z01.419 THIN PREP TIS PAP AND HR HPV DNA No orders of the defined types were placed in this encounter. Annual Wellness Exam (Post Hysterectomy): Patient presents today for routine annual exam. Patient states she has complaints of hot flashes. Patients vitals were reviewed and within normal limits. Growth and development is noted to be appropriate for age. Menstrual history is noted to be obsolete due to patients history of hysterectomy. No mental health concerns was expressed. Pap Smear: Speculum was inserted into the vagina and pap was obtained without difficulty. HPV testing was performed per guidelines. Patient was advised that pap results could take anywhere from 7 to 10 days to receive and our office will reach out to the patient with those once we have them. Patient can also view results via [facility]. I reinforced importance of condom use for STI prevention. Patient declined cultures to be performed with today's visit. Breast Exam: Upon examination, clinical breast exam was noted to be normal. Patient was counseled on breast self-awareness, including the importance of knowing what is normal for her own breasts and promptly reporting any changes such as new lumps, skin dimpling, nipple discharge, or pain. Screening mammogram recommended annually beginning at age 40 or earlier if risk factors are present. Discussed signs and symptoms of breast cancer and when to seek medical attention. Answered all patient questions. Follow Up: Patient is to return to our office in one year for annual exam unless needed otherwise. Documented by Brit Guaman LPN on behalf of: Alexey Etienne DO documented in this encounter Plan of Treatment DateTypeDepartmentCare Team (Latest Contact Info)Xhlwohwbibt70/05/2027 10:00 AM ESTProcedure Visit [facility] [address] [place] [phone] Alexey Etienne DO [address] [place] [address] NameTypePriorityAssociated DiagnosesOrder ScheduleTHIN PREP TIS PAP AND HR HPV DNAPathology and CytologyRoutine Well woman exam with routine gynecological exam Ordered: 04/30/2025documented as of this encounter Visit Diagnoses Diagnosis Well woman exam with routine gynecological exam Routine gynecological examination Hot flashes due to surgical menopause documented in this encounter
--- OUTSIDE RECORDS SUMMARY | 2025-04-30 20:40 | XMS_ITS | Patient Health Record ---
Author Organization [facility] vices Address [address] [facility], [place] [id number] Care Team Providers Care Shipboard Intelligence Analyst Name Role Phone Triston Perez Primary Care Provider Rachel Ramsey Unavailable [phone] Joby Beauchamp Unavailable [phone] Camila Boston Unavailable [phone] Evelyn Luna Unavailable [phone] Maxim Tellez Unavailable [phone] Allergies Allergen (clinical drug ingredient) Drug/Non Drug Allergy documented on EMR Reaction Allergy Type Onset Date Status amoxicillin Amoxicillin Comments: SOB Drug Allergy ActivePenicillinUnknownDrug AllergyActive Results Component Value Reference Range Flag Notes VITAMIN D 25-HYDROXY Reviewed date:10/11/2024 12:45:36 PM Interpretation: Performing Lab: Notes/Report: VITAMIN D 25 HYD TOT 60.2 30.0-100.0 ng/mL Vitamin D status 25 [place] Vitamin D Deficiency <20 ng/mL Insufficiency 20-29 ng/mL Sufficiency 30-100 ng/mL Toxicity >100 ng/mL NOTE: A pediatric reference range has not been established by the medical device sales of this kit. The [place] [employer] recommends a Vitamin D level of = or >20ng/mL in infants and children. PERFORMED AT [facility] [address],[facility] [place] [address] VITAMIN B12 Reviewed date:10/11/2024 12:45:36 PM Interpretation: Performing Lab: Notes/Report:VITAMIN [id number] pg/mL PERFORMED AT [address] [place], [place] [address] CBC AND AUTOMATED DIFFERENTIAL Reviewed date:10/11/2024 12:45:36 PM Interpretation: Performing Lab: Notes/Report:WBC6.24-11 x10E9/LRBC COUNT4.593.8-5.2 X10E12/RTACQMDAAEI09.311.7- 15.5 g/mMVTIGMEHTJZ02.935-47 %UGO7844-362 fLMCH29.027-34 maBKHK92.432-36 g/dLRDW 14.311.5-15 %PLATELET HSOTQ018094-230 X10E9/LMPV10.77-12 fLEOSINOPHILS RELATIVE PERCENT BY AUTOMATED COUNT0.0BASOPHILS RELATIVE PERCENT BY AUTOMATED COUNT2.1 NEUTROPHILS ABSOLUTE COUNT BY AUTOMATED COUNT4.41.5-6.6 10*3/uLLYMPHOCYTES ABSOLUTE COUNT (10*3/UL) BY AUTOMATED COUNT1.31.0-3.5 10*3/uLMONOCYTES ABSOLUTE COUNT (10*3/UL) BY AUTOMATED COUNT0.30.0-0.9 10*3/uLEOSINOPHILS ABSOLUTE COUNT (10*3/UL) BY AUTOMATED COUNT0.00.0-0.4 10*3/uLCELLAVISION DIFFERENTIAL TYPE AUTOMATED DIFFERENTIAL PERFORMED AT [address] [place], [place] [address] NEUTROPHILS RELATIVE PERCENT BY AUTOMATED COUNT71.9LYMPHOCYTES RELATIVE PERCENT BY AUTOMATED COUNT20.9MONOCYTES RELATIVE PERCENT BY AUTOMATED COUNT5.1BASOPHILS ABSOLUTE COUNT (10*3/UL) BY AUTOMATED COUNT0.10.0-0.2 10*3/uLCOMPREHENSIVE METABOLIC PANEL Reviewed date:10/11/2024 12:45:36 PM Interpretation: Performing Lab: Notes/Report: PERFORMED AT [address] [place] [address] not use a race coefficient. CKD-EPI 2020 equation that does Reported eGFR is based on fzoYKZWDV949089-123 mmol/LPOTASSIUM4.33.5-5.0 mmol/L MJWDCNPP21049-911 mmol/LCARBON ZNSSHVN1239-52 mmol/LANION BWT34-77 mmol/LBLOOD UREA PRKTPTQS092-91 mg/dLCREATININE0.710.40-1.00 mg/dLMETHOD TRACEABLE TO IDMS HJWFJCFEBRDGZYC8296-03 mg/dLCALCIUM9.38.5-10.5 mg/dLTOTAL PROTEIN7.56.0-8.0 g/dL ALBUMIN4.23.2-5.3 g/dLALKALINE KUDRPIQDLTV8352-317 U/LAST14<=41 U/L BILIRUBIN,TOTAL0.70.3-1.2 mg/dLALT13<=31 U/LEGFR (CKD-EPI) NON-RACE DEPENDENT>90 >=60 ml/min/1.73sq.Xi PROFILE Reviewed date:10/11/2024 12:45:36 PM Interpretation: Performing Lab: Notes/Report:ICQU0019-857 ug/dLIRON YWZNWBI281439-118 ug/dLIRON JAGMKCCONM0111- 50 % SATURATION PERFORMED AT [address], [place] [address] ALDUPLXMGSI770952-687 mg/dLHEMOGLOBIN A1C (GLYCO-HGB) Reviewed date:10/11/2024 12:45:36 PM Interpretation: Performing Lab: Notes/Report:HEMOGLOBIN A1C5.64.4-5.6 % ADA Guidelines Result HgbA1c Normal : less than 5.7 % Prediabetes : 5.7 % to 6.4 % Diabetes : > 6.4 % Use with caution in patients with abnormal hemoglobin variants as the half-life of red blood cells and in vivo glycation rates are affected. EST. AVERAGE BMQYHEM579 PERFORMED AT [address], [place] [address] LIPID PROFILE Reviewed date:10/11/2024 12:45:36 PM Interpretation: Performing Lab: Notes/Report:IUMGXSRNRAM120176-203 mg/eHTJPFHGRGIZIOQ6181-020 mg/dLHDL BTSAWVVPYYZ27>39 mg/dL HDL <40 mg/dL - High Risk HDL > or = 40mg/dL- Desirable HDL >60 mg/dL - Negative Risk LDL (CALC)84<130 mg/dL LDL <100 mg/dL - Desirable LDL >160 mg/dL - High Risk CHOLESTEROL:HDL3.31.0-5.0 NAVERY LOW YHECTCLPXGW170-63 mg/dL PERFORMED AT [address],[place] [address] THYROID PROFILE Reviewed date:10/11/2024 12:45:36 PM Interpretation: Performing Lab: Notes/Report:FREE T40.790.61-1.60 ng/dLTSH1.880.49-4.67 uIU/mL PERFORMED AT [address],[place] [address] Cologuard Reviewed date:01/09/2025 01:53:23 PM Interpretation: Performing Lab: Notes/Report: CologuardNegative Reason For Referral Reason EGD possible duodena l ulcer Diagnosis 1 GERD (gastroesophage al reflux disease) (K21.9) Referral Organization Main Referring Provider First Name Triston Referring Provider Last Name Chris Referring Provider Speciality Physician Nozzle Tender Referred Provider Geoffrey Mendoza Referred Provider Specialty General Surg avril General Notes Cecelia Chowdhury 09/07 10:34:00 AM >{ {TOFIRSTNAME}} This is [facility] following up on an outstanding referral that was ordered by your provider. Please call our office at , so we can _update our records.Qing Christina 10/09/2024 03:37:55 PM >Note from general surgery in chart. ceb Referral Priority Routine Referral Appointment Date 09/06/2024 Reason Please evaluate and treat accordingly Diagnosis 1 Gum inflammation (K0 5.10) Referral Organization Dental Main Referring Provider First Name Maxim Referring Provider Last Name Geoff Referring Provider Speciality Dental Car e Referred Provider Linh Periodontic s and Dental ImplantsLinh Referred Provider Specialty Periodontics General Notes Adriane Nichols 2024 10:32:16 AM >Janie has not gotten around to scheduling a appt once she has she will call back and let me know.03-21-25, Valarie Vasquez 04/02/2025 09:22:08 AM EST > Pt has decided to take her referral to [facility] in [place]. Release of records was filled out and referral, xrays, and clinical notes from 03/06/2025 were sent. Clinical Notes Radha Carnes RDH 03/06 12:02:24 PM >Hard copy given to the patient in operatory. Patient verbally understands referral process. Referral Priority Routine Reason recurrent GERD despi te PPI EGD done in September Diagnosis 1 Gastroesophageal ref lux disease with esophagitis without hemorrhage (K21.00) Referral Organization Main Referring Provider First Name Triston Referring Provider Last Name Chris Referring Provider Speciality Physician Nozzle Tender Referred Provider Solo daniel Referred Provider Specialty Gastroentero logy Referral Priority Routine Medications Medication SIG (Take, Route, Frequency, Duration) Notes Start Date End Date Status Pantoprazole Sodium 40 MG Ta blet Delayed Release 1 tablet 1/2 to 1 hour before morning meal Orally twice a day; Duration: 60 days 5ActiveTerbinafine HCl 250 MG Tablet1 tablet Orally Once a day; Duration: 90 days5ActivePantoprazole Sodium 40 MG Tablet Delayed Release1 tablet 1/2 to 1 hour before morning meal Orally Once a day; Duration: 90 days5ActiveAspirin 81 MG Tablet Delayed Release1 tablet Orally Once a dayActiveVitamin D 50 MCG (2000 UT) Tablet1 tablet Orally Once a dayActive lamoTRIgine 100 MG Tablet1 tablet Orally Once a dayActiveFluticasone Propionate 50 MCG/ACT SuspensionUSE 1 SPRAY(S) IN EACH NOSTRIL TWICE DAILY IF SYMPTOMS PERSIST AFTER 1 WEEK INCREASE TO 2 SPRAYS EACH NOSTRIL TWICE DAILY Nasal; Duration: 30 DaysActiveCeleXA 20 MG Tablet1 tablet Orally Once a day09/22/2018 ActiveChlorhexidine Gluconate 0.12 % SolutionSwish and spit one capful for 30 seconds after brushing Mouth/Throat Two times per day, AM and PM; Duration: 30 days5ActiveBreo Ellipta 200-25 MCG/INH Aerosol Powder Breath Activated INHALE 1 PUFF BY MOUTH IN THE MORNING Inhalation daily; Duration: 90 daysActive Colchicine 0.6 MG TabletOral; Duration: 90 DaysActiveAlbuterol Sulfate (2.5 MG/3ML) 0.083% Nebulization Solution3 mL as needed Inhalation Three times a day; Duration: 30 daysActiveAzithromycin 250 MG Tablet2 day one 1 days 2-5 Orally daily; Duration: 5 days01/01/2025Not-Taking/PRNAlbuterol Sulfate HFA 108 (90 Base) MCG/ACT Aerosol Solution1 puff as needed Inhalation every 4 hrs; Duration: 30 days05/08/2022ctivepredniSONE 50 MG Tablet1 tablet with food or milk Orally Once a day; Duration: 5 day(s)01/01/2025Not-Taking/PRNAzelastine HCl 137 MCG/SPRAY SolutionUSE 1 SPRAY(S) IN EACH NOSTRIL TWICE DAILY Nasal; Duration: 50 DaysActiveCapmist DM 60-15-400 MG Tablet1 tablet at 4 hour intervals as needed Orally Four times a day; Duration: 7 days12/14/2024Not-Taking/PRNEPINEPHrine 0.3 MG/0.3ML Solution Auto-injectorInjection; Duration: 2 DaysActiveMeclizine HCl 12.5 MG Tablet1 tablet as needed Orally every 12 hrs; Duration: 30 days 03/24/2023Not-Taking/PRNCetirizine HCl 10 MG Tablet1 tablet Orally Once a day; Duration: 90 daysActiveMontelukast Sodium 10 MG Tablet1 tablet Orally Once a day; Duration: 90 days08/06/2021ctivetraZODone HCl 100 MG TabletOral; Duration: 90 DaysActiveDenta 5000 Plus 1.1 % CreamBrush with toothpaste morning and night. Do not rinse after use. Dental Two times a day; Duration: 30 days08/24/2024 Active Social History Tobacco Use: Social History Observation Description Date Details (start date - stop date) Never Smoker NA - NA Sex Assigned At : Social History Observation Description Sex Assigned At Female Social History Social DeterminantsSocial InfoQuestionAnswerNotesPRAPAREDate Completed/Updated: 03/07/2025patient entered dataWhat is your current housing situation?I have housingpatient entered dataAre you worried about losing your housing?No patient entered dataWhat is the highest level of school that you have finished?High school diploma or GEDpatient entered dataWhat is your current work situation?Otherwise unemployed but not seeking work (ex. student, retired, disabled, unpaid primary healthcare management)patient entered dataIn the past year, have you or any family members you live with been unable to get any of the following when it was really needed? Check all that applyI do not have problems meeting my needsHas lack of transportation kept you from medical appointments, meetings, work or from getting things needed for daily living?NoHow often do you see or talk to people that you care about and feel close to? (For example: talkingto friends on the phone, visiting friends or family, going to congregation or club meetings)1 or 2 times a weekpatient entered dataHow stressed are you? Stress is when someone feels tense, nervous, anxious, or can't sleep at night because their mind is troubledNot at allpatient entered dataIn the past year have you spent more than 2 nights in a row in a nursing home, mcfp, custodial center, orjuvenile correctional facility?Nopatient entered dataAre you a refugee?No patient entered dataWhat country are you from?[place] Statespatient entered dataDo you feel physically and emotionally safe where you currently live?Yes patient entered dataIn the past year, have you been afraid of your partner or ex-partner?Nopatient entered dataPRAPARE Score:5Limited Patient Authorization Social InfoQuestionAnswerNotesLimited Patient AuthorizationI authorize [facility] to disclose or provide protected health information about me.Yes patient entered data? I authorize the following person to receive messages and/or paperwork for me to make inquiries concerning my healthcare. (Enter Name) Hemalatha Halepatient entered data? Enter the phone number of the individual to whom the doctor and staff have permission to release information. [phone] entered dataSexual History:Social InfoQuestionAnswerNotes Family PlanningAre you or your partner planning on becoming in the next year if not already ?No? What type of contraception are you using?None PCMH and UDS DemographicsSocial InfoQuestionAnswerNotesPriColumbia Regional Hospital [facility] QuestionsDo you have any barriers to learning?Nonepatient entered dataWhat is your preferred method of learning?Readingpatient entered dataHow often do you need to have someone help you read instructions?Neverpatient entered data Household:Social InfoQuestionAnswerNotesHouseholdMarital status:singleNumber of adults in household:1Number of children in household:0Drugs/Alcohol/Caffeine: Social InfoQuestionAnswerNotesAlcohol Screen (Audit-C)Did you have a drink containing alcohol in the past year?KtPdyvhc4GhrltpqqfbpoylYrqrzwnnTougdCbir you used drugs other than those for medical reasons in the past 12 months?NoCAGE-AID Questionnaire (2018 Edition)Have you ever felt that you ought to cut down on your drinking or drug use?Nopatient entered dataHave people annoyed you by criticizing your drinking or drug use?Nopatient entered dataHave you ever felt bad or guilty about your drinking or drug use?Nopatient entered dataHave you ever had a drink or used drugs first thing in the morning to steady your nerves or to get rid of a hangover?Nopatient entered dataCAGE-AID Score0 InterpretationNegativeCaffeineIntake:1-2 cups per dayTobacco Use:Social Info QuestionAnswerNotesTobacco Control (Standard)Tobacco use:NonsmokerTobacco Use/SmokingTobacco use:nonsmokerpatient entered dataAdditional Details CategorySocial InfoOptionsDetailsMiscellaneous:Occupation:unemployed Culture/Language BarrierNoEducation LevelGrade 7-12Barriers to LearningNone Learning PreferenceWatching a videoHow often do you need to have someone help you read instructionsSometimesSexual History:Family Planning: Primary method for femaleno methodSafetyPatient feels safe in relationshipsYes Drugs/Alcohol/Caffeine:Do you drink alcohol?No Problems Problem Type SNOMED Code ICD Code Onset Dates Problem Status W/U Status Risk Notes Problem Obesity (754079808) Obesity, unspecified (E66.9) ActiveconfirmedProblemSeasonal allergy (251263291)Seasonal allergies (J30.2) ActiveconfirmedProblemBody mass index 35.00 to 39.99 (082629365751288)Body mass index [BMI] 36.0-36.9, adult (Z68.36)ActiveconfirmedProblemObese class II (666389262332644)BMI 38.0-38.9,adult (Z68.38)ActiveconfirmedProblemInsomnia (624955848)Insomnia, unspecified type (G47.00)ActiveconfirmedProblemPeripheral venous insufficiency (25681364)Edema of lower extremity due to peripheral venous insufficiency (I87.2)ActiveconfirmedProblemConstipation (26501332)Constipation (K59.00)ActiveconfirmedProblemMeniere disease (07933141)Meniere disease, right (H81.01)ActiveconfirmedProblemGastroesophageal reflux disease with esophagitis (disorder) (566426729)Gastroesophageal reflux disease with esophagitis without hemorrhage (K21.00)ActiveconfirmedProblemAllergic rhinitis (80475905)Allergic rhinitis, unspecified seasonality, unspecified trigger (J30.9)Activeconfirmed ProblemAsthma without status asthmaticus (14149730)Asthma, unspecified asthma severity, unspecified whether complicated, unspecified whether persistent (J45.909)Activeconfirmedmanaged by pulmonologyProblemchronic gingivitis (96606194)Gum inflammation (K05.10)ActiveconfirmedProblemGastroesophageal reflux disease (315120452)GERD (gastroesophageal reflux disease) (K21.9)Active confirmed Comment:-recent hx of excessive GERD sxs with large meals and caffeine use -denies use of spicy food and alcohol consumption -started on trial of Omeprazole 20mg PO QD -continue to avoid vikki and spicy meals especially at dinner time -can use 2 pillows, increase fluid intake -denies dysphagia or odynophagia -may get EGD and or referral to GI if sxs continue with Omeprazole -f/u in 3 months, ProblemDepression (238310398)Depression (F32.A)Activeconfirmed Comment:-refilled Celexa 20mg PO QD as she is tolerating well and feels fine with current regimen -cw cooping mechanism and meditation as able -cw appointments at [facility] for counselling sessions -f/u in 3 months, Vital Signs Heart Rate 94 /min 04/18/2025 She has pain in her right shoulder/ collar bone area when she lays down. She feels a tightness and like a pulling/ burning sensation when she reaches with that arm. Igor Prema 04/18/2025 04:14:15 PM EST > Temperature 97 degrees Fahrenheit 04/18/2025 She ledesma s pain in her right shoulder/ collar bone area when she lays down. She feels a tightness and like a pulling/ burning sensation when she reaches with that arm. Prema Costa 04/18/2025 04:14:15 PM EST > Respiratory Rate 18 /min 04/18/2025 She has [place] n in her right shoulder/ collar bone area when she lays down. She feels a tightness and like a pulling/ burning sensation when she reaches with that arm. Prema Costa 04/18/2025 04:14:15 PM EST > Oximetry 96 % 04/18/2025 She has pain in her right shoulder/ collar bone area when she lays down. She feels a tightness and like a pulling/ burning sensation when she reaches with that arm. Prema Costa 04/18/2025 04:14:15 PM EST > Blood pressure diastolic 83 mm Hg 04/18/2025 She has pain in her right shoulder/ collar bone area when she lays down. She feels a tightness and like a pulling/ burning sensation when she reaches with that arm. Prema Costa 04/18/2025 04:14:15 PM EST > Height-cm 160.02 cm 04/18/2025 She has pain in her right shoulder/ collar bone area when she lays down. She feels a tightness and like a pulling/ burning sensation when she reaches with that arm. Prema Costa 04/18/2025 04:14:15 PM EST > Weight-kg 102.29 kg 04/18/2025 She has pain in her right shoulder/ collar bone area when she lays down. She feels a tightness and like a pulling/ burning sensation when she reaches with that arm. Prema Costa 04/18/2025 04:14:15 PM EST > Height 63 in 04/18/2025 She has pain in her right shoulder/ collar bone area when she lays down. She feels a tightness and like a pulling/ burning sensation when she reaches with that arm. Prema Costa 04/18/2025 04:14:15 PM EST > Blood pressure systolic 116 mm Hg 04/18/2025 She has pain in her right shoulder/ collar bone area when she lays down. She feels a tightness and like a pulling/ burning sensation when she reaches with that arm. Prema Costa 04/18/2025 04:14:15 PM EST > Weight 225.5 lbs 04/18/2025 She has pain in her right shoulder/ collar bone area when she lays down. She feels a tightness and like a pulling/ burning sensation when she reaches with that arm. Prema Costa 04/18/2025 04:14:15 PM EST > BMI 39.94 kg/m2 04/18/2025 She has pain in her right shoulder/ collar bone area when she lays down. She feels a tightness and like a pulling/ burning sensation when she reaches with that arm. Prema Costa 04/18/2025 04:14:15 PM EST > Encounters Encounter Location Date Provider Diagnosis Dental Main [address] [place], [place] [id number] 05/31/2024 Rachel Ramsey Dental Iksd5592 [place], [place] [id number]/[facility] Encounter for screening for dental disorders Z13.84 ; Encounter for dental examination and cleaningwith abnormal findings Z01.21 ; Dental jain status Z98.811 and Dental caries into dentine K02.62Dental Ddyh6230 [place], [place] [id number]/[facility] for [facility] disorders Z13.84 ; Encounter for dental examination and cleaningwith abnormal findings Z01.21 and Dental caries into dentine K02.52Pmwu9881 [place], [place] [id number]/Justin StuddGERD (gastroesophageal reflux disease) K21.9 and Allergic rhinitis, unspecified seasonality, unspecified trigger J30.9Dental [address] [place] [id number]/Jessica HatalaBMI 38.0- 38.9,adult Z68.38 and Dental caries into dentine K02.44Aisf6668 [place], [place] [id number]/Justin StuddGERD (gastroesophageal reflux disease) K21.9 and Constipation K59.00Dental Icoz0293 [place], [place] [id number]/Jessica HatalaNecrosis of pulp K04.1 and Encounter for dental examination and cleaning with abnormal findings Z01.04Vjdi0399 [place], [place] [address]/06/2024Justin StuddLow back pain M54.50 ; Vertigo R42 and Screening for diabetes mellitus Z13.1Dental Ygfv3685 [place], [place] [id number]/08/2024Jessica XmgiyvHqsi6721 [place], [place] [id number] 10/23/2024Justin StuddDizziness M78Aqjv4469 [place], [place] [id number] 12/14/2024Justin StuddOnychomycosis B35.1 ; GERD (gastroesophageal reflux disease) K21.9 and Acute cough R05.3Noqx5222 [place], [place] [id number] 12/25/2024Justin StuddGERD (gastroesophageal reflux disease) K21.9 and Screening for colorectal cancer Z12.11Dental Zafi[address] [place] [id number] 12/26/2024ourtwray LevineEncounter for screening for dental disorders Z13.84 and Dental caries into dentine K02.83Nxar5724 [place], [place] [id number] 01/01/2025Justin StuddLower resp. tract infection R65Laxjfu Hgrc8259 [place], [place] [id number] LevineDental caries into dentine K02.62 and Encounter for screening for dental disorders Z13.84Dental W[address] [place] [id number]/28/2025Eanas AbutahaDietary counseling Z71.3 ; Exercise counseling Z71.82 and Encounter for dental examination and cleaning with abnormal findings Z01.03Jenq8492 [place], [place] [id number] 03/07/2025Justin StuddEncounter for wellness examination in adult Z00.00 ; Screening for colon cancer Z12.11 ; Dietary counseling Z71.3 and Exercise counseling Z71.82Dental Porr9908 [facility], [place] [id number]/ Rachel LevineDental caries into dentine K02.21Gixl8075 [place], [place] [address]/02/2025Justin StuddGERD (gastroesophageal reflux disease) K21.9 and Gastroesophageal reflux disease with esophagitis without hemorrhage K21.00Main [address] [facility], [place] [id number]/Justin FxrkkAeib4697 [place], [place] [id number]/Katherine IutpmpzknBupr0456 [place], [place] [address]/Katherine MyerholtzGERD (gastroesophageal reflux disease) K21.9Dental Szvn9297 [place], [place] [id number]/Joby Beauchamp Kpkv8891 [place], [place] [id number]/07/2024Justin NattzOnnh8346 [place], [place] [id number]/Justin Studd Assessments Encounter Date Diagnosis (ICD Code) Assessment Notes Treatment Notes Treatment Clinical Notes Section Notes 10/09/2024 Low back pain (ICD-10 - M54.50) pts low back pain is likely MSK related start naproxen 2 times daily discussed side ffects and to eat with this and drink plenty of water 10/23/2024Dizziness (ICD-10 - R42) Pts dizziness is likely associated with medications prescribed by specialist encouraged to report symptoms to specialist and discuss medication changes pt agreeable with plan follow in 2 months pt will go to the Er with any new or worsening symptoms of but not limited to chest pain, shortnessof breath, blurry vision, or headaches 12/14/2024Onychomycosis (ICD-10 - B35.1) Toe appears to be onchymoycoiss will start terbinafine offered podiatry referral pt declined follow in 3 months 12/25/2024GERD (gastroesophageal reflux disease) (ICD-10 - K21.9) continue the protonix at this time follow up in march plan to D/c a that time 01/01/2025Lower resp. tract infection (ICD-10 - J22) Based on exam including the rhonchi I believe this could be a pneumonia or bronchinits and will treat for community acquired pathogens start azithromycin and prednisone discussed red flag symptoms pt to stay hydrated and rest 04/18/2025 (gastroesophageal reflux disease) (ICD-10 - K21.9)04/18/2025 Gastroesophageal reflux disease with esophagitis without hemorrhage (ICD-10 - K21.00) At this time, I'll refer to tube bending machine operator and Mario Alberto discussed other GI specialists. Although patient is located in [facility], it appears to be the closest option for patientincrease the pantoprazole from 40mg PO to 40mg twice a day. We discussed risk of having steel fitter PPI use. 03/06/2025Dietary counseling (ICD-10 - Z71.3)01/25/2025Dental caries into dentine (ICD-10 - K02.62)12/26/2024Encounter for screening for dental disorders (ICD-10 - Z13.84)12/14/2024GERD (gastroesophageal reflux disease) (ICD-10 - K21.9) has been well managed with the protonox will contnue for another 3 monhts at that time will trial D/c the medication 10/09/2024Vertigo (ICD-10 - R42) pts vertigo is unclear at this time DDx consider include polypharmacy, defeincies, and other pt will follow in 2 weeks pt will go to the Er with any new or worsening symptoms of but not limited to chest pain, shortnessof breath, blurry vision, or headaches 10/05/2024GERD (gastroesophageal reflux disease) (ICD-10 - K21.9) I believe that the chest pain is likely due to GERD symptoms as it is not exacerbated by exercise, associated with any other symptoms to be concerning for cardiac concerns, I have also considered cholelithiasis I will switch pt to pantoprazole form omeprazole at this time pt educated on whent o be seen in the ER pt will follow in 6 weeks for gerd pt is agreeable with the plan 10/05/2024onstipation (ICD-10 - K59.00) For her straining symptoms I will start the patient on docusate sodium will continue to monitor bowel movements if no improvement further workup may be needed 10/05/2024Necrosis of pulp (ICD-10 - K04.1)08/24/2024Encounter for screening for dental disorders (ICD-10 - Z13.84)08/31/2024Encounter for screening for dental disorders (ICD-10 - Z13.84)09/04/2024GERD (gastroesophageal reflux disease) (ICD-10 - K21.9)09/04/2024GERD (gastroesophageal reflux disease) (ICD-10 - K21.9) due to patients hisotry of Gerd i will refer to [facility] for EGD I will also start the patient on the sucrfalte as the symptoms are consistent with duodenal ulcer pt will follow after they see general surgery 09/04/2024llergic rhinitis, unspecified seasonality, unspecified trigger (ICD- 10 - J30.9) At this point i believe these symptoms are likely allergic related i discussed with patient, and they verbalized understanding pt will use Flonase at this time follow up 4 weeks call or return with worsening or failure to improve 09/19/2024MI 38.0-38.9,adult (ICD-10 - Z68.38)03/07/2025Encounter for wellness examination in adult (ICD-10 - Z00.00) Pt is here for wellness today. Overall health is okay. I advised regular exercise and eating a balanced diet with focus on eating less fried and fatty foods and eating more fresh fruits and vegetable in an attempt to achieve and maintain a healthy BMI and PVU labs are up to date 03/07/2025Screening for colon cancer (ICD-10 - Z12.11)03/08/2025Dental caries into dentine (ICD-10 - K02.62)03/07/2025Dietary counseling (ICD-10 - Z71.3) 08/24/2024Encounter for dental examination and cleaning with abnormal findings (ICD-10 - Z01.21)09/19/2024Dental caries into dentine (ICD-10 - K02.62) 10/05/2024Encounter for dental examination and cleaning with abnormal findings (ICD-10 - Z01.21)12/26/2024Dental caries into dentine (ICD-10 - K02.62) 12/14/2024ute cough (ICD-10 - R05.1)12/25/2024Screening for colorectal cancer (ICD-10 - Z12.11)01/25/2025Encounter for screening for dental disorders (ICD-10 - Z13.84)08/31/2024Encounter for dental examination and cleaning with abnormal findings (ICD-10 - Z01.21)03/06/2025Exercise counseling (ICD-10 - Z71.82) 03/07/2025Exercise counseling (ICD-10 - Z71.82)03/06/2025Encounter for dental examination and cleaning with abnormal findings (ICD-10 - Z01.21)10/09/2024 Screening for diabetes mellitus (ICD-10 - Z13.1)08/31/2024Dental caries into dentine (ICD-10 - K02.62)08/24/2024Dental jain status (ICD-10 - Z98.811) 08/24/2024Dental caries into dentine (ICD-10 - K02.62) Plan Of Treatment Pending Test Test Name Order Date 2019 NOVEL CORONAVIRUS (COVID-19), ANUSHA L C - SEND (49072) 04/02/2020 Next Appt Details Provider Name:Rachel gar, 06/14/2025 12:45:00 PM, [address] [place] [address], [phone], Provider Name:Rachel gar, 06/21/2025 12:45:00 PM, [address] [place] [address], [phone], Provider Name:Rachel gar, 09/18/2025 10:45:00 AM, [address] [place] [address], [phone], Insurance Providers Payer Name Payer Address Payer Phone Subscriber Number Group Number Insured Name Patient Relationship to Insured Coverage Start Date Coverage End Date [employer] [facility] [address] [place] [phone] [id number] Janie Olmedo Self - patient is the insured 5 Aetna MedicarePO [address] [place] [id number] Ramy Montgomeryelf - patient is the [id number] 2024 Medical (General) History Medical History History ICD Code Asthma DepressionSevere persistent asthma, poorly-controlledgerdSurgical History Surgery Date(Month/Year) Dilation and Curettage of Uterus Brain Meduhjf6714-42-60Qqte/screws in left foot/legEXTENSIVE HYSTERECTOMY 03/10/2017Hospitalization History Reason Date(Month/Year) [facility]- foot 07/2022
--- OUTSIDE RECORDS SUMMARY | 2025-04-30 20:40 | XMS_ITS | Encounter Summary ---
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 Name Role Phone Unavailable Primary Care Provider Unavailabl e Encounter Details DateTypeDepartmentCare Team (Latest Contact Info)Lyxjdsaywby17/22/2025amboo flowsheet [facility] [address] [place] [address] Alexey Etienne DO [address] [place] [address] [place], [facility] Social History Tobacco UseTypesPacks/DayYears UsedDateSmoking Tobacco: NeverAlcohol UseStandard Drinks/WeekCommentsNever0 (1 standard drink = 0.6 oz pure alcohol)Caffeine intake: 1-2 cups per day soda/popCommentsNoSex and Gender Information ValueDate RecordedSex Assigned at SynegEwkdso23/20/2023 12:40 PM EDTLegal Sex Vykyyz1007/22/2022 6:37 PM EDTGender KmzuwmuwSqkwlb97/20/2023 12:40 PM EDTSexual EbaubrcngetUwmgerbx39/20/2023 12:40 PM EDTdocumented as of this encounter Plan of Treatment DateTypeDepartmentCare Team (Latest Contact Info)Cahatqxpblb36/05/2027 10:00 AM ESTProcedure Visit JOSHUA CHRISTIANSON [address] [place] [address] Alexey Etienne DO [address] [place] [address] documented as of this encounter Visit Diagnoses Not on filedocumented in this encounter
--- OUTSIDE RECORDS SUMMARY | 2025-04-30 20:40 | XMS_ITS | Clinical Summary ---
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 Name Role Phone Unavailable Primary Care Provider Unavailabl e Allergies Active AllergyReactionsCriticalityNoted DateCommentsCat Rndgro834Dog Epithelium (Canis Lupus Familiaris)02/11/2021 Other reaction(s): Unknown Penicillin G010/26/2022 Other Reaction(s): anaphylaxis, hives PenicillinsShortness of khahubFfwa91/31/2020 Other reaction(s): anaphylaxis, hives Other Reaction(s): Unknown Other Reaction(s): Comments: SOB, Difficulty Breathing Other Reaction(s): Difficulty Breathing Medications MedicationSigDispense QuantityRefillsLast FilledStart DateEnd DateStatus lamoTRIgine (LaMICtal) 100 MG tablet take 1 tablet (100MG) by ORAL route 2 times every day OralActive ARIPiprazole (Abilify) 10 MG tablet 1 (one) time each day at the same time.Active baclofen (Lioresal) 10 MG tablet TAKE 1 TABLET BY MOUTH TWICE DAILY NEEDED FOR 30 DAYS04/09/2022ctive citalopram (CeleXA) 10 MG tablet 1 (one) time each day at the same time.Active BABY ASPIRIN PO Take by mouth.Active cetirizine (ZyrTEC) 10 MG tablet Take 10 mg by mouth Daily09/14/2023ctive fluticasone (Flonase) 50 MCG/ACT nasal spray 04/20/2024ctive montelukast (Singulair) 10 MG tablet Take 10 mg by mouth Daily04/16/2024ctive omeprazole (PriLOSEC) [address] capsule Take 40 mg by mouth Daily03/09/2024ctive dicyclomine (Bentyl) 20 MG tablet Indications:Abdominal crampingTAKE 1 TABLET BY MOUTH 4 TIMES DAILY BEFORE MEAL(S) (IN THE MORNING, AT NOON, IN THE EVENING, AND BEFORE BEDTIME) 120 tablet 5Active estradiol (Climara) 0.05 MG/24HR Indications:Hot flashes due to surgical menopausePlace 1 patch over 7 days on the skin 1 (one) time per week 12 patch ctive Encounters DateTypeDepartmentCare CtiuQwzhdncjsvo17/22/2025 11:00 AM ESTOffice Visit [facility] [address] [place] [address] Alexey Etienne DO Well woman exam with routine gynecological exam; Hot flashes due to surgical wwrucbyzi29/22/2025amboo flowsheet [facility] [address] [place] [address] Alexye Etienne DO from Last 3 Months Family History Medical HistoryRelationNameCommentsNo Known ProblemsBrotherDiabetesFather HypertensionFatherCancerMaternal GrandfatherCirrhosisMaternal GrandmotherNo Known ProblemsPaternal GrandfatherNo Known ProblemsPaternal GrandmotherNo Known VdnpfpztHtrbzdDksjcofkQabtYrmrggHocvqebwLfoxcth0UzarqiJykehGjtzahaj Grandfather DeceasedMaternal GrandmotherDeceasedMotherAlivePaternal GrandfatherDeceased Paternal GrandmotherDeceasedSister3 Social History Tobacco UseTypesPacks/DayYears UsedDateSmoking Tobacco: Never Tobacco Cessation:Counseling Given: Not Answered Alcohol UseStandard Drinks/WeekCommentsNever0 (1 standard drink = 0.6 oz pure alcohol)Caffeine intake: 1-2 cups per day soda/popCommentsNoSex and Gender InformationValueDate RecordedSex Assigned at AqkcaFukcbb04/20/2023 12:40 PM EDTLegal UurExitsf88/15/2023 6:37 PM EDTGender WcuucqqbDrlryh38/20/2023 12:40 PM EDTSexual IyrgsoupdhgJxtmfmxr36/20/2023 12:40 PM EDT Last Filed Vital Signs Vital SignReadingTime TakenCommentsBlood Vfeugsor651/7204/30/2025 10:59 AM EST Pulse--Temperature--Respiratory Gskk293411/24/2022 12:51 PM EDTOxygen Saturation-- Inhaled Oxygen Concentration--Rqntfd301 kg (222 lb 6.4 oz)04/30/2025 10:59 AM WDHTzplix687.6 cm (5' 4 )11/24/2022 12:51 PM EDTBody Mass Index38.17011/24/2022 12:51 PM EDT Plan of Treatment DateTypeDepartmentCare Team (Latest Contact Info)Bbpviczygah98/05/2027 10:00 AM ESTProcedure Visit [facility] [address] [facility] [place] [phone] Alexey Etienne DO [address] [facility] [address] [place], [place] [id number] Health MaintenanceDue DateLast DoneCommentsCT Qesbcaigfewd28/30/1980Colonoscopy 1979FIT1979FOBT1979 7059Klwsaxreahybs51/30/1980COVID-19 Vaccine ( season), 05/13/2021, 08/23/2020, Additional history gpsmgaLzymsfzrp12, 05/06/2023, 04/30/2022, Additional history existsPap Smear712/, 3Colorectal Cancer Eqhfkkgqh34/26/2028FIT-DNA5Cervical Cancer Screening 04/19/2028HPV/Qmqxrp3004/19/2028Influenza SkzvugcJmnnhitde48/12/2025, 06/02/2024, 01/22/2023, Additional history existsPneumococcal Vaccine: Pediatrics (0 to 5 Years) and At-Risk Patients (6 to 64 Years)Aged OutNo longer eligible based on patient's age to complete this topic Procedures Procedure NamePriorityDate/TimeAssociated DiagnosisCommentsMM TOMOSYNTHESIS SCREENING BI06/05/2024 4:18 PM EST PAP TEOBGWbzorvj04/16/2024 12:00 AM ESTfrom Last 3 Months or Most Recently Relevant to Health Maintenance Results * MM TOMOSYNTHESIS SCREENING BI (06/05/2024 4:18 PM EST)Anatomical Region LateralityModalityOtherSpecimen (Source)Anatomical Location / Laterality Collection Method / VolumeCollection TimeReceived Time06/05/2024 4:18 PM EST Narrative 06/05/2024 4:[address] [facility] ?[address] ? [place] [address] ? Mammography Report ? Signed ? Patient: JANIE HALE ?MR#: [id number] ?? : 1980 ?Acct:[id number] ?? Age/Sex: 43 / F ?ADM Date: 06/05/24 ?? Loc: MAMMO ? Attending Dr: Alexey Etienne D.O. ? Ordering Physician: Alexey Etienne D.O. ?Results: ? Date of Service: 06/05/24 ?Follow Up: ? Procedure(s): MM tomosynthesis screening BI ?? Accession Number(s): [id number] ? cc: Alexey Etienne D.O.; Physician,Non-Staff M.D. ? Patient Name: ? JANIE HALE ? MR#: [id number] ? : 1980 ? Exam Date: 06/05/2024 ?? Ordering Doctor: DR Alexey Etienne . ? RADIOLOGY REPORT ? PROCEDURE: ? MM TOMOSYNTHESIS SCREENING BI ? COMPARISON: ? MM TOMOSYNTHESIS SCREENING BI, 05/06/2023. ??MG MAMM SCREEN 3D ?? ANTONIO CAD, 04/30/2022. ? INDICATIONS: ? Screening ? Calculator Name ? NCI Breast Cancer Risk Assessment Tool ?? 5 Year Breast Cancer Risk ? 0.90% ?? Lifetime Breast Cancer Risk ? 10.70% ?? Personal Breast Cancer ?No ?? Personal Ovarian Cancer ? No ?? Treatments ? None ?? Family Cancers ? None ? LOCATION: ? [facility] ? BREAST COMPOSITION: ? There are scattered areas of fibroglandular density. ? FINDINGS: ? DIAGNOSTIC CATEGORY 2--BENIGN FINDING: ? RIGHT BREAST: ??No significant suspicious finding. ??Scattered benign-appearing ?? calcifications are present. ??Scattered benign-appearing lymph nodes are ?? present. ??No significant change has occurred. ? LEFT BREAST: ??No significant suspicious finding. ??No significant change has ?? occurred. ? RECOMMENDATIONS: ? ROUTINE MAMMOGRAM AND CLINICAL EVALUATION IN 12 MONTHS. ? PLEASE NOTE: ??A NORMAL MAMMOGRAM DOES NOT EXCLUDE THE POSSIBILITY OF BREAST ?? CANCER. ??A CLINICALLY SUSPICIOUS PALPABLE LUMP SHOULD BE BIOPSIED. ? Dictated by: Jason Hagan M.D. on 06/05/2024 at 16:16 ? Approved by: Jason Hagan M.D. on 06/05/2024 at 16:18 ? Dictated By: ?Jason Hagan M.D. ? Signed By: ?06/05/249 ? DD/ ? TD/TT: ? Nuclear Fuel Processing Technician: Procedure Note Radiology, Radiologist, MD - 06/05/[address] [address] Mammography Report Signed Patient: JANIE HALE JMR#: [id number] : 1980Acct:[id number] Age/Sex: 43 / FADM Date: 06/05/24 Loc: MAMMO Attending Dr: Alexey Etienne D.O. Ordering Physician: Alexey Etienne D.O.Results: Date of Service: 06/05/24Follow Up: Procedure(s): MM tomosynthesis screening BI Accession Number(s): [id number] cc: Alexey Etienne D.O.; Physician,Non-Staff Dov Patient Name: JANIE HALE MR#: [id number] : 1980 Exam Date: 06/05/2024 Ordering Doctor: DR Alexey Etienne . RADIOLOGY REPORT PROCEDURE: MM TOMOSYNTHESIS SCREENING BI COMPARISON: MM TOMOSYNTHESIS SCREENING BI, 05/06/2023. MG MAMM TJHZCX0J ANTONIO CAD, 04/30/2022. INDICATIONS: Screening Calculator Name NCI Breast Cancer Risk Assessment Tool 5 Year Breast Cancer Risk 0.90% Lifetime Breast Cancer Risk 10.70% Personal Breast Cancer No Personal Ovarian Cancer No Treatments None Family Cancers None LOCATION: [facility] BREAST COMPOSITION: There are scattered areas of fibroglandulardensity. FINDINGS: DIAGNOSTIC CATEGORY 2--BENIGN FINDING: RIGHT BREAST: No significant suspicious finding. Scatteredbenign-appearing calcifications are present. Scattered benign-appearing lymph nodes are present. No significant change has occurred. LEFT BREAST: No significant suspicious finding. No significant changehas occurred. RECOMMENDATIONS: ROUTINE MAMMOGRAM AND CLINICAL EVALUATION IN 12 MONTHS. PLEASE NOTE: A NORMAL MAMMOGRAM DOES NOT EXCLUDE THE POSSIBILITY OFBREAST CANCER. A CLINICALLY SUSPICIOUS PALPABLE LUMP SHOULD BE BIOPSIED. Dictated by: Jason Hagan M.D. on 06/05/2024 at 16:16 Approved by: Jason Hagan M.D. on 06/05/2024 at 16:18 Dictated By: Jason Hagan M.D. Signed By:06/05/24 1619 DD/ 1618 TD/TT: Nuclear Fuel Processing Technician: Authorizing ProviderResult TypeResult StatusCorey Lowell DOCLINISYNC IMAGINGFinal Result * Pap Smear (04/24/2024 12:00 AM EST)Specimen (Source)Anatomical Location / LateralityCollection Method / VolumeCollection TimeReceived TimeSwabCervical swab / Unknown Narrative Authorizing ProviderResult TypeResult StatusFazio Nurse [facility] CYTOLOGY ORDERABLESFinal ResultPerforming OrganizationAddressCity/State/ZIP CodePhone Number EXTERNAL LAB from Last 3 Months or Most Recently Relevant to Health Maintenance Insurance
--- OUTSIDE RECORDS SUMMARY | 2025-04-30 20:40 | XMS_ITS | Clinical Summary ---
Author Organization [employer] tem Address [id number] [address] [place] [address] Care Team Providers Care Scouring Pads Supervisor Name Role Phone Services, [facility] Primary Care Provider Allergies Active AllergyReactionsCriticalityNoted DateCommentsCat Fpncft574Dog Epithelium Allergenic Unuqbes3102/11/2021 Other reaction(s): Unknown Qndpilywev83/05/2021 Other reaction(s): anaphylaxis, hives PenicillinsShortness Of IjyvrjCmjf19/31/2020 Other Reaction(s): Difficulty Breathing Medications MedicationSigDispense QuantityRefillsLast FilledStart DateEnd DateStatus citalopram (CeleXA) 20 mg tablet Take 1 tablet (20 mg total) by mouth daily. Can resume once zithromax course complete.11/15/2019Active albuterol (PROVENTIL,VENTOLIN) 2.5 mg /3 mL (0.083 %) nebulizer solution Indications:Severe persistent asthma without complication (CMS-HCC)Inhale 3 mL (2.5 mg total) by nebulization every 6 (six) hours as needed for wheezing. 360 mL ctive albuterol (PROVENTIL HFA;VENTOLIN HFA) 90 mcg/actuation inhaler Indications:Severe persistent asthma without complication (CMS-HCC)Inhale 2 puffs every 6 (six) hours as needed for wheezing. 18 g ctive calcium citrate (CALCITRATE) 200 mg (950 mg) tablet Take 2 tablets (400 mg total) by mouth 3 (three) times a day. 90 tablet 07/29/2022ctive Additional Information Patient taking differently:400 mg oralDaily, Reported on 02/14/2025 cholecalciferol, vitamin D3, 2,000 units tablet Take 1 tablet (2,000 Units total) by mouth in the morning. 30 tablet 07/30/2022ctive acetaminophen (TYLENOL EXTRA STRENGTH) 500 mg tablet Indications:Closed fracture of left ankle, initial encounterTake 2 tablets (1,000 mg total) by mouth every 8 (eight) hours as needed for pain. 180 tablet ctive Additional Information Patient taking differently:1,000 mg oralEvery 6 hours PRN, pain, Reported on 02/14/2025 diphenhydrAMINE (BENADRYL) 50 mg capsule 1 capsule (50 mg total) nightly as needed.08/12/2022ctive fluticasone furoate-vilanteroL (BREO ELLIPTA) 200-25 mcg/dose blister with device Indications:Severe persistent asthma without complication ([facility])Inhale 1 puff in the morning. 60 each ctive aspirin 81 mg Take 1 tablet (81 mg total) by mouth in the morning.Active EPINEPHrine (EPIPEN) 0.3 mg/0.3 mL auto-injector 0.3 mL (0.3 mg total) as needed.Active FASENRA 30 mg/mL SUBQ injection 09/08/2023ctive fluticasone propionate (FLONASE) 50 mcg/actuation nasal spray Administer 1 spray into each nostril in the morning.04/20/2024ctive lamoTRIgine (LaMICtal) 100 mg tablet Take 1 tablet (100 mg total) by mouth in the morning.Active azelastine (ASTELIN) 137 mcg (0.1 %) nasal spray Administer 1 spray into each nostril in the morning and 1 spray before bedtime. Use in each nostrilas directed.Active biotin 10,000 mcg tablet,chewable Chew and swallow.Active ascorbic acid, vitamin C, (VITAMIN C) 250 mg tablet Take 1 tablet (250 mg total) by mouth in the morning.Active pantoprazole (PROTONIX) 40 mg EC tablet Take 1 tablet (40 mg total) by mouth every morning before breakfast.12/14/2024 Active terbinafine (LamISIL) 250 mg tablet Take 1 tablet (250 mg total) by mouth in the morning.5Active montelukast (SINGULAIR) 10 mg tablet Take 1 tablet (10 mg total) by mouth nightly.5Active traZODone (DESYREL) 100 mg tablet Take 1 tablet (100 mg total) by mouth once daily at bedtime.5Active colchicine (COLCRYS) 0.6 mg tablet Take 1 tablet (0.6 mg total) by mouth in the morning and 1 tablet (0.6 mg total) before bedtime. 180 tablet 5Active Active Problems ProblemNoted DateDiagnosed DateSevere obesity (BMI >= 40)12/02/2023losed displaced fracture of second metatarsal bone of right foot08/16/2023losed nondisplaced fracture of fourth metatarsal bone of right foot08/16/2023losed nondisplaced fracture of third metatarsal bone of right foot08/16/2023History of breylktb36/14/2023losed bimalleolar fracture of left ankle08/06/2022 Overview (08/06/2022): Added automatically from request for surgery [id number] Closed fracture of left ankle07/24/2022losed fracture of left ankle, initial bkshohxia13/17/2023Lumbar gdqpzhcpidzkj73/29/2022isorder of exelkn2710/22/2021 Htillrthhziv00/07/2022Lumbar nmmysrwmqyc94/12/2021 Overview (02/18/2021): Added automatically from request for surgery [id number] Bipolar 1 ojnqovol71/06/2021evere persistent asthma without complication 07/12/2020hronic obucjdlim66/01/2019S/P FESS (functional endoscopic sinus surgery)10/26/2017Chronic nasal udnwdnmupz44/21/2018Nasal sinus polyp06/30/2017 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 03/20/20112011Xnmvxzslmi53/08/2011 Resolved Problems ProblemNoted DateDiagnosed DateResolved DateAcute kcvjgopax16/12/2020 Mild asthma with /07/cute exacerbation of extrinsic kzkfup74/espiratory waohtobg22inusitis Encounters DateTypeDepartmentCare MtptMgtzdiifana36/29/2025 11:29 AM EDT - 03/07/2025 11:59 PM EDTHospital Encounter [facility] - Cardiovascular [address] [place] [phone] Afsaneh Shen MD Chest pain, unspecified type Discharge Disposition: Home03/07/20252662Givrum19/10/2025Results Follow-Up [facility] [address] [place] [phone] Jasen Damon RN Erythrocyte Sedimentation Rate (ESR), C-reactive protein, D-Dimer, Echo complete W/O /08/2025 1:30 PM EDTOffice Visit [facility] [address] [place] [address] Afsaneh Shen MD Chest pain, unspecified type02/14/20257453Gfsxzm95/07/2025Telephone [facility] [address] [place] [phone] Filomena Khan MA Appt Nmhovfts17/01/2025bstract [facility] [address] [place] [address] External, Scanning Provider from Last 3 Months Immunizations ImmunizationAdministration DatesNext DueInfluenza Whole03/30/2011Influenza, Im Trivalent Csnkoihmdjtx30/20/2017,03/13/2014Influenza, Injectable, quadrivalent (PF)02/28/2020Influenza, Recombinant, Quadrivalent, Injectable, Preserv 05/13/2021 Family History Medical HistoryRelationNameCommentsParkinsonismFatherLung cancerMaternal GrandfatherAsthmaMotherRelationNameStatusCommentsFatherDeceasedMaternal GrandfatherDeceasedMotherAlive Social History Tobacco UseTypesPacks/DayYears UsedDateSmoking Tobacco: NeverSmokeless Tobacco: Never Tobacco Cessation:Counseling Given: Not Answered Alcohol UseStandard Drinks/WeekCommentsNo0 (1 standard drink = 0.6 oz pure alcohol)Social Connection and Isolation PanelAnswerDate RecordedIn a typical week, how many times do you talk on the phone with family, friends, or neighbors?More than three times a week07/12/2020How often do you get together with friends or relatives?More than three times a week07/12/2020How often do you attend advent or hinduism services?Never07/12/2020o you belong to any clubs or organizations such as advent groups, unions, fraternal or athletic groups, or school groups?No07/12/2020How often do you attend meetings of the clubs or organizations you belong to?Never07/12/2020re you , , , , never , or living with a partner?Never qppcubx6507/12/2020 Overall Financial Resource Strain (CARDIA)AnswerDate RecordedHow hard is it for you to pay for the very basics like food, housing, medical care, and heating?Not hard at all07/12/2020HQ-2AnswerDate RecordedTotal Tagmd32505/23/2022[facility] [place] [facility] - Occupational Stress QuestionnaireAnswerDate RecordedDo you feel stress - tense, restless, nervous, or anxious, or unable to sleep at night because yourmind is troubled all the time - these days?Not at all 07/12/2020xercise Vital SignAnswerDate RecordedOn average, how many days per week do you engage in moderate to strenuous exercise (like a brisk walk)?0 days 07/12/2020On average, how many minutes do you engage in exercise at this level?0 min07/12/2020RAPARE - TransportationAnswerDate RecordedIn the past 12 months, has lack of transportation kept you from medical appointments or from getting medications?No07/12/2020In the past 12 months, has lack of transportation kept you from meetings, work, or from getting things needed for daily living?No 07/12/2020Housing InstabilityAnswerDate RecordedAre you worried or concerned that in the next two months you may not have stable housing that you own, rent or stay in as a part of a household?No07/29/2022hildcareAnswerDate RecordedDo problems getting childcare aide make it difficult for you to work or study?No 07/12/2020mploymentAnswerDate RecordedDo you need help finding a local career center and/or a training program?No07/12/2020Hunger ScreeningAnswerDate Recorded Within the past 12 months we worried whether our food would run out before we got money to buy more.Never True02/14/2025Within the past 12 months the food we bought just didn't last and we didn't have money to get more.Never True 02/14/2025Purpose - LifeAnswerDate RecordedI have a purpose and direction in my life.Strongly Agree07/12/2020CommentsNoSex and Gender InformationValue Date RecordedSex Assigned at DgbekJmpsim28/05/2025 1:55 PM ESTLegal SexFemale 12/13/2014 11:21 AM EDTGender RulbneumFdivhu28/05/2025 1:55 PM ESTSexual GhwqibwzvtqFzxvdzdo01/05/2025 1:55 PM EST Last Filed Vital Signs Vital SignReadingTime TakenCommentsBlood Zkuvipdv104/8210 1:26 PM EDT Hnjjb9233 1:26 PM JFTRfxchfbcwyn29 ??C (98.6 ??F)01/10/2025 3:51 PM EDT Respiratory Egmx471001/10/2025 6:41 PM EDTOxygen Rkxtodelse63%02/14/2025 1:26 PM EDTInhaled Oxygen Concentration--Ggdxkm262 kg (227 lb)02/14/2025 1:26 PM EDT Iambfb884 cm (5' 3 )02/14/2025 1:26 PM EDTBody Mass Index40. 1:26 PM EDT Plan of Treatment DateTypeDepartmentCare Team (Latest Contact Info)Zeycqiyggsi12/05/2026 11:00 AM ESTLab [facility] - Lab [address] [place] [address] Health MaintenanceDue DateLast DoneCommentsAdult BMI Follow Up Plan12/06/1997 Depression Jxasagumb62/14/98399505/23/2022OVID-19 Vaccine ( season) /, 05/13/2021, 08/23/2020, Additional history existsInfluenza Jhljlgg73/, 01/22/2023, 05/13/2021, Additional history exists Adult BMI Jfmuesarc15Tobacco Hkalzvtnx14 DTaP,Tdap and Td Vaccines (2 - Td or Tdap)ap Smear Fghyqsxsxszy45/16/2024 Goals GoalPatient Goal TypeAssociated ProblemsRecent ProgressPatient-Stated?Author safe discharge to home Christiane De Paz, RN Note: Evaluation of progress towards goal: safe transition from hospital to home with family support. Home Amelie Pena LSW Note: Evaluation of progress towards goal: Discharge home with home care and family support Medical Devices ImplantedTypeAreaManufacturerDevice IdentifierShelf Expiration DateModel / Serial / LotClamp Xtrnfx 11mm 8mm Cmbn Clpon Slf Hld Mr Conditional Ns - [id number] Implanted:Qty: 1 on 07/26/2022 by Vishal Jama MD at [facility] ClampLeft: AnkleDEPUY SYNTHES OEIZL413.037 / / Clamp Xtrnfx Lg Repro Mr Conditional Cmbn Ns - [id number] Implanted:Qty: 8 on 07/26/2022 by Vishal Jama MD at [facility] ClampLeft: AnkleDEPUY SYNTHES OWWNV848.005 / / Clamp Xtrnfx Lg Opn Adj Mr Conditional Ns - [id number] Implanted:Qty: 6 on 07/26/2022 by Vishal Jama MD at [facility] ClampLeft: AnkleDEPUY SYNTHES UOWZT016.008 / / Pin Fx 9in 5/64in Stnm Brasseler Usa Ss [address] T[address]n Ns Rpl Special [id number] - [id number] Implanted:Qty: 1 on 07/26/2022 by Vishal Jama MD at [facility] Orthopedic ImplantLeft: AnkleBrasseler Usa UmqWS351-91-84 / / Pin Fx 225mm 5mm Stnm Ss Cntr Thrd Ns Lg Xtrnfxtr - [id number] Implanted:Qty: 1 on 07/26/2022 by Vishal Jama MD at [facility] Orthopedic ImplantLeft: AnkleDEPUY SYNTHES RWPJP304.790 / / Impl Nsl Propel Mn Mometasone - Sna - [id number] Implanted:Qty: 2 on 10/14/2017 by Yohan Tirado MD PhD at [facility] ImplantBilateral: SinusINTERSECT ENT INC 07/31/201860011 / NA / [id number] Fx 9in 3/32in Stnm Brasseler Usa Ss 2 Troc Smth 3 Sd Pnt Rpl Special [id number] - [id number] Implanted:Qty: 1 on 07/26/2022 by Vishal Jama MD at [facility] Other ImplantLeft: AnkleBrasseler Usa [id number] / / Mahesh 300mm Implanted:Qty: 2 on 07/26/2022 by Vishal Jama MD at [facility] Other ImplantLeft: AnkleDEPUY SYNTHES [id number] / / Drill Bit 3.5mm Implanted:Qty: 1 on 07/26/2022 by Vishal Jama MD at [facility] Other ImplantLeft: AnkleDEPUY SYNTHES [id number] / / Plate Bn 72mm T 4 Hl Va Lcp Cmbn Tib Dist Ss Strl 2.7mm Scr - [id number] Implanted:Qty: 1 on 08/18/2022 by Vishal Jama MD at [facility] PlateLeft: AnkleDEPUY SYNTHES SALES06/09/921839.118.306S / / [id number]:LATERAL ANKLEPlate Bn 116mm Cntr 6 Hl Lcp Cmbn Fib Lt Dist P/L Ss Ns - [id number] Implanted:Qty: 1 on 08/18/2022 by Vishal Jama MD at [facility] PlateLeft: AnkleDEPUY SYNTHES SALES02.112.113 / / Mahesh Xtrnfx 150mm 11mm Cfbr Mr Conditional Ns - [id number] Implanted:Qty: 1 on 07/26/2022 by Vishal Jama MD at [facility] RodLeft: AnkleDEPUY SYNTHES CZIZH246.82 / / Mahesh Xtrnfx 200mm 11mm Cfbr Mr Conditional Repro Ns - [id number] Implanted:Qty: 2 on 07/26/2022 by Vishal Jama MD at [facility] RodLeft: AnkleDEPUY SYNTHES AFUOT935.83 / / Mahesh Xtrnfx 250mm 11mm Cfbr Mr Conditional Ns - [id number] Implanted:Qty: 2 on 07/26/2022 by Vishal Jama MD at [facility] RodLeft: AnkleDEPUY SYNTHES OGSZL556.84 / / Mahesh Xtrnfx 350mm 11mm Cfbr Mr Conditional Ns - [id number] Implanted:Qty: 1 on 07/26/2022 by Vishal Jama MD at [facility] RodLeft: AnkleDEPUY SYNTHES ZJCTY264.86 / / Screw Xtrnfx 170mm 5mm Schnz Xlng Ss Blnt Troc Pnt Lg Rpl [id number] - [id number] Implanted:Qty: 2 on 07/26/2022 by Vishal Jama MD at [facility] ScrewLeft: AnkleDEPUY SYNTHES YBOKV798.55 / / Screw Xtrnfx 125mm 4mm Schnz Hip Cndyl Ss Slf Drl Mr - [id number] Implanted:Qty: 1 on 07/26/2022 by Vishal Jama MD at [facility] ScrewLeft: AnkleDEPUY SYNTHES OZWQW608.777 / / Screw Bn 12mm 2.[address] Lck Strdr Thrd Hd Ss T8 Ns Mdlr Rpl 426387+Special 856819+[id number] - [id number] Implanted:Qty: 2 on 08/18/2022 by Vishal Jama MD at [facility] ScrewLeft: AnkleDEPUY SYNTHES JPQBF744.212 / / Screw Bn 14mm 2.7[address] Lck Strdr Thrd Hd Ss T8 Ns Mdlr Rpl Special 726616+[id number]+[id number] - [id number] Implanted:Qty: 2 on 08/18/2022 by Vishal Jama MD at [facility] ScrewLeft: AnkleDEPUY SYNTHES SDSWH142.214 / / Screw Bn 16mm 2.7[address] Lck Strdr Thrd Hd Ss T8 Ns Rpl 991300+Special 696191 - [id number] Implanted:Qty: 1 on 08/18/2022 by Vishal Jama MD at [facility] ScrewLeft: AnkleDEPUY SYNTHES QQIOY779.216 / / Screw Bn 20mm 2.7[address] Lck Strdr Thrd Hd Ss T8 Ns Mdlr Rpl 308756+Special 654788 - [id number] Implanted:Qty: 2 on 08/18/2022 by Vishal Jama MD at [facility] ScrewLeft: AnkleDEPUY SYNTHES YZJUO646.220 / / Screw Bn 12mm 3.[address] Lp Hd Sm Hex Sckt Micheal Ss 2.5mm Rpl Special 77089+356527+334171 - [id number] Implanted:Qty: 1 on 08/18/2022 by Vishal Jama MD at [facility] ScrewLeft: AnkleDEPUY SYNTHES SOBIL553.812 / / Screw Bn 16mm 3.[address] Lp Hd Sm Hex Sckt Micheal Ss 2.5mm Rpl Special 408961+354830+086562 - [id number] Implanted:Qty: 1 on 08/18/2022 by Vishal Jama MD at [facility] ScrewLeft: AnkleDEPUY SYNTHES VYIOR495.816 / / Screw Bn 18mm 3.[address] Lp Sm Hex Micheal Ss Ns Rpl 420721+Special 838706 - [id number] Implanted:Qty: 1 on 08/18/2022 by Vishal Jama MD at [facility] ScrewLeft: AnkleDEPUY SYNTHES MNBDV565.818 / / Screw Bn 14mm 3.[address] Lck Strdr Cncl Ss T15 Ft Ns Sm Rpl 452886+211171+647639+36511+640397+Special 403909 - [id number] Implanted:Qty: 1 on 08/18/2022 by Vishal Jama MD at [facility] ScrewLeft: AnkleDEPUY SYNTHES ILLDB676.103 / / Screw Bn 24mm 2.[address]dr Micheal Ss Ped T8 Ns Mn - [id number] Implanted:Qty: 1 on 08/18/2022 by Vishal Jama MD at [facility] ScrewLeft: AnkleDEPUY SYNTHES GXBQH900.884 / / Screw Bn 26mm 2.[address]dr Micheal Ss Ped T8 Ns [facility] Mn - [id number] Implanted:Qty: 1 on 08/18/2022 by Vishal Jama MD at [facility] ScrewLeft: AnkleDEPUY SYNTHES OACFK062.886 / / Screw Bn 28mm 2.[address] Micheal Ss Ped T8 Ns [facility] Mn - [id number] Implanted:Qty: 2 on 08/18/2022 by Vishal Jama MD at [facility] ScrewLeft: AnkleDEPUY SYNTHES KTIRW757.888 / / Screw Bn 42mm 2.[address]dr Micheal Ss Ped T8 Ns [facility] Mn - [id number] Implanted:Qty: 1 on 08/18/2022 by Vishal Jama MD at [facility] ScrewLeft: AnkleDEPUY SYNTHES CHRXB512.962 / / Screw Bn 48mm 2.[address] Micheal Ss Ped T8 Ns Mn - [id number] Implanted:Qty: 1 on 08/18/2022 by Vishal Jama MD at [facility] ScrewLeft: AnkleDEPUY SYNTHES OIHPJ077.966 / / Screw Bn 54mm [address] Slf Drl Cnn Sm Hex Sckt L/T - [id number] Implanted:Qty: 1 on 08/18/2022 by Vishal Jama MD at [facility] ScrewLeft: AnkleDEPUY SYNTHES SCNHC057.754 / / Impl Nsl Propel Doni - Amy - [id number] Implanted:Qty: 2 on 10/14/2017 [facility]: SinusINTERSECT ENT INC12/18/201870011 / NA / [id number]mlbmZqdevs IdentifierShelf Expiration DateModel / Serial / LotScrew Bn 22mm 2.7mm 2[address] Lck Strdr Thrd Hd Ss T8 Ns Mdlr Rpl [id number]+Special [id number] - [id number] Explanted:Qty: [facility]: AnkleDEPUY SYNTHES PVVCD597.222 / / Procedures Procedure NamePriorityDate/TimeAssociated DiagnosisCommentsECHO COMPLETE WO QNYSZPLBLaobbik44/29/2025 12:12 PM EDT Chest pain, unspecified type D-DAOTZZbonjxm56/10/2025 9:36 AM EDT Chest pain, unspecified type C-REACTIVE CJYPFGZCuljxjn00/10/2025 9:36 AM EDT Chest pain, unspecified type ERYTHROCYTE SEDIMENTATION RATE (ESR)Vjqtzno2102/16/2025 9:36 AM EDT Chest pain, unspecified type from Last 3 Months Results * Echo complete W/O contrast (03/07/2025 12:12 PM EDT)ComponentValueRef Range Test MethodAnalysis TimePerformed AtPathologist SignatureLVOT stroke volume 65.92ftRDDSCUGEV9991 - 44 %XCELERALVIDd4.04mnYCXMSETOWHGd5.08sdOKXGNHQQTL4.80 0.6 - 1.1 cmXCELERAPW0.900.6 - 1.1 cmXCELERALVOT diameter1.64duKIGJNKCJKC79.80 cm/sXCELERAMV TDI E' (medial)11.30cm/sXCELERALA Volume Index22.2mL/d8YWONNHU E/A ratio0.72XCELERAE wave deceleration vuty184.00msecXCELERAMV Peak E Joshua 68.30cm/sXCELERAMV Peak A Vel95.40cm/sXCELERALA size3.40cmXCELERAAortic root 2.50cmXCELERALA wknhad88.34tr8IRXRGEGMA diastolic dimension (basal)37.0mm XCELERARVID d3.1kvYDXBIBLBSSZA4.55cmXCELERAAV peak dxi850.00cm/sXCELERALVOT peak vel1.29m/sXCELERAAV VTI40.40cmXCELERALVOT peak VTI28.90cmXCELERAAV mean gradient8.00mmHgXCELERAAV peak jkzjbxuc98.44mmHgXCELERAAV valve area1.62 XCELERAValve area - Index0.8XCELERAMV pressure 1/2 time30.00msXCELERAMV valve area p 1/2 method7.40to0MZZVUDNTC Peak Vel2.3m/sXCELERATR peak gimqzfmf30.79 mmHgXCELERAPV mean gradient3.00mmHgXCELERAPV peak gradient5.38mmHgXCELERALV ESV A2C41.00mLXCELERALV ESV A4C48.60mLXCELERALV RWT 2D41.86XCELERAAV Velocity Ratio0.72XCELERALeft Ventricle Ybum972.980283032409722nXBZEOPRSouznkicauekptvs Septum Diastolic Thickness by 3U9mlGJBOJYRBuv. RA gowgotzv6ojCgGAOOHYIDQ area 12.3ma3WHSCHHXYR Peak Systolic Uqrvxjrj88fgBqCWTKQYEVjevcqaqfo Region LateralityModalityChestN/AUltrasoundSpecimen (Source)Anatomical Location / LateralityCollection Method / VolumeCollection TimeReceived Time Narrative 03/07/2025 12:22 PM EDT Left Ventricle: Left ventricle appears normal in size. Wall thickness is normal. Systolic function is normal with an ejection fraction of 55-60%. Right Ventricle: Normal systolic excursion velocity by TDI (>9.5 cm/s). ?Aortic??Valve: There is no regurgitation or stenosis. ?Mitral??Valve: There is trace regurgitation. There is no evidence of mitral valve stenosis. ?Tricuspid??Valve: There is mild regurgitation. There is no evidence of tricuspid valve stenosis. RVSP calculated at 25 mmHg. RVSP is based on RA pressure of 3 mmHg. ?Aorta: The aortic root is normal in size. Left Ventricle Left ventricle appears normal in size. Wall thickness is normal. Systolic function is normal with an ejection fraction of 55-60%. No obvious regional wall motion abnormalities. Normal diastolic function is present. Lateral E' is 13.80 cm/s. Medial E' is 11.30 cm/s. Right Ventricle Right ventricular size appears normal. The right ventricular basal diameter is 37.0 mm. Abnormal tricuspid annular plane systolic excursion. Normal systolic excursion velocity by TDI (>9.5 cm/s). Left Atrium Left atrium volume index is normal. The left atrial volume index is 22.2 mL/m2. Right Atrium Right atrium is normal in size. The right atrial area is 12.9 cm2. IVC/SVC The right atrial pressure is estimated at 3 mmHg. There is normal collapse with deep inspiration. Mitral Valve Mitral valve structure is normal. There is trace regurgitation. There is no evidence of mitral valve stenosis. Tricuspid Valve Tricuspid valve appears to be normal. There is mild regurgitation. There is no evidence of tricuspid valve stenosis. RVSP calculated at 25 mmHg. RVSP is based on RA pressure of 3 mmHg. Aortic Valve The aortic valve is trileaflet. There is no regurgitation or stenosis. Pulmonic Valve The pulmonic valve was not well visualized. Pulmonic valve structure is grossly normal. There is noregurgitation or stenosis. The peak gradient is 5.38 mmHg. The mean gradient is 3.00 mmHg. Ascending Aorta The aortic root is normal in size. Pericardium The pericardium has a fat pad. Study Details A complete echo was performed using complete 2D, color flow Doppler and spectral Doppler. Overall the study quality was adequate. BP 134/81 Wall Scoring Baseline Score Index: 1.00 The left ventricular wall motion is normal. Authorizing ProviderResult TypeResult StatusAfsaneh Shen MDCV ECHO ORDERABLESFinal Result * Erythrocyte Sedimentation Rate (ESR) (02/16/2025 9:36 AM EDT)ComponentValueRef RangeTest MethodAnalysis TimePerformed AtPathologist SignatureESR, Erythrocyte Sedimentation Swne242 - 20 mm/h1 2:45 PM [facility] LABORATORYSpecimen (Source)Anatomical Location / LateralityCollection Method / VolumeCollection TimeReceived TimeBloodVenous blood / UnknownVenipuncture / Fgayfxf8102/16/2025 9:36 AM EDT1 9:36 AM EDT Narrative Authorizing ProviderResult TypeResult StatusAfsaneh Shen MDLAB BLOOD ORDERABLESFinal ResultPerforming OrganizationAddressCity/State/ZIP CodePhone Number [facility] [address] [place] [address], [place] [phone] * D-Dimer (02/16/2025 9:36 AM EDT)ComponentValueRef RangeTest MethodAnalysis TimePerformed AtPathologist SignatureD DIMER<1501 - 255 ng/mL02/16/2025 9:53 AM [facility]:Results <255 ng/mL DDU: The presensence of a VTE can safely be excluded with a negative D-Dimer result and Wells score. A negative result doesn't exclude the possibility of DIC. The test should berepeated along with other diagnostic tests if the patient's symptoms persist or worsen.Specimen (Source)Anatomical Location / Laterality Collection Method / VolumeCollection TimeReceived TimeBloodVenous blood / UnknownVenipuncture / Xixptcf0102/16/2025 9:36 AM EDT1 9:36 AM EDT Narrative Authorizing ProviderResult TypeResult Rosita Shen MDLAB BLOOD ORDERABLESFinal ResultPerforming OrganizationAddressCity/State/ZIP CodePhone Number [facility] [address] [place] [address], [place] * (ABNORMAL) C-reactive protein (02/16/2025 9:36 AM EDT)ComponentValueRef Range Test MethodAnalysis TimePerformed AtPathologist SignatureC REACTIVE PROTEIN1.9 (H)<=0.7 mg/dL02/16/2025 2:37 PM EDTTPREMIER [facility] Specimen (Source)Anatomical Location / LateralityCollection Method / Volume Collection TimeReceived TimeBloodVenous blood / UnknownVenipuncture / Unknown 02/16/2025 9:36 AM EDT1 9:36 AM EDT Narrative Authorizing ProviderResult TypeResult StatusAfsaneh PATTON BLOOD ORDERABLESFinal ResultPerforming OrganizationAddressCity/State/ZIP CodePhone Number [facility] [address] [address] [place] [address], [place] [phone] from Last 3 Months Insurance * Guarantor: Janie Hale TypeRelation to PatientDate of PhoneBilling AddressPersonal/SkjntuHoab[birth year][address] [place] [address] Advance Directives * Full Code (Latest Code Status on File) Date ActivatedDate InactivatedComments07/25/2022 9:15 PM07/29/2022 7:28 PM * Full Code Date ActivatedDate InactivatedComments07/24/2022 2:03 AM07/25/2022 8:55 PM * Full Code Date ActivatedDate InactivatedComments07/14/2020 7:26 PM07/16/2020 6:02 PM * Full Code Date ActivatedDate InactivatedComments07/12/2020 9:19 AM07/13/2020 2:44 PM * Full Code Date ActivatedDate InactivatedComments11/09/2019 9:35 AM11/10/2019 5:08 PM Care Teams Team MemberRelationshipSpecialtyStart DateEnd Date Services, [facility] [address] [place], [place] PCP - GeneralFamily Medicine09/04/24
--- OUTSIDE RECORDS SUMMARY | 2025-04-30 20:40 | XMS_ITS | Clinical Summary ---
Author Organization [facility] Address [address] [place] [address] Care Team Providers Care Sand Analyst Name Role Phone [facility] Stephan Cornelius JESUS Primary Care Provider Allergies No known active allergies Medications * This document contains information received from the source organization and may not represent a complete record from that organization. MedicationSigDispense QuantityRefillsLast FilledStart DateEnd DateStatus esomeprazole (NEXIUM) 40 mg ORAL CpDR Indications:Localization-related (focal) (partial) epilepsy and epileptic syndromes with simple partial seizures, with intractable epilepsy,Generalized convulsive epilepsy without mention of intractable epilepsy,Unspecified constipationTake one(1) capsule daily as needed 30 ctive citalopram (CELEXA) 20 mg tablet Indications:Episode of recurrent major depressive disorder, unspecified depression episode severityTake 0.5 tablets by mouth once daily. 15 tablet Active lamoTRIgine (LAMICTAL) 100 mg tablet Indications:Partial epilepsy (HCC)Take 2 tablets by mouth twice daily. 120 tablet Active Active Problems ProblemNoted DateDiagnosed DatePartial epilepsy secondarily generalized 03/20/20115652Vifaewwtir18/08/2011 Resolved Problems ProblemNoted DateDiagnosed DateResolved DateUnspecified epilepsy without mention of intractable jkwgwnej33 Family History Medical HistoryRelationCommentsNoneOtherRelationStatusCommentsOther Social History Tobacco UseTypesPacks/DayYears UsedDateSmoking Tobacco: NeverSmokeless Tobacco: NeverAlcohol UseStandard Drinks/WeekCommentsNo0 (1 standard drink = 0.6 oz pure alcohol)Area Deprivation IndexAnswerDate RecordedNational Score (1-100), lower number is lower riskNot on file04/15/2020State Score (1-10), lower number is lower riskNot on file04/15/2020Data from: https://www.neighborhoodatlas.medicine.[facility].edu/. Last address used for calculationNot on file04/15/2020CommentsNoSex and Gender Information ValueDate RecordedSex Assigned at BirthNot on fileLegal QbiXkvpqg87/02/2012 8:53 AM ESTGender IdentityNot on fileSexual OrientationNot on fileOccupationIndustry Job Start DateJob End DateNot WorkingNot on fileNot on fileNot on fileSTUDENTNot on fileNot on fileNot on file Last Filed Vital Signs Vital SignReadingTime TakenCommentsBlood Llmgzdfr191/6901 1:19 PM EST Jxlik5816 1:19 PM ESTTemperature--Respiratory Rate--Oxygen Saturation 100%09/18/2011 1:44 PM EDTInhaled Oxygen Concentration--Kukmgw75.5 kg (190 lb 9.6 oz)05/20/2017 1:19 PM IXFDcorct873 cm (5' 3 )05/20/2017 1:19 PM ESTBody Mass Index33.7601 1:19 PM EST Plan of Treatment Health MaintenanceDue DateLast DoneCommentsAnxiety Evajsueom86/30/1998Depression Tgkzpkfci65/30/1998HIV Wxfutoclq02/30/1998Hepatitis C Hqocllome59/30/1998 DTaP,Tdap,Td Vaccine (1 - Tdap)12/06/1998Hepatitis B Vaccine (1 of 3 - 19+ 3- dose series)12/06/1998Cervical Cancer Yzewhpxmq07/30/2001HPV Vaccine (1 - 3-dose SCDM series)12/06/2006Mammogram Oypkstmnp86/30/2020CT Kvxtfghqyufs85/30/2025 Cologuard (FIT-DNA)8696Woiarocsobe05/30/2025Colorectal Cancer Screening 12/06/2024Diabetes Kybjjxgka63/30/147002/, 09/18/2011, 03/20/2011, Additional history existsFecal Occult Blood12/06/2024Lipid Zophusddq17/30/2025 Cgeijbpgankqo25/30/2025Covid-19 Vaccine ( season)2025Influenza Vaccine (#1)2025 Procedures Procedure NamePriorityDate/TimeAssociated DiagnosisCommentsCOMPREHENSIVE METABOLIC SQTMVYuwyalw45/13/2013 12:26 PM EDT Partial epilepsy secondarily generalized Depression from Last 3 Months or Most Recently Relevant to Health Maintenance Results * (ABNORMAL) COMP METABOLIC PANEL (10/20/2012 12:26 PM EDT)ComponentValueRef RangeTest MethodAnalysis TimePerformed AtPathologist SignatureProtein, Total 7.26.0 - 8.4 g/dLLIM[facility] LABORATORYAlbumin4.33.5 - 5.0 g/dL [facility] LABORATORYCalcium9.28.5 - 10.5 mg/dLLIMA MEMORIAL [facility]OSP[facility] LABORATORYBilirubin, Total0.50.0 - 1.5 mg/dLLIMA [facility]ORIAL [facility] LABORATORYAlkaline Omnzklrtrxj4506 - 150 U/LCUN[facility] CNO493 - 40 U/LCUNIVERS[facility] UYSMNRJNSAToafcxn4879 - 100 mg/dL [facility] UQDLCBMCQAEUG640 - 25 mg/dLLIMA [facility] LABORATORYCreatinine0.66(L)0.70 - 1.40 mg/dLLIMA [facility]ORIAL [facility]ORY Kraocm303845 - 148 mmol/LCUNIVERSITY [facility] LABORATORYPotassium3.93.5 - 5.0 mmol/LCUNIVERSITY H[facility]ITALS [facility] NNRVDLFIVUJeslzczi48676 - 110 mmol/LCUNIVERS[facility] YAYSXTNTYTTI64680 - 32 mmol/LCMERCY HE[facility] ST[facility] MAIN LABORATORYAnion Iqa738 - 15 mmol/LCMERCY HE[facility] MAIN DYLQNTDDCWCIE00 - 45 U/LCUNIVERSITY [facility] LABORATORYeGFR->60[facility] eGFR-All Other Races>60.[facility] LABORATORYComment: eGFR (Estimated GFR) Units of measure: mL/min/1.73 meters squared eGFR is derived from the reexpressed MDRD Study equation using the following parameters: serum creatinine, age, gender and race. The creatinine assay has been calibrated to be traceable to IDMS. An eGFR <60 mL/min/1.73m2 for >3 months is consistent with chronic kidney disease. Refer to KDOQI guidelines for clinical interpretation. Specimen (Source)Anatomical Location / LateralityCollection Method / Volume Collection TimeReceived TimeBlood specimen (specimen)BLOOD SPECIMEN / Unknown 10/20/2012 12:26 PM EDT10/20/2012 12:28 PM EDT Narrative Authorizing ProviderResult TypeResult StatusMegan Cathleen Coe PA-C LABORATORYFinal ResultPerforming OrganizationAddressCity/State/ZIP CodePhone Number [facility] [address] [place] [address] from Last 3 Months or Most Recently Relevant to Health Maintenance Insurance Care Teams Team MemberRelationshipSpecialtyStart DateEnd Date Stephan Kaiser DO [facility]01/23/10
--- OUTSIDE RECORDS SUMMARY | 2025-04-30 20:40 | XMS_ITS | Patient Health Record ---
Author Organization - [facility] Address [address] [place] [address] Care Team Providers Care Leasing Consultant Name Role Phone ANTONIA HERRERA Unavailable [phone] Allergies Allergen (clinical drug ingredient) Drug/Non Drug Allergy documented on EMR Reaction Allergy Type Onset Date Status PenicillinUnknownDrug AllergyActive Reason For Referral No Information Medications Medication SIG (Take, Route, Frequency, Duration) Notes Start Date End Date Status Montelukast Sodium 10 MG 1 tablet Oral Once a day; Duration: 90 days asthma ActiveFasenra 30 MG/ML 1 null Subcutaneous; Duration: 56 days Asthma ActiveDoxycycline Monohydrate 100 MGTAKE 1 CAPSULE BY MOUTH TWICE DAILY FOR 7 DAYS Oral; Duration: 7 DaysNot-TakingDoxycycline Hyclate 100 MGTAKE 1 CAPSULE BY MOUTH TWICE DAILY WITH FOOD FOR 10 DAYS Oral; Duration: 10 DaysNot-TakingBreo Ellipta 200-25 MCG/ACT INHALE 1 PUFF BY MOUTH ONCE DAILY Inhalation Once a day; Duration: 30 days Asthma ActivepredniSONE 20 MGTAKE 1 TABLET BY MOUTH ONCE DAILY FOR 7 DAYS Oral; Duration: 7 DaysNot-TakingOmeprazole 40 MG 1 cap Oral Once a day; Duration: 90 days GERD ActiveTriamcinolone Acetonide 0.1 % APPLY CREAM EXTERNALLY TO AFFECTED AREA TWICE DAILY FOR FLARES TO LEGS AND OTHER AFFECTED AREAS UNTIL CLEAR External; Duration: 30 days eczema Not-TakingLamISIL AT 1 % APPLY TOPICALLY ONCE DAILY External Once a day; Duration: 30 days great toe ActiveARIPiprazole 2 MGTAKE 1 TABLET BY MOUTH ONCE DAILY Oral; Duration: 30 Days Not-TakingtraZODone HCl 100 MG 1 tablet at bedtime Oral at bedtime; Duration: 90 days insomnia ActiveCitalopram Hydrobromide 20 MG 1 tablet Oral Once a day; Duration: 90 days depression ActivelamoTRIgine 100 MG 1 tablet Oral Once a day; Duration: 90 days epilepsy ActiveCetirizine HCl 10 MG 1 tablet Oral Once a day; Duration: 30 days allergies Active Social History Tobacco Use: Social History Observation Description Date Details (start date - stop date) Never Smoker NA - NA Tobacco Control (Standard) Question Answer Notes Tobacco use: Nonsmoker AUDIT-C (Standard) Question Answer Notes Did you have a drink containing alcohol in the p ast year? No Mwaqid2AftzfnvawjosaoZazifqqf Problems Problem Type SNOMED Code ICD Code Onset Dates Problem Status W/U Status Risk Notes Problem Uncomplicated modera te persistent asthma (167229876) Moderate persistent asthma, unspecified whether complicated (J45.40) ActiveconfirmedCCMProblemEczema (71863994)Eczema, unspecified type (L30.9)Active confirmedProblemEpilepsy (40170152)Nonintractable epilepsy without status epilepticus, unspecified epilepsy type (G40.909)ActiveconfirmedCCMProblem Gastroesophageal reflux disease without esophagitis (719188994)Gastroesophageal reflux disease without esophagitis (K21.9)ActiveconfirmedProblemDepressive disorder (disorder) (02648937)Depression, unspecified depression type (F32.A) ActiveconfirmedProblemHistory of fall (834780900)History of fall (Z91.81)Active confirmed Plan Of Treatment No Information Insurance Providers Payer Name Payer Address Payer Phone Subscriber Number Group Number Insured Name Patient Relationship to Insured Coverage Start Date Coverage End Date [facility] Plan of [facility] [address] [place] [address] [id number] Carlitos Hale - patient is the [id number] 2023Medicaid of [facility] [address] [place] [id number], TiffanySelf - patient is the insuredMedicare of [place] [address] [place], [place] [phone] [id number] Hale - patient is the insured Medical (General) History Medical History History ICD Code Epilepsy DepressioneczemaAsthmaSurgical History Surgery Date(Month/Year) left ankle surgery- after fall 07/2022 brain surgery - scar tissue removed 1989 Hospitalization History Reason Date(Month/Year) fall with ankle surgery 07/2022
== END 2025-04-30 20:35 | disposition home or self-care (01) ==
LOC: LAB 20:34
PROVIDERS: Family Provider Family Medicine; Visit Provider Obstetrics & Gynecology
DX: Z01.419 Encounter for gynecological examination (general) (routine) without abnormal findings (principal)
CPT/HCPCS: 88175